=== PATIENT | female | born 1990 | race Caucasian/White ===

== ENCOUNTER 2019-08-22 19:40 | Observation (INO) | payer OTHER, SELFPAY ==
--- NOTE | 2019-08-22 19:38 | PC.NURSE ---
OB contacted with patient information, okay to bring it.
--- NOTE | 2019-08-22 19:40 | PC.NURSE ---
Patient taken to OB via wheelchair
[2019-08-22 20:00] VITALS: BMI 44.6
[2019-08-22 20:10] VITALS: BP 138/64; PULSE 102; TEMP 37.4
[2019-08-22 20:41] LABS: Add Urine Microscopic? YES; Appearance Urine Clear (Clear); Bacteria Urine 1+ /hpf; Bilirubin Urine Negative (Negative); Blood Urine Negative (Negative); Color Urine Yellow (Yellow); Glucose Urine UA Negative (Negative); Ketones Urine 1+ mg/dL (Negative); Leukocyte Esterase Ur Negative LEU/UL (Negative); Mucus Urine Rare /lpf; Nitrate Urine Negative (Negative); Protein Urine Negative (Negative); RBC Urine 0-2 /hpf (0-2); Specific Grav Ur 1.012 (1.001-1.035); Squamous Epithelial Cell Urine Few /hpf (Few); Urobilinogen Urine Negative mg/dL (<2.0); WBC Urine 0-3 /hpf
[2019-08-22 21:01] VITALS: BP 128/66; PULSE 97
--- NOTE | 2019-09-26 05:04 | P.PNOB_ITS ---
OB - Triage/Final Diagnosis Visit Information Reason for evaluation: threatened labor Evaluation Laboratory results: Laboratory Tests 08/22/19 20:29 Urine Color Yellow Urine Appearance Clear Urine pH 6.0 Ur Specific [place] 1.012 Urine Protein Negative Urine Glucose (UA) Negative Urine Ketones 1+ H Ur Blood (Man) Negative Urine Nitrate Negative Urine Bilirubin Negative Urine Urobilinogen Negative Leukocyte Esterase Rfl Negative Urine RBC 0-2 Urine WBC 0-3 Ur Squamous Epith Cells Few Urine Bacteria 1+ H Urine Mucus Rare
== END 2019-08-22 21:20 | disposition home or self-care (01) ==
PROVIDERS: Admitting Provider Obstetrics & Gynecology; Visit Provider Obstetrics & Gynecology
DX: O47.9 False labor, unspecified (principal); Z3A.00 Weeks of gestation of pregnancy not specified
CPT/HCPCS: 81001; G0378; G0379

== ENCOUNTER 2019-09-25 21:40 | Observation (INO) | payer OTHER, SELFPAY ==
[2019-09-25] VITALS (9 sets, daily range): BP systolic 124–158; BP diastolic 67–97; PULSE 92–107; BMI 43.2
--- NOTE | 2019-09-29 17:12 | PM.OBTRLD ---
OB - Triage/Final Diagnosis Visit Information Reason for evaluation: threatened labor
== END 2019-09-26 00:22 | disposition home or self-care (01) ==
PROVIDERS: Admitting Provider Obstetrics & Gynecology; Visit Provider Obstetrics & Gynecology
DX: O47.03 False labor before 37 completed weeks of gestation, third trimester (principal); Z3A.36 36 weeks gestation of pregnancy
CPT/HCPCS: G0378; G0379

== ENCOUNTER 2019-09-29 20:10 | Observation (INO) | payer OTHER, SELFPAY ==
--- NOTE | 2019-09-29 20:10 | OBADM ---
This patient, Laquita Howe, admitted to the OB room Labor/Delivery/Recovery 103 for observation. Patient/family oriented to hospital policies and general routines including ID bracelet, bed and alarms, visiting hours, pain management, procedures, bathroom and other care routines, personal items, smoking policy, room service/diet, and visiting hours. Patient/Family are encouraged to report perceived risks to care and to ask questions if they do not understand what they are told or what they should do.
[2019-09-29 20:16] VITALS: BMI 44.1
[2019-09-29 20:24] VITALS: TEMP 36.9
--- NOTE | 2019-10-14 11:40 | PM.OBTRLD ---
OB - Triage/Final Diagnosis Visit Information Date of evaluation: 10/10/19 Reason for evaluation: threatened labor Evaluation Baseline heart rate: 140 Variability: Moderate (11-25) monitor accelerations: Present monitor decelerations: None Cervical dilation (cm): 2 Cervical effacement (%): 50 station: -2 Final Diagnosis (1) False labor: Code(s): O47.9 - False labor, unspecified Status: Acute
== END 2019-09-29 21:51 | disposition home or self-care (01) ==
PROVIDERS: Admitting Provider Obstetrics & Gynecology; Visit Provider Obstetrics & Gynecology
DX: O47.1 False labor at or after 37 completed weeks of gestation (principal); Z3A.37 37 weeks gestation of pregnancy
CPT/HCPCS: G0378; G0379

== ENCOUNTER 2019-10-05 18:28 | Observation (INO) | payer OTHER, SELFPAY ==
--- NOTE | 2019-10-05 18:28 | OBADM ---
This patient, Laquita Howe, admitted to the OB room Labor/Delivery/Recovery 108 for observation. Patient/family oriented to hospital policies and general routines including ID bracelet, bed and alarms, visiting hours, pain management, procedures, bathroom and other care routines, personal items, smoking policy, room service/diet, and visiting hours. Patient/Family are encouraged to report perceived risks to care and to ask questions if they do not understand what they are told or what they should do.
[2019-10-05 18:51] VITALS: TEMP 36.5
[2019-10-05 20:16] VITALS: BMI 44.2
--- NOTE | 2019-10-07 12:13 | PM.OBTRLD ---
OB - Triage/Final Diagnosis Visit Information Date of evaluation: 09/29/19 Reason for evaluation: threatened labor Evaluation Baseline heart rate: 135 Variability: Moderate (11-25) monitor accelerations: Present monitor decelerations: None Cervical dilation (cm): 0 Cervical effacement (%): 50 station: -3 Final Diagnosis (1) False labor: Code(s): O47.9 - False labor, unspecified Status: Acute Plan: home routine labor precautions
--- NOTE | 2019-10-07 14:17 | PM.OBTRLD ---
OB - Triage/Final Diagnosis Visit Information Date of evaluation: 10/05/19 Reason for evaluation: threatened labor Evaluation Baseline heart rate: 144 Variability: Moderate (11-25) monitor accelerations: Present monitor decelerations: None Cervical dilation (cm): 0 Cervical effacement (%): 50 station: -4 Final Diagnosis (1) False labor: Code(s): O47.9 - False labor, unspecified Status: Acute Plan: home
== END 2019-10-05 20:15 | disposition home or self-care (01) ==
PROVIDERS: Admitting Provider Obstetrics & Gynecology; Visit Provider Obstetrics & Gynecology
DX: O47.1 False labor at or after 37 completed weeks of gestation (principal); Z3A.37 37 weeks gestation of pregnancy
CPT/HCPCS: G0378; G0379

== ENCOUNTER 2019-10-12 15:45 | Inpatient (IN) | payer OTHER, SELFPAY ==
[2019-10-12] VITALS (114 sets, daily range): BP systolic 93–148; BP diastolic 49–97; PULSE 55–113; TEMP 36.6–36.9; O2SAT 95–100; BMI 44.6
--- NOTE | 2019-10-12 16:45 | WPDANESEPPF ---
Anes - Initial Pre Proc Eval Procedure: labor epidural Date/Time: 10/12/19 16:45 Surgeon: Bobby Bowen MD Pre Op Diagnosis: labor pain Pre Op Diagnosis: contractions Patient Data Age: 29 Gender: F Height: Weight: Last Vital Signs Pulse 98 10/12/19 16:30 BP 134/77 10/12/19 16:30 Allergies Allergy/AdvReac Type Severity Reaction Status Date / Time cocoa butter Allergy Mild Hives Verified 09/26/19 00:11 Home Medications Medication Instructions Recorded Confirmed Type PNV cmb#95-ferrous fumarate-FA 1 tablet PO DAILY 09/26/19 10/05/19 History [] aspirin 81 mg PO DAILY 09/26/19 10/05/19 History folic acid 4 mg PO DAILY 09/26/19 10/05/19 History progesterone micronized 200 mg PO BID 09/26/19 10/05/19 History riboflavin (vitamin B2) [Vitamin 400 mg PO DAILY 09/26/19 10/05/19 History B-2] cyanocobalamin (vitamin B-12) See Rx Instructions .ROUTE .COMPLEX 09/28/19 10/05/19 History Patient hx anesthesia problems: none Family hx anesthesia problems: none PMFSH Past Medical History Medical History (Updated 10/12/19 @ 16:45 by Jemal Felipe DO) Morbid obesity Pre-eclampsia TIA (transient ischemic attack) 21 years old Family History Family History (Updated 09/28/19 @ 14:42 by Elaina Mendoza RN) Father Kidney failure Arthritis Thyroid cancer Mother Tachycardia Thyroid cancer Social History Social History Substance use: never Gender identity (if verbalized by the patient): Female Spiritual care concerns: No Anes - Eval Final PreProcedure Day of Procedure 10/12/19 16:45 Patient weight: morbidly obese ASA classification: III Anesthesia type and monitoring: regional epidural Informed Consent: The patient's anesthetic plan and its attendant risks and benefits were discussed with the patient/family/POA. Questions were solicited and answers provided to the satisfaction of the patient/family/POA.
[2019-10-12] MEDS: LACTATED RINGERS 1,000 ML 125 ML IV CONT ×2 (16:58→17:41)
[2019-10-12 17:02] LABS: Basophils Percent Auto 0.3 % (0.2-1.2); Eosinophils Absolute Auto 0.2 K/mm3 (0-0.3); Eosinophils Percent Auto 1.7 % (0-4.4); Hematocrit 36.3 % (37.0-47.0); Hemoglobin 11.9 g/dL (12.0-15.0); Immature Granulocyte Absolute 0.05 K/mm3 (0.00-0.031); Immature Granulocyte Percent A 0.5 % (0-0.5); Lymphocytes Absolute Auto 1.84 K/mm3 (0.9-3.2); Lymphocytes Percent Auto 18.5 % (18.3-44.2); Mean Corpuscular HGB Conc 32.8 g/dl (32-36); Mean Corpuscular Hemoglobin 25.7 pg (26-34); Mean Corpuscular Volume 78.4 fl (80-100); Mean Platelet Volume 11.1 fl (7.4-10.4); Monocytes Absolute Auto 0.8 K/mm3 (0.1-0.6); Monocytes Percent Auto 7.6 % (2.6-8.5); Neutrophils Absolute Auto 7.1 K/mm3 (1.3-6.7); Neutrophils Percent Auto 71.4 % (45.5-73.1); Platelet Count Result 254 k/mm3 (150-375); Red Blood Count 4.63 M/mm3 (4.2-5.4); Red Cell Distribution Width 15.9 % (11.5-14.5)
--- NOTE | 2019-10-12 17:07 | LDADM ---
This patient, Laquita Howe, was admitted to Labor/Delivery/Recovery 107 on 10/12/19 at 15:45. Plans for labor, pain management and were discussed with patient. Patient/family oriented to hospital policies and general routines including ID bracelet, bed and alarms, visiting hours, pain management, procedures, bathroom and other care routines, personal items, smoking policy, room service/diet and guest tray routines, infant security routines, and visiting hours. Patient/Family are encouraged to report perceived risks to care and to ask questions if they do not understand what they are told or what they should do. See OBIX for further documentation.
[2019-10-12 17:24] LABS: Alanine Aminotransferase 19 U/L (4-35); Albumin Level 3.2 g/dL (3.5-5.1); Alkaline Phosphatase 134 U/L (38-126); Anion Gap 8 mmol/L (8-16); Aspartate Amino Transferase 18 U/L (14-36); Bilirubin,Total 0.1 mg/dL (0.2-1.3); Blood Urea Nitrogen 8 mg/dL (7-17); Carbon Dioxide 19 mmol/L (22-30); Chloride 104 mmol/L (98-107); Estimated Glomerular Filt Rate > 60; Glucose 187 mg/dL (65-105); Potassium 3.9 mmol/L (3.4-5.0); Sodium 131 mmol/L (137-145)
[2019-10-12 17:24] LABS: Uric Acid 4.6 mg/dL (2.5-7.5)
[2019-10-12 18:33] LABS: HIV 1/2 Ab P24 Ag Result Negative (Negative)
[2019-10-12] MEDS: OXYTOCIN 30 UNITS/NS 500 ML 30 UNITS/500 ML BAG IV CONT (18:42)
--- NOTE | 2019-10-12 19:42 | PM.IMHP ---
H&P: HPI History of Present Illness Date/Time: 10/12/19 19:42 Chief complaint: contractions Narrative: Laquita Howe is a 29 year old female at 38.2 JD 10/24/19 here with spontaneous onset of labor now active phase with BBOW Review of Systems Review of Systems: All systems reviewed & are unremarkable except as noted in HPI and below Constitutional: Constitutional: Reports no additional constitutional complaints Eyes: Eyes: Reports no additional eye complaints ENT: Reports system reviewed and no additional complaints, except as documented Cardiovascular: Cardiovascular: Reports no additional cardiovascular complaints Respiratory: Respiratory: Reports no additional respiratory complaints Gastrointestinal: Gastrointestinal: Reports no additional gastrointestinal complaints Genitourinary: Genitourinary: Reports no additional female genitourinary complaints Musculoskeletal: Musculoskeletal: Reports no additional musculoskeletal complaints Integumentary/Breasts: Skin/Breast: Reports system reviewed and no additional complaints, except as docu Neurologic: Reports system reviewed and no additional complaints, except as documented Psychiatric: Psychiatric: Reports no additional psychiatric complaints Endocrine: Endocrine: Reports no additional endocrine complaints Hematologic/Lymphatic: Hematologic/Lymphatic: Reports no additional hematologic/lymphatic complaints Allergic/Immunologic: Allergic/Immunologic: Reports no additional allergic/immunologic complaints [facility] Past Medical History Medical History (Updated 10/12/19 @ 20:04 by Bobby Bowen MD) Chronic hypertension AV (generalized anxiety disorder) GERD (gastroesophageal reflux disease) History of pre-eclampsia HPV (human papilloma virus) infection MDD (major depressive disorder) Morbid obesity Nephrolithiasis TIA (transient ischemic attack) 21 years old Vaginal delivery 11/23/2009 8-11 male Vaginal delivery 12/06/2017 7-3 male Surgical History Surgical History History of cholecystectomy History of removal of calculus of renal pelvis through percutaneous nephrostomy History of tonsillectomy Family History Family History Father Kidney failure Arthritis Thyroid cancer Mother Tachycardia Thyroid cancer Grandparent Cerebrovascular accident Hypertension Kidney failure Thyroid cancer Heart disease Depression Son Asthma ADD (attention deficit disorder) Depression Social History Social History Smoking packs per day: 3 Smoking cigarettes per day: 60.0 Years smoked: 10 Smoking pack-years: 30.00 Smoking status: Former smoker Tobacco type: cigarettes Second hand tobacco smoke exposure: Yes Alcohol intake: former Substance use: never Substance use type: does not use Living arrangements: with family 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 Gender identity (if verbalized by the patient): Female Sexual Orientation (if Verbalized by the Patient): Straight or Heterosexual Spiritual care concerns: No Agree to blood products: Yes Meds Home Medications and Allergies Home Medications Medication Instructions Recorded Confirmed Type PNV cmb#95-ferrous fumarate-FA 1 tablet PO DAILY 09/26/19 10/05/19 History [] aspirin 81 mg PO DAILY 09/26/19 10/05/19 History folic acid 4 mg PO DAILY 09/26/19 10/05/19 History progesterone micronized 200 mg PO BID 09/26/19 10/05/19 History riboflavin (vitamin B2) [Vitamin 400 mg PO DAILY 09/26/19 10/05/19 History B-2] cyanocobalamin (vitamin B-12) See Rx Instructions .ROUTE .COMPLEX 09/28/19 10/12/19 History Allergies Allergy/AdvReac Type Severity Reaction Status Date / Time cocoa butter Allergy Mild Hives Verified 09/26/19 00:1
--- NOTE | 2019-10-12 20:05 | WPDHPUPDATE1 ---
History and Physical Update Update Date/Time: 10/12/19 20:05 History and Physical has been reviewed, including an updated exam of the patient. There are NO changes in the patient's condition. Risks, benefits, and alternatives have been discussed and questions answered. Patient agrees to proceed with procedure.
--- NOTE | 2019-10-12 20:05 | WPDOBADMIT ---
Obstetrics - Admit Note Admission Note: record reviewed. No pertinent additions to the history and/or any subsequent changes in the physical findings that are not consistent with the expected course of the were found. Additions to the history and/or subsequent changes in the physical findings follow. None. SOOL 4cm fht stable on admit
--- NOTE | 2019-10-12 20:06 | PM.OBPNLAB ---
Pain Control Date/time seen: 10/12/191922 Pain control: tolerating well and epidural Pelvic Exam Dilation (cm): 7 Effacement (%): 90 station: -2 Amniotic membrane status: Bulging Comments: arom performed with fse tube 2500-3000cc clear af removed fse and iupc placed without difficulty fht stable Contractions Monitor mode: External Contraction frequency: 5 Contraction duration: 45 Contraction pattern: Regular Contraction intensity: Moderate Status status: Category l Assessment and Plan Assessment: active labor Plan: continuous present management and begin patient augmentation Comments: anticipate vag delivery
--- NOTE | 2019-10-12 23:22 | PM.OBPNLAB ---
Pain Control Date/time seen: 10/12/19 21:22 Pain control: tolerating well and epidural Pelvic Exam Dilation (cm): 8 Effacement (%): 100 station: 0 Amniotic membrane status: Ruptured Contractions Monitor mode: Internal Contraction frequency: 5 Contraction pattern: Regular Contraction intensity: Moderate Status status: Category l Assessment and Plan Pitocin rate (mU/min): 10 Assessment: active labor Plan: continuous present management
--- NOTE | 2019-10-12 23:23 | PM.OBPRVD ---
OB - Delivery Note Procedure Delivery date: 10/12/19 Procedure: nsvvd events: Polyhydramnios Intrapartal events: Hydramnios Delivery augmentation: rupture of membranes Delivery monitor: internal FHT and internal uterine Route of delivery: Episiotomy description: None Laceration description: None Specimen: Yes Estimated blood loss (mL): 54 Anesthesia type: Epidural Disposition: floor Narrative: patient had a normal spontaneous vertex vaginal delivery over intact perineum of a viable female infant spontaneous respirations and cry follow-up suction normal transition placenta spontaneous intact three-vessel cord no episiotomy no lacerations cervix rectal check no sponges left in the vagina and no fistula sphincter is intact mom and baby in delivery room in stable condition count correct complications none Baby Date of : 10/12/19 Time of : 23:10 Weeks of gestation at delivery: 38 Infant gender: Female Weight (pounds): 8 Weight (ounces): 13 presentation: vertex position: Right Occiput Anterior Placenta delivery description: Spontaneous cord vessel description: 3 Vessels score one minute: 8 score five minutes: 9
[2019-10-12] MEDS: OXYTOCIN 30 UNITS/NS 500 ML 30 UNITS/500 ML BAG 125 UNITS IV CONT (23:45)
[2019-10-13] VITALS (7 sets, daily range): BP systolic 120–144; BP diastolic 60–82; PULSE 87–103; RESP 12–18; TEMP 36.5–37.1; O2SAT 98–100
[2019-10-13] MEDS: BENZOCAINE 20% AER SPR (*SP) 56 GM CAN 1 SPRAY TOPICAL (00:15)
[2019-10-13] MEDS: IBUPROFEN 600 MG TABLET PO ×5 (00:15→23:32)
[2019-10-13] MEDS: WITCH HAZEL 40 PADS 1 PAD TOPICAL (00:15)
--- NOTE | 2019-10-13 01:44 | PC.NURSE ---
0141 Pt to floor per wheelchair accompanied by baby in crib and staff. Plan of care and floor routines explained to patient and she voices understanding. Mom encouraged to make needs and concerns known to staff.
[2019-10-13 05:51] LABS: Hematocrit 31.7 % (37.0-47.0); Hemoglobin 10.4 g/dL (12.0-15.0)
[2019-10-13 07:29] LABS: Rapid Plasma Reagin Non-Reactive (NonReactive)
--- NOTE | 2019-10-13 07:43 | WPDANLDPN2 ---
Anes-Prog Note L&D Date/Time: 10/13/19 07:43 Comfortable throughout: labor Neuraxial method: epidural Epidural/Spinal procedure site: clean & non-tender Neuro status: Neuro function grossly intact. Cardiovascular status: normal Respiratory status: normal Airway patency: baseline Mental status: baseline Post-Op hydration status: normal Vital Signs: Last Vital Signs Temp 36.9 C 10/13/19 03:01 Pulse 87 10/13/19 03:01 Resp 12 10/13/19 03:01 BP 120/68 10/13/19 03:01 Pulse Ox 98 10/12/19 23:19 I/O: Intake & Output 10/12/19 10/12/19 10/13/19 15:59 23:59 07:59 Intake Total 1500 Output Total 117 Balance 1500 -117 Post-procedural complaints: none Patient feedback: Patient satisfied with anesthetic care.
[2019-10-13] MEDS: MULTIVIT/MIN/PREN/FOL AC/IRON TABLET 1 TAB PO (08:55)
--- NOTE | 2019-10-13 10:30 | PC.NURSE ---
Consulted with patient, upon entering mother has infant to breast. Mother reports last child for 11 months with no issues. Mother has infant latched in cross cradle, is eagerly nursing. Reviewed infant feeding cues, frequencies, duration of feedings, feeding elimination flow sheet, and signs of adequate intake. Reviewed positioning/alignment, holding breast in U hold and guided asymmetrical latch on. Infant nursed eagerly, with steady draws and frequent swallowing noted. Reviewed signs of a correct latch, effective nursing and suck swallow ratio. Infant was able to maintain latch without discomfort to mother. Nipple care reviewed. Instructed mother to call out for RN assistance if she is unable to latch for feeding or she has discomfort with nursing. Instructed feeding should be initiated three hours from start of last feeding or if feeding cues are noted before. Mother voiced understanding of information shared.
[2019-10-14] MEDS: BENZOCAINE 20% AER SPR (*SP) 56 GM CAN 1 SPRAY TOPICAL (06:45)
[2019-10-14] MEDS: WITCH HAZEL 40 PADS 1 PAD TOPICAL (06:45)
[2019-10-14] MEDS: IBUPROFEN 600 MG TABLET PO ×3 (06:46→17:56)
[2019-10-14] MEDS: DOCUSATE SODIUM 100 MG CAPSULE PO ×2 (06:46→16:46)
[2019-10-14] MEDS: MULTIVIT/MIN/PREN/FOL AC/IRON TABLET 1 TAB PO (06:46)
[2019-10-14 07:45] VITALS: BP 152/84; PULSE 94; RESP 18; TEMP 36.6; O2SAT 99
--- NOTE | 2019-10-14 11:10 | PC.NURSE ---
consult with pt. mother states she began supplementing last evening, was fussy after feedings. Mother was concerned was sleepy at times and was not getting enough. is under bili lights since last night. Mother is pumping after all breastfeedings and will offer expressed milk as part of supplement along with some formula. Infant will eagerly latch without difficulties or discomfort, she is on and off during feedings. Mother states today is on and off during feedings and spitting up freq. Discussed spitting up is common for the first few days and to report to RN if more than small amounts. Requested mother call out for observation of infant feeding for concerns with her on and off while feeding.
--- NOTE | 2019-10-14 15:08 | P.PNOB_ITS ---
OB - PN: Subj Subjective Date/time seen: 10/13/19 18:08 Patient comments: no complaints, pain well controlled, tolerating diet and flatus present [place] baby status: doing well [place] feeding status: exclusively breast feeding OB - PN: Obj Data Labs CBC & Chem 7: 10/13/19 05:18 10/12/19 16:48 OB - PN A/P Assessment and Plan (1) Term delivered: Code(s): O80 - Encounter for full-term uncomplicated delivery Status: Acute (2) Polyhydramnios: Code(s): O40.9XX0 - Polyhydramnios, unspecified trimester, not applicable or unspecified Status: Acute (3) Chronic hypertension: Code(s): I10 - Essential (primary) hypertension Status: Acute (4) AV (generalized anxiety disorder): Code(s): F41.1 - Generalized anxiety disorder Status: Acute (5) Compound heterozygous MTHFR mutation [id number]: Code(s): E72.12 - Methylenetetrahydrofolate reductase deficiency Status: Acute (6) Morbid obesity: Code(s): E66.01 - Morbid (severe) obesity due to excess calories Status: Acute Time Spent With Patient Time: Total time spent is greater than 50% in coordination of care (as documented) at patient's floor/unit and/or counseling patient: Review of Systems Review of Systems: All systems reviewed & are unremarkable except as noted in HPI and below Exam Const: General: comfortable and no acute distress Orientation/consciousness: patient oriented x3 Chest: Breast/axilla inspection: normal inspection of the breasts Breast/axilla palpation: normal palpation of the breasts Resp: Effort & Inspection: normal respiratory effort Auscultation: clear to auscultation bilaterally Cardio: Rate: regular rate GI: Auscultation: normal bowel sounds : General: Yes bladder normal to inspection and Yes no CVA tenderness Manual OB Exam: Deferred manual OB exam Psych: Appearance: grossly normal Mental Status: mental status grossly normal Affect: normal affect Attitude: cooperative Judgement: Good judgement present (Psych)
--- NOTE | 2019-10-14 15:11 | PM.OBDSVD ---
DS: Admitting Diagnosis Admitting Diagnosis Admitting Diagnosis: contractions term spontaneous onset of labor polyhydramnios obesity MTHFR DS: Discharge Diagnosis Discharge Diagnosis (1) Term delivered: Code(s): O80 - Encounter for full-term uncomplicated delivery Status: Acute (2) Spontaneous onset of labor: Status: Acute (3) GERD (gastroesophageal reflux disease): Code(s): K21.9 - Gastro-esophageal reflux disease without esophagitis Status: Acute (4) MDD (major depressive disorder): Code(s): F32.9 - Major depressive disorder, single episode, unspecified Status: Acute (5) HPV (human papilloma virus) infection: Code(s): B97.7 - Papillomavirus as the cause of diseases classified elsewhere Status: Acute (6) AV (generalized anxiety disorder): Code(s): F41.1 - Generalized anxiety disorder Status: Acute (7) Chronic hypertension: Code(s): I10 - Essential (primary) hypertension Status: Acute (8) Polyhydramnios: Code(s): O40.9XX0 - Polyhydramnios, unspecified trimester, not applicable or unspecified Status: Acute (9) Pre-eclampsia: Code(s): O14.90 - Unspecified pre-eclampsia, unspecified trimester Status: Acute (10) Morbid obesity: Code(s): E66.01 - Morbid (severe) obesity due to excess calories Status: Acute (11) Compound heterozygous MTHFR mutation [id number]: Code(s): E72.12 - Methylenetetrahydrofolate reductase deficiency Status: Acute OB - DS: Summary Hospital Course Time spent discussing smoking cessation with patient: 3 to 10 minutes OB Procedures : NST and Ultrasound OB Procedures Intrapartum: Spontaneous Vag Delivery OB Procedures: : None Peripartum Data Infant Delivery Method: Natural Vaginal Laceration description: None complications: none [place] 1: Gender: Female Disposition of : home Status at Discharge Functional status at discharge: independent ambulation Overall status at discharge: patient is back to baseline Time Spent with Patient Time attestation: Total time spent providing and/or coordinating discharge services: Time spent: Less than 30 minutes Exam Const: General: comfortable, no acute distress, alert and awake Orientation/consciousness: patient oriented x3 Limitations: no limitations Chest: Breast/axilla inspection: normal inspection of the breasts Breast/axilla palpation: normal palpation of the breasts Resp: Effort & Inspection: normal respiratory effort Auscultation: clear to auscultation bilaterally Cardio: Rate: regular rate GI: GI Palp: Yes Soft to palpation Percussion: Yes normal to percussion : General: Yes bladder normal to inspection and Yes no CVA tenderness Manual OB Exam: Deferred manual OB exam Psych: Appearance: grossly normal Affect: normal affect Attitude: cooperative Thought content: Yes Normal thought content present Judgement: Good judgement present (Psych) DS: Data Data Completed and Pending Pending studies at discharge: Pending at discharge 10/12/19 23:10 Surgical [PTH] Routine Discharge Plan Discharge Attending physician on discharge: Bobby Bowen Discharging Clinician: Bobby Bowen Anticipated Discharge Date/Time: 10/14/19 15:14 Patient Disposition: Home, Self-Care Activity: may shower, unlimited and may drive after 2 weeks Diet: as tolerated and regular Wound Care Instructions: follow printed instructions Discharge Instructions: routine Patient Instructions: Antibiotic Form Stand Alone Forms: General Discharge Information Follow-up/Referrals: Bobby Bowen MD [Physician] - Discharge Medications: New ibuprofen 600 mg Tablet 600 mg PO Q6H Qty: 90 RF: 2 Continued PNV cmb#95-ferrous fumarate-FA [] 28 mg iron- 800 mcg tablet 1 tablet PO DAILY Qty: 100 RF: 3 D
[2019-10-17 10:14] VITALS: BP 154/88; PULSE 83; RESP 20; TEMP 37; O2SAT 99
== END 2019-10-14 18:15 | disposition home or self-care (01) | DRG 560 ==
LOC: ANHLDR 16:20 → ANHOB2 10-13 01:57
PROVIDERS: Admitting Provider Obstetrics & Gynecology; Visit Provider Obstetrics & Gynecology
DX: O40.3XX0 Polyhydramnios, third trimester, not applicable or unspecified (principal); Z37.0 Single live birth; Z3A.38 38 weeks gestation of pregnancy; O10.92 Unspecified pre-existing hypertension complicating childbirth; O99.214 Obesity complicating childbirth; E66.01 Morbid (severe) obesity due to excess calories; O99.344 Other mental disorders complicating childbirth; F41.1 Generalized anxiety disorder; F32.9 Major depressive disorder, single episode, unspecified; O99.62 Diseases of the digestive system complicating childbirth; K21.9 Gastro-esophageal reflux disease without esophagitis; O99.284 Endocrine, nutritional and metabolic diseases complicating childbirth; E72.12 Methylenetetrahydrofolate reductase deficiency
CPT/HCPCS: 36415; 80053; 84550; 85014; 85018; 85025; 86592; 86703; 86850; 86900; 86901; 88307; A9270; G0432; J2590; J2795; J7120

== ENCOUNTER 2020-05-01 10:54 | Observation (INO) | payer OTHER, SELFPAY ==
[2020-05-01] VITALS (18 sets, daily range): BP systolic 97–138; BP diastolic 48–88; PULSE 74–115; RESP 13–22; TEMP 36.4–38.1; O2SAT 96–100
--- NOTE | ~2020-05-01 | CT_ITS ---
EXAMINATION: CT chest abdomen pelvis w con DATE: 05/01/2020 12:28 INDICATION: Syncope. Right upper quadrant abdominal pain. Nausea and vomiting. Hypotension. TECHNIQUE: Computed tomography (CT) of the chest, abdomen, and pelvis was performed with 100 cc Omnip aque 350 intravenous contrast. Automated exposure control and iterative reconstruction technique were employed. Exam dose: 2021.62 mGy-cm total exam DLP. COMPARISON: 05/01/2020 portable AP chest is not available on PACS at this time FINDINGS: CHEST CT: There is an approximately 9 mm posterior basilar left lower lobe pulmonary nodule. Differential diagn osis includes pulmonary granuloma, hamartoma, less likely pulmonary malignancy. No pulmonary infiltrate or consolidation. No hilar or mediastinal mass lesion or lymphadenopathy. Normal heart size. No thoracic aortic aneurys m or dissection is evident. ABDOMEN/PELVIS CT: The gallbladder is present. No bile duct or pancreatic duct dilatation. Diffuse hepatic steatosis. No hepatic, splenic, pancreatic, and adrenal or renal space-occupying mass lesion is evident. Normal ca liber of the abdominal aorta. No intraperitoneal or retroperitoneal or pelvic mass lesion or adenopat hy or ascites. Retroflexed uterus. The urinary bladder and adnexal areas are unremarkable. No bowel obstruction, bowel wall thickening, pneumatosis or intraperitoneal free air. Small fat-containing umbilical hernia. Included skeletal structures are unremarkable. IMPRESSION: 9 mm nonspecific left lower lobe pulmonary nodule; diffusion diagnosis includes pulmonar y granuloma, hamartoma, less likely pulmonary malignancy Diffuse hepatic steatosis Retroflexed uterus Reviewed, dictated and finalized at [facility]. Reviewed, dictated and finalized at location B. IMPRESSION: 9 mm nonspecific left lower lobe pulmonary nodule; diffusion diagn osis includes pulmonary granuloma, hamartoma, less likely pulmonary malignancy Diffuse hepatic steatosis Retroflexed uterus
--- NOTE | ~2020-05-01 | US_ITS ---
EXAMINATION: US carotid duplex BI DATE: 05/02/2020 09:54 INDICATION: Syncope TECHNIQUE: Grayscale, color Doppler, and pulsed Doppler images of the cervical carotid arteries were obtained. The degree of vessel stenosis is placed in one of the following categories: normal, <50%, 5 0-69%, >=70% but less than near-occlusion, near-occlusion, or total occlusion. Note that percent sten osis relative to normal distal artery lumen diameter is indirectly measured from velocity measurement s as described by Regulo, et al. Radiology 2003; 229:340-346. COMPARISON: None. FINDINGS: RIGHT: The right common carotid artery (CCA) peak systolic velocity (PSV) is 111 cm/s. The right internal ca rotid artery (ICA) PSV is 118 cm/s. The right ICA end-diastolic velocity (EDV) is 45 cm/s. The right ICA/CCA PSV ratio is 1.1. Grayscale and color Doppler images of the stress no evident stenosis or gregory que in the ICA. The external carotid artery (ECA) PSV is 100 cm/s. There is antegrade flow in the rig ht vertebral artery. LEFT: The left CCA PSV is 135 cm/s. The left ICA PSV is 117 cm/s. The left ICA EDV is 44 cm/s. The left ICA /CCA PSV ratio is 0.9. Grayscale and color Doppler images and straight no evident stenosis or plaque in the ICA. The ECA PSV is 113 cm/s. There is antegrade flow in the left vertebral artery. IMPRESSION: 1. Normal study. No evident plaque or stenosis in the either the left or right internal carotid arter ies. Reviewed, dictated and finalized at location A. IMPRESSION: 1. Normal study. No evident plaque or stenosis in the either the left or right internal carotid arteries.
--- NOTE | ~2020-05-01 | US_ITS ---
US abdomen complete EXAMINATION: US Abdomen Complete INDICATION: Generalized abdominal pain PROCEDURE: Realtime High Resolution abdomen ultrasound. COMPARISON: No prior studies for comparison FINDINGS: Gallbladder is surgically absent. Common bile duct measures 6 mm. Liver echotexture is increased, consistent with fatty infiltration. Liver is enlarged measuring 19.8 cm.. Pancreas within normal limits. Pancreatic tail is obscured by bowel gas. Spleen is enlarged m easuring 15.5 cm. Renal echotexture is within normal limits bilaterally without hydronephrosis, conto ur deforming mass or renal stone. Right kidney measures 12.2 cm. Left kidney measures 14 cm. Visualized aspects of the aorta and IVC are within normal limits. Portal vein is patent. IMPRESSION: 1: Hepatosplenomegaly. 2: Status post cholecystectomy. Reviewed, dictated and finalized at location A.
--- NOTE | ~2020-05-01 | XR_ITS ---
EXAMINATION: XR chest 1V portable 05/01/2020 12:39 INDICATION: Abdomen pain. Syncope. PROCEDURE: AP portable chest COMPARISON: No prior studies for comparison. FINDINGS: The lungs are clear. The cardiomediastinal silhouette is within normal limits. There are no pleural effusions. There is no pneumothorax suspected. IMPRESSION: 1: NO ACUTE CARDIOPULMONARY DISEASE. Reviewed, dictated and finalized at location A.
[2020-05-01 11:38] LABS: Basophils Percent Auto 0.4 % (0.2-1.2); Eosinophils Absolute Auto 0.1 K/mm3 (0-0.3); Eosinophils Percent Auto 1.1 % (0-4.4); Hematocrit 41.6 % (37.0-47.0); Hemoglobin 13.4 g/dL (12.0-15.0); Immature Granulocyte Absolute 0.03 K/mm3 (0.00-0.031); Immature Granulocyte Percent A 0.3 % (0-0.5); Lymphocytes Absolute Auto 0.67 K/mm3 (0.9-3.2); Lymphocytes Percent Auto 7.3 % (18.3-44.2); Mean Corpuscular HGB Conc 32.2 g/dl (32-36); Mean Corpuscular Hemoglobin 26.3 pg (26-34); Mean Corpuscular Volume 81.6 fl (80-100); Mean Platelet Volume 9.3 fl (7.4-10.4); Monocytes Absolute Auto 0.8 K/mm3 (0.1-0.6); Monocytes Percent Auto 8.4 % (2.6-8.5); Neutrophils Absolute Auto 7.6 K/mm3 (1.3-6.7); Neutrophils Percent Auto 82.5 % (45.5-73.1); Platelet Count Result 242 k/mm3 (150-375); Red Cell Distribution Width 14.3 % (11.5-14.5); White Blood Count 9.2 K/mm3 (4.5-10.0)
--- NOTE | 2020-05-01 11:41 | PC.NURSE ---
Provider at bedside.
[2020-05-01] MEDS: ONDANSETRON INJ 4 MG/2 ML VIAL IV PUSH ×3 (11:42→18:17)
[2020-05-01] MEDS: SODIUM CHLORIDE 0.9% IV 1,000 ML 999 ML IV CONT ×2 (11:42→12:00)
--- NOTE | 2020-05-01 11:43 | ECG_ITS ---
Measurements Intervals [place] Rate: 85 P: 41 MD: 171 QRS: 39 QRSD: 84 T: 18 QT: 370 QTc: 440 Interpretive Statements SINUS RHYTHM BORDERLINE T WAVE ABNORMALITY- INFERIOR LEADS BASELINE ARTIFACT- V1 BORDERLINE ECG Electronically Signed On 05-01-2020 12:07:38 CDT by Jayden Handley D.O.
--- NOTE | 2020-05-01 11:44 | ED.ABDPAIN ---
HPI - Abdominal Pain General Chief Complaint: Abdominal Pain Stated Complaint: abd pain, vomiting Time Seen by Provider: 05/01/20 11:43 Source: patient Mode of arrival: wheelchair Limitations: no limitations History of Present Illness HPI narrative: Patient is a 30-year-old female who presents for evaluation of abdominal pain, nausea and vomiting. Patient states she experienced right upper quadrant abdominal pain last evening, as well as numerous episodes of emesis. Emesis is nonbloody, nonbilious. No fever, she has experienced chills. She denies any chest pain or shortness of breath. Patient states she has felt generally weak, denying any numbness. She has passed out several times at home per patient. Patient denies any dark or tarry stools. No recent infections or illnesses. No recent sick contacts. She denies history of heart attack. She states she does have a history of TIA. She is not on any anticoagulation. Related Data Allergies Allergy/AdvReac Type Severity Reaction Status Date / Time cocoa butter Allergy Mild Hives Verified 09/26/19 00:11 Review of Systems Review of Systems: Narrative: CONSTITUTIONAL: Denies fever, reports chills and diaphoresis EYES: Denies visual changes, redness, or discharge. ENT: Denies rhinorrhea, congestion, sore throat, or otalgia. CARDIOVASCULAR: Denies chest pain, palpitations, or edema. RESPIRATORY: Denies cough or dyspnea. GASTROINTESTINAL: Reports abdominal pain, nausea and vomiting GENITOURINARY: Denies dysuria or hematuria. SKIN: Denies rash or itching. MUSCULOSKELETAL: Denies back pain, joint pain, or myalgia. NEUROLOGIC: Denies headache, numbness, reports feeling generally weak PMFSH Past Medical History Medical History Chronic hypertension AV (generalized anxiety disorder) GERD (gastroesophageal reflux disease) History of pre-eclampsia HPV (human papilloma virus) infection MDD (major depressive disorder) Morbid obesity Nephrolithiasis TIA (transient ischemic attack) 21 years old Vaginal delivery 11/23/2009 8-11 male Vaginal delivery 12/06/2017 7-3 male Surgical History Surgical History History of cholecystectomy History of removal of calculus of renal pelvis through percutaneous nephrostomy History of tonsillectomy Family History Family History Father Kidney failure Arthritis Thyroid cancer Mother Tachycardia Thyroid cancer Grandparent Cerebrovascular accident Hypertension Kidney failure Thyroid cancer Heart disease Depression Son Asthma ADD (attention deficit disorder) Depression Social History Social History Smoking packs per day: 3 Smoking cigarettes per day: 60.0 Years smoked: 10 Smoking pack-years: 30.00 Smoking status: Former smoker Tobacco type: cigarettes Second hand tobacco smoke exposure: Yes Alcohol intake: former Substance use: never Substance use type: does not use 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 EYES: 2+ PERRLA and EOMI. ENT: Nares clear, no rhinorrhea or epistaxis. Mucous membranes dry. NECK: Supple. CHEST: No respiratory distress, breathing even and non labored HEART: Regular rate, sinus rhythm ABDOMEN:Non distended, tender to palpation, RUQ, epigastric and umbilical area, + guarding, non rigid,no rebound EXTREMITIES: Normal range of motion. No edema. SKIN: Pale, warm, dry, no rash. NEURO:No focal deficits. Alert and oriented x3 Course Vital Signs Vital signs: Vital Sig
[2020-05-01 11:50] LABS: Alanine Aminotransferase 46 U/L (4-35); Albumin Level 4.6 g/dL (3.5-5.1); Alkaline Phosphatase 68 U/L (38-126); Anion Gap 7 mmol/L (8-16); Aspartate Amino Transferase 39 U/L (14-36); Bilirubin,Total 0.3 mg/dL (0.2-1.3); Blood Urea Nitrogen 15 mg/dL (7-17); Calcium 9.6 mg/dL (8.4-10.2); Carbon Dioxide 28 mmol/L (22-30); Chloride 104 mmol/L (98-107); Estimated CRCL calculation 148 ml/min; Estimated Glomerular Filt Rate > 60; Glucose 126 mg/dL (65-105); Lipase 65 U/L (23-300); Potassium 4.9 mmol/L (3.4-5.0); Sodium 139 mmol/L (137-145)
[2020-05-01] MEDS: MORPHINE SULFATE (*CRX) 4 MG/ML INJ IV PUSH ×4 (12:00→21:57)
[2020-05-01 12:02] LABS: Alveolar/Arterial O2 Gradient 26.6 mmHg; Carboxyhemoglobin 0.4 % THb (0-2.0); Device ROOM AIR; Fractional Inspired Oxygen 21 %; HCO3 ABG 22.8 mEq/l (22.0-26.0); Methemoglobin ABG 0.3 %THb (0-1.5); Modified Allen's Test Pass; Oxygen Content ABG 16.7 %vol (16.0-22.0); Oxygen Saturation ABG 93.1 % (95.0-100.0); Oxyhemoglobin 92.4 % THb (90.0-100.0); PCO2 ABG 43.9 mmHg (35.0-45.0); PO2 ABG 70.6 mmHg (80.0-100.0); PO2 FiO2 Ratio Arterial Blood 3.36 %; Reduced Hemoglobin 6.9 %THb (0-5.0); Site Drawn RIGHT RADIAL; Total Hemoglobin 12.8 g/dL (12.0-18.0); pH ABG 7.334 (7.350-7.450)
[2020-05-01 12:21] LABS: Add Urine Microscopic? YES; Appearance Urine Clear (Clear); Bilirubin Urine 1+ (Negative); Blood Urine Trace-Intact (Negative); Color Urine Yellow (Yellow); Glucose Urine UA Negative (Negative); Ketones Urine 1+ mg/dL (Negative); Leukocyte Esterase Ur Negative LEU/UL (Negative); Nitrate Urine Negative (Negative); Protein Urine 3+ mg/dL (Negative); Specific Grav Ur >= 1.030 (1.001-1.035); Urobilinogen Urine 0.2 mg/dL (<2.0); pH Urine 6.5 (5.0-9.0)
[2020-05-01 12:24] LABS: Squamous Epithelial Cell Urine Many /hpf (Few)
[2020-05-01 12:25] LABS: Bacteria Urine 2+ /hpf
--- NOTE | 2020-05-01 12:32 | PC.NURSE ---
Pt back from CT at this time, xray at bedside.
[2020-05-01 12:58] LABS: INR 1.1; Lactic Acid Reflex 1.4 mmol/L (0.7-2.1); Partial Thromboplastin Time 29.4 SECONDS (22.3-36.8); Prothrombin Time 14.7 Seconds (11.1-14.7)
[2020-05-01 13:14] LABS: NT Pro B Type Natriuretic Pept 33 PG/ML (5-100); Troponin I < 0.012 ng/mL (0.000-0.034)
[2020-05-01 13:33] LABS: Thyroid Stimulating Hormone 0.938 uIU/mL (0.465-4.680)
--- NOTE | 2020-05-01 15:05 | ADMGEN ---
This patient, Laquita Howe, was admitted to [facility] Surg Room 310-01. Patient/family oriented to hospital policies and general routines including ID bracelet, bed and alarms, visiting hours, pain management, procedures, bathroom and other care routines, personal items, smoking policy, room service/diet, and visiting hours. Information on how to activate the Rapid Response Team has been discussed. Patient/Family are encouraged to report perceived risks to care and to ask questions if they do not understand what they are told or what they should do.
[2020-05-01] MEDS: SODIUM CHLORIDE 0.9% IV 1,000 ML 125 ML IV CONT ×2 (15:14→23:09)
[2020-05-01] MEDS: FAMOTIDINE 20 MG/2 ML VIAL IV PUSH ×2 (15:38→20:19)
[2020-05-01 17:10] LABS: Troponin I < 0.012 ng/mL (0.000-0.034)
--- NOTE | 2020-05-01 18:00 | PM.IMHP ---
H&P: HPI History of Present Illness Date/Time: 05/01/20 18:00 Chief Complaint: Abdominal pain, nausea, and vomiting. Narrative: This is a 30-year-old female with hypertension who presented to the emergency department earlier today from home for evaluation of abdominal pain, nausea, and vomiting. She developed sharp and shooting periumbilical abdominal pain last night but seemed to be self-limiting and she was able to sleep overnight. This morning the pain returned and has been severe, associated with nausea and innumerable bouts of nonbloody, nonbilious emesis. Since that time she has felt quite weak and she reports having passed out several times in the car on the way to the hospital. On arrival to the emergency department she had a near syncopal episode in which she became pale, weak, and nearly unresponsive. Her blood pressure 97/64 but that has improved with IV fluid rehydration. She had a small but otherwise unremarkable bowel movement this morning. She used to suffer from GERD years ago but has not had troubles with that for a long time and denies that this is similar. She does take ibuprofen but certainly not on a daily basis. She consumes perhaps 2 cups of coffee a day. No sick contacts. She denies chest pain shortness of breath. No hematemesis, melena, or hematochezia. Review of Systems Review of Systems: Narrative: Twelve systems were reviewed with pertinent positives and negatives as per HPI. No sinus congestion, rhinorrhea, otalgia, or odynophagia. No exposure to those positive for COVID-19. She denies cough. No dysuria or hematuria. No history of pancreatitis or peptic ulcers. Except as documented, all other systems were reviewed and are negative. [facility] Past Medical History Medical History (Updated 05/01/20 @ 15:16 by Kristin Kapadia PA-C) Anxiety Chronic hypertension Compound heterozygous MTHFR mutation [id number] Depression Gastroesophageal reflux disease Hepatic steatosis History of pre-eclampsia Human papilloma virus infection Morbid obesity Nephrolithiasis Surgical History Surgical History (Updated 05/01/20 @ 22:21 by Kristin Kapadia PA-C) History of cholecystectomy History of lithotripsy History of tonsillectomy Family History Family History Father Kidney failure Arthritis Thyroid cancer Mother Tachycardia Thyroid cancer Grandparent Cerebrovascular accident Hypertension Kidney failure Thyroid cancer Heart disease Depression Son Asthma ADD (attention deficit disorder) Depression Social History Social History (Updated 05/01/20 @ 22:21 by Kristin Kapadia PA-C) Social History: Surrogate decision maker: Chris Matias, . Code status: Full code. Smoking status: Never smoker Alcohol intake: never Substance use: current Substance use type: marijuana Additional living arrangements comments: Lives in [place] with her and 3 children. 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 Gender identity (if verbalized by the patient): Female Sexual Orientation (if Verbalized by the Patient): Straight or Heterosexual Spiritual care concerns: No Agree to blood products: Yes Meds Home Medications and Allergies Home Medications Medication Instructions Recorded Confirmed Type PNV cmb#95-ferrous fumarate-FA 1 tablet PO DAILY #100 tablet 10/14/19 05/01/20 Rx [] ibuprofen 600 mg PO Q6H #90 tablet 10/14/19 05/01/20 Rx labetalol 200 mg PO BID 05/01/20 05/01/20 History Allergies Allergy/AdvReac Type Severity Reaction Status Date / Time cocoa butter Allergy Mild Hives Verified 09/26/19 00:11 Vital Signs Vital Signs - 24 hr 05/01/20 10:59 05/01/20 11:39 05/01/20 11:45 Temperature 98.2 F Pulse Rate 97 74 77 Respiratory Rate 18 22 H 19 Blood Pressure 138/88 97/64 L 137/83 Pulse O
[2020-05-01 18:02] LABS: Hepatitis B Surface Antigen Negative (Negative)
[2020-05-01 18:08] LABS: HAV RESULT Negative (Negative); Hepatitis B Core IgM Result Negative (Negative)
[2020-05-01 18:20] LABS: Hepatitis C Virus Antibody Reactive (Negative)
[2020-05-01] MEDS: PANTOPRAZOLE SODIUM IV 40 MG VIAL IV PUSH (20:19)
[2020-05-02] VITALS (18 sets, daily range): BP systolic 101–159; BP diastolic 58–91; PULSE 81–106; RESP 18–22; TEMP 36.3–37.2; O2SAT 97–100
--- NOTE | 2020-05-02 | ECHO_ITS ---
Patient Info Name: Laquita Howe Age: 30 years : 1990 Gender: Female Ht: 69 in Wt: 289 lbs BSA: 2.59 m2 HR: 84 bpm BP: 101 / 58 mmHg Heart Rhythm: Sinus Rhythm Technical Quality: Good Exam Date: 05/02/2020 1:25 PM Exam Location: [facility] Pulmonary Patient Status: Outpatient Admit Date: 05/01/2020 Staff Ordering Physician: Jaz Mckeon PA-C Panel Edge Painter: Chris Lang, JAVED, RT Attending Provider: Jaz Mckeon PA-C Referring Physician: Linda CR; Exam Type: CA echo doppler color flow Study Info Indications R55 - Syncope and collapse Strain analysis performed. Complete two-dimensional, color flow and Doppler transthoracic echocardiogram is performed. Summary 1. Complete two-dimensional, color flow and Doppler transthoracic echocardiogram is performed. 2. Normal left ventricular size with borderline concentric hypertrophy. There is good systolic function of all segments with a calculated ejection fraction 52%. Visually the ejection fraction appears to be 55-60%. Global longitudinal strain was mildly reduced at -15% suggesting early systolic dysfunction. No focal wall motion abnormalities. Normal diastolic function. 3. Borderline right ventricular enlargement with normal function. 4. Borderline left atrial enlargement. 5. Dilated inferior vena cava. 6. No significant valve disease. 7. Normal sinus rhythm. Left Ventricle Left ventricular chamber dimension is normal. Left ventricular systolic function is normal, estimated at 55-60%. There is no increased left ventricular wall thickness. Left ventricular septal wall motion is normal. The left ventricular diastolic function is normal. Global longitudinal strain is abnormal at 15 %. Right Ventricle Right ventricular chamber dimension is mildly enlarged. Right ventricular systolic function is normal. Left Atria Left atrial chamber dimension is normal. Right Atria Right atrial chamber dimension is normal. Aortic Valve The aortic valve is trileaflet. There is no aortic valve sclerosis. There is no aortic valve stenosis. There is no aortic valve regurgitation. Pulmonic Valve The pulmonic valve is normal. There is no pulmonic valve stenosis. There is no pulmonic regurgitation. Mitral Valve The mitral valve has normal leaflets. There is no mitral valve stenosis. There is trace mitral valve regurgitation. Tricuspid Valve The tricuspid valve leaflets are normal. There is no significant tricuspid valve stenosis. There is trace tricuspid valve regurgitation. No pulmonary hypertension, estimated pulmonary arterial systolic pressure is Empty. Pericardium/Pleural The pericardium appears normal. There is no pericardial effusion. Inferior Vena Cava Dilated inferior vena cava with >50% collapse upon inspiration consistent with Empty right atrial pressure, Empty. Aorta The aortic root size at the sinus of Valsalva is normal. The prox ascending aorta size is normal. Left Ventricular Outflow Tract Name Value Normal LVOT 2D LVOT Diameter 2.0 cm LVOT Doppler LVOT Peak Gradient
[2020-05-02] MEDS: MORPHINE SULFATE (*CRX) 4 MG/ML INJ IV PUSH ×5 (03:38→21:59)
[2020-05-02 06:35] LABS: Magnesium 1.3 mg/dL (1.6-2.3)
[2020-05-02 06:41] LABS: Basophils Percent Auto 0.4 % (0.2-1.2); Eosinophils Absolute Auto 0.1 K/mm3 (0-0.3); Eosinophils Percent Auto 1.2 % (0-4.4); Hematocrit 34.8 % (37.0-47.0); Hemoglobin 11.2 g/dL (12.0-15.0); Immature Granulocyte Absolute 0.02 K/mm3 (0.00-0.031); Immature Granulocyte Percent A 0.4 % (0-0.5); Lymphocytes Absolute Auto 0.82 K/mm3 (0.9-3.2); Lymphocytes Percent Auto 16.9 % (18.3-44.2); Mean Corpuscular HGB Conc 32.2 g/dl (32-36); Mean Corpuscular Hemoglobin 26.2 pg (26-34); Mean Corpuscular Volume 81.3 fl (80-100); Mean Platelet Volume 9.6 fl (7.4-10.4); Monocytes Absolute Auto 0.5 K/mm3 (0.1-0.6); Monocytes Percent Auto 10.1 % (2.6-8.5); Neutrophils Absolute Auto 3.5 K/mm3 (1.3-6.7); Platelet Count Result 196 k/mm3 (150-375); Red Blood Count 4.28 M/mm3 (4.2-5.4); Red Cell Distribution Width 14.6 % (11.5-14.5); White Blood Count 4.9 K/mm3 (4.5-10.0)
[2020-05-02 07:25] LABS: Thyroid Stimulating Hormone Reflex 0.464 uIU/mL (0.465-4.68)
[2020-05-02 07:49] LABS: Free T4 Free Thyroxine Reflex 0.78 ng/dL (0.78-2.19)
[2020-05-02 07:52] LABS: Alanine Aminotransferase 32 U/L (4-35); Albumin Level 3.6 g/dL (3.5-5.1); Alkaline Phosphatase 58 U/L (38-126); Anion Gap 6 mmol/L (8-16); Aspartate Amino Transferase 25 U/L (14-36); Bilirubin,Total 0.5 mg/dL (0.2-1.3); Blood Urea Nitrogen 13 mg/dL (7-17); Carbon Dioxide 27 mmol/L (22-30); Chloride 105 mmol/L (98-107); Estimated CRCL calculation 170 ml/min; Estimated Glomerular Filt Rate > 60; Glucose 107 mg/dL (65-105); Sodium 138 mmol/L (137-145)
[2020-05-02] MEDS: MAGNESIUM SULF 2 GM/WATER 50ML 2 GM/50 ML BAG IVPB (08:28)
[2020-05-02] MEDS: MULTIVIT/MIN/PREN/FOL AC/IRON TABLET 1 TAB PO (08:29)
[2020-05-02] MEDS: PANTOPRAZOLE SODIUM IV 40 MG VIAL IV PUSH (08:29)
[2020-05-02] MEDS: FAMOTIDINE 20 MG/2 ML VIAL IV PUSH (08:29)
[2020-05-02 09:09] LABS: Beta HCG Quantitative < 2.39 mIU/ML
[2020-05-02 09:10] LABS: Total Triiodothyronine (T3) 0.91 NG/ML (0.97-1.69)
[2020-05-02] MEDS: LACTATED RINGERS 1,000 ML 150 ML IV CONT (09:56)
--- NOTE | 2020-05-02 10:15 | WPDANESEPPF ---
Anes - Initial Pre Proc Eval Procedure: Operation Date: 05/02/20 13:30 Proposed Procedures p Esophagogastroduodenoscopy/Stent Removal - Kenneth Graves MD Date/Time: 05/02/20 10:15 Surgeon: Jaz Mckeon PA-C Pre Op Diagnosis: Syncope, abdominal pain Patient Data Age: 30 Gender: F Height: 5 ft 9 in Weight: 131.5 kg Last Vital Signs Temp 97.8 F 05/02/20 09:58 Pulse 82 05/02/20 09:58 Resp 22 H 05/02/20 09:58 BP 136/69 05/02/20 09:58 Pulse Ox 99 05/02/20 09:58 Allergies Allergy/AdvReac Type Severity Reaction Status Date / Time cocoa butter Allergy Mild Hives Verified 09/26/19 00:11 Home Medications Medication Instructions Recorded Confirmed Type PNV cmb#95-ferrous fumarate-FA 1 tablet PO DAILY #100 tablet 10/14/19 05/01/20 Rx [] ibuprofen 600 mg PO Q6H #90 tablet 10/14/19 05/01/20 Rx labetalol 200 mg PO BID 05/01/20 05/01/20 History Laboratory Tests 05/01/20 05/01/20 05/01/20 11:32 11:32 11:54 WBC 9.2 K/mm3 K/mm3 (4.5-10.0) RBC 5.10 M/mm3 M/mm3 (4.2-5.4) Hgb 13.4 g/dL D g/dL (12.0-15.0) Hct 41.6 % % (37.0-47.0) MCV 81.6 fl fl (80-100) MCH 26.3 pg pg (26-34) MCHC 32.2 g/dl g/dl (32-36) RDW 14.3 % % (11.5-14.5) Plt Count 242 k/mm3 k/mm3 (150-375) MPV 9.3 fl fl (7.4-10.4) Immature Gran % (Auto) 0.3 % % (0-0.5) Neut % (Auto) 82.5 % H % (45.5-73.1) Lymph % (Auto) 7.3 % L % (18.3-44.2) [place] % (Auto) 8.4 % % (2.6-8.5) Eos % (Auto) 1.1 % % (0-4.4) Baso % (Auto) 0.4 % % (0.2-1.2) Lymph # (Auto) 0.67 K/mm3 L K/mm3 (0.9-3.2) [place] # (Auto) 0.8 K/mm3 H K/mm3 (0.1-0.6) Eos # (Auto) 0.1 K/mm3 K/mm3 (0-0.3) Baso # (Auto) 0.0 K/mm3 K/mm3 (0.0-0.1) Abs Immat Gran (auto) 0.03 K/mm3 K/mm3 (0.00-0.031) Absolute Neuts (auto) 7.6 K/mm3 H K/mm3 (1.3-6.7) Absolute Nucleated RBC 0.0 K/mm3 K/mm3 (0.0-0.012) Nucleated RBC % 0.0 % % (0.0-0.2) PT INR APTT Puncture Site Right radial ABG pH 7.334 L (7.350-7.450) ABG pCO2 43.9 mmHg mmHg (35.0-45.0) ABG pO2 70.6 mmHg L mmHg (80.0-100.0) ABG PO2/FiO2 Ratio 3.36 % % ABG HCO3 22.8 mEq/l mEq/l (22.0-26.0) ABG O2 Saturation 93.1 % L % (95.0-100.0) ABG O2 Content 16.7 %vol %vol (16.0-22.0) ABG Base Excess -3.0 mEq/l mEq/l (+/-2.0) A-a Gradient 26.6 mmHg mmHg Oxyhemoglobin 92.4 % THb % THb (90.0-100.0) Carboxyhemoglobin 0.4 % THb % THb (0-2.0) Methemoglobin 0.3 %THb %THb (0-1.5) Reduced Hemoglobin 6.9 %THb H %THb (0-5.0) Total Hemoglobin 12.8 g/dL g/dL (12.0-18.0) O2 Delivery Device Room air O2 Liters/Min Not Reportable FiO2 21 % % Sodium 139 mmol/L mmol/L (137-145) Potassium 4.9 mmol/L mmol/L (3.4-5.0) Chloride 104 mmol/L mmol/L (98-107) Carbon Dioxide 28 mmol/L mmol/L (22-30) Anion Gap 7 mmol/L L mmol/L (8-16) BUN 15 mg/dL D mg/dL (7-17) Creatinine 0.70 mg/dL mg/dL (0.7-1.0) Estim Creat Clear Calc 148 ml/min ml/min Estimated GFR > 60 (59 - ) Glucose 126 mg/dL H mg/dL (65-105) Lactic Acid Calcium 9.6 mg/dL mg/dL (8.4-10.2) Magnesium Total Bilirubin 0.3 mg/dL mg/dL (0.2-1.3) AST 39 U/L H U/L (14-36) ALT 46 U/L H U/L (4-35) Alkaline Phosphatase 68 U/L U/L (38-126) Troponin I NT-Pro-B Natriuret Pep Total Protein 8.0 g/dL g/dL (6.3-8.2) Albumin 4.6 g/dL g/dL (3.5-5.1)
--- NOTE | 2020-05-02 10:22 | WPDGICN ---
Assessment and Plan Assessment and plan (1) Nausea & vomiting: Qualifiers: Vomiting Intractability: non-intractable Vomiting type: unspecified Qualified Code(s): R11.2 - Nausea with vomiting, unspecified Code(s): R11.2 - Nausea with vomiting, unspecified Status: Acute Assessment and Plan: CT scan unremarkable, no signs of gib will proceed with EGD and biopsies, assess if esophagitis, ulcers, celiac disease, etc also noted that she uses marijuana and wonder if affecting her symptoms (2) Near syncope: Code(s): R55 - Syncope and collapse Status: Acute Assessment and Plan: ? vasovagal carotid doppler normal per primary team (3) Upper abdominal pain: Code(s): R10.10 - Upper abdominal pain, unspecified Status: Acute Assessment and Plan: assess with egd supportive care more recommendations after egd (4) Morbid obesity: Code(s): E66.01 - Morbid (severe) obesity due to excess calories Status: Acute Assessment and Plan: diet (5) Nodule of lower lobe of left lung: Code(s): R91.1 - Solitary pulmonary nodule Status: Acute Assessment and Plan: CXR was normal GI Consult Note Consult date/time: 05/02/20 10:22 Reason for consult: epigastric pain, nausea and vomiting HPI: Laquita Howe is a 30 year old female with history of hypertension on labetalol, cholecystectomy. She is here with new onset of upper abdominal pain, nausea, and vomiting, pain describes as sharp and shooting periumbilical abdominal pain started night before admission improved after going to sleep but more severe during the morning of admission with intractable nausea and vomiting, she was lightheaded and feeling like passing out several times. She was slightly hypotensive in the ER but improved after IV fluid. She does take ibuprofen but only as needed, also smokes marijuana only if she has migraines. CT scan a/p reviewed, 9 mm nonspecific left lower lobe pulmonary nodule, diffuse hepatic steatosis, retroflexed uterus. Never had EGD. She is also taking vitamins (she is ) Review of Systems Constitutional: Constitutional: Denies headache(s) and Denies weakness Eyes: Eyes: Denies blurry vision ENT: Reports Normal hearing present, Denies headache(s) and Denies neck pain Cardiovascular: Cardiovascular: Denies chest pain and Denies dyspnea Respiratory: Respiratory: Denies dyspnea Gastrointestinal: Gastrointestinal: Reports no additional gastrointestinal complaints Genitourinary: Genitourinary: Denies dysuria Musculoskeletal: Musculoskeletal: Denies neck pain Integumentary/Breasts: Skin/Breast: Denies dry skin Neurologic: Reports Normal hearing present, Denies headache(s) and Denies weakness Psychiatric: Psychiatric: Denies anxiety Endocrine: Endocrine: Denies change in body appearance Hematologic/Lymphatic: Hematologic/Lymphatic: Denies easy bleeding Allergic/Immunologic: Allergic/Immunologic: Denies urticaria PMFSH Past Medical History Medical History (Updated 05/02/20 @ 10:49 by Kenneth Graves MD) Anxiety Chronic hypertension Compound heterozygous MTHFR mutation [id number] Depression Gastroesophageal reflux disease Hepatic steatosis History of pre-eclampsia Human papilloma virus infection Morbid obesity Nephrolithiasis Upper abdominal pain Surgical History Surgical History (Updated 05/01/20 @ 22:21 by Kristin Kapadia PA-C) History of cholecystectomy History of lithotripsy History of tonsillectomy Family History Family History Father Kidney failure Arthritis Thyroid cancer Mother Tachycardia Thyroid cancer Grandparent Cerebrovascular accident Hypertension Kidney failure Thyroid cancer Heart disease Depression Son Asthma ADD (attention deficit disorder) Depression Social History Social History (
[2020-05-02] MEDS: SODIUM CHLORIDE 0.9% IV 1,000 ML 125 ML IV CONT ×2 (12:26→20:30)
[2020-05-02] MEDS: ONDANSETRON INJ 4 MG/2 ML VIAL IV PUSH (13:43)
--- NOTE | 2020-05-02 14:22 | PM.IMPN ---
Progress Note: A&P Assessment and Plan (1) Abdominal pain: Qualifiers: Abdominal location: generalized Qualified Code(s): R10.84 - Generalized abdominal pain Code(s): R10.9 - Unspecified abdominal pain Status: Acute Assessment and Plan: Patient reports upper abdominal pain in a band-like fashion across the upper abdomen which is burning, aching and pulling . The pain is improving. She is status post cholecystectomy many years ago. No acute findings on imaging. EGD was unremarkable and biopsies were obtained to r/o celiac sprue. She does feel that pain is improving. Continue pepcid BID Serial abdominal exams. GI consulted with input appreciated. Continue supportive care with analgesics as needed and monitor (2) Near syncope: Code(s): R55 - Syncope and collapse Status: Acute Assessment and Plan: Possible vasovagal response. Reportedly she had several syncopal episodes in route to the emergency department. Telemetry reviewed from 05/02/20 demonstrates sinus rhythm. She is not orthostatic. Carotid doppler US demonstrated no carotid stenosis bilaterally. Continue fall precautions (seems she had a vagal response to the ED with a decrease in blood pressure). Continue telemetry monitoring Continue IV fluids Echocardiogram performed with results pending (3) Nausea & vomiting: Qualifiers: Vomiting Intractability: non-intractable Vomiting type: unspecified Qualified Code(s): R11.2 - Nausea with vomiting, unspecified Code(s): R11.2 - Nausea with vomiting, unspecified Status: Acute Assessment and Plan: Supportive care to include antiemetics and IV fluid rehydration as needed. (4) Hepatic steatosis: Code(s): K76.0 - Fatty (change of) liver, not elsewhere classified Status: Inactive Assessment and Plan: Diffuse hepatic steatosis noted on CT today. Likely the etiology of mildly elevated LFTs. Hepatitis panel demonstrates reactive Hepatitis C Ab screen with HCV RNA pending. She has been told she had positive Hepatitis C Ab screen in the past but PCR was negative. She did see GI regarding this in the past. Await repeat labs. Will order abdominal US (5) Nodule of lower lobe of left lung: Code(s): R91.1 - Solitary pulmonary nodule Status: Acute Assessment and Plan: Nonspecific 9 mm left lower lobe nodule noted incidentally on CT today. Differential diagnosis includes pulmonary granuloma, hamartoma, and less likely pulmonary malignancy. Follow-up with PCP outpatient Subjective Date/time seen: 05/02/20 14:22 Ms. Howe is a 30 y.o. female with PMH significant for hypertension who is seen in follow-up for abdominal pain, nausea, vomiting, and near syncope. She is doing okay today and feeling a bit better. She was able her lunch and has not had any vomiting. She still has some upper abdominal pain, band-like across the upper abdomen with aching/pulling quality, burning, but this is better today. She is not having any vaginal discharge or vaginal bleeding. She has no pelvic pain or lower abdominal pain. She still has nausea but zofran is helping. She is not having any diarrhea or constipation and bowels are regular. She has no chest pain or pressure. She has no shortness of breath. She notes she still has some lightheadedness with standing. Review of Systems Review of Systems: All systems reviewed & are unremarkable except as noted in HPI and below Exam Narrative: Exam Narrative: General: Very pleasant, well-developed, and morbidly obese 30 y.o. female lying supine in bed in no acute distress. HEENMT: Normocephalic and atraumatic. Sclerae anicteric. EOMI. Oral mucosa moist. Neck: Supple. Cardiac: Regular rate and rhythm. S1 and S2 normal. Telemetry reviewed from 05/02 with sinus rhythm. Lungs: Lungs are clear to auscultation bilaterally. Abdomen: Positive bowel sounds throughout. Abd
[2020-05-02] MEDS: ENOXAPARIN 40 MG/0.4 ML SYRINGE SUB-Q (20:29)
[2020-05-02] MEDS: FAMOTIDINE 20 MG TABLET PO (20:30)
[2020-05-03] VITALS (7 sets, daily range): BP systolic 134–151; BP diastolic 80–88; PULSE 86–97; RESP 18–20; TEMP 36.1–36.2; O2SAT 94–98
[2020-05-03] MEDS: MORPHINE SULFATE (*CRX) 4 MG/ML INJ IV PUSH ×2 (03:13→08:59)
--- NOTE | 2020-05-03 03:18 | PC.NURSE ---
Rosario RN giving morphine 4mg IVP. Morphine bottle put in sharps prior to scanning medication. Medication barcode was not scanned, had to put in manually. This RN witnessed.
[2020-05-03] MEDS: SODIUM CHLORIDE 0.9% IV 1,000 ML 125 ML IV CONT (05:39)
[2020-05-03 06:23] LABS: Basophils Percent Auto 0.5 % (0.2-1.2); Eosinophils Absolute Auto 0.1 K/mm3 (0-0.3); Eosinophils Percent Auto 2.2 % (0-4.4); Hematocrit 33.2 % (37.0-47.0); Hemoglobin 10.6 g/dL (12.0-15.0); Immature Granulocyte Absolute 0.02 K/mm3 (0.00-0.031); Immature Granulocyte Percent A 0.3 % (0-0.5); Lymphocytes Absolute Auto 1.65 K/mm3 (0.9-3.2); Lymphocytes Percent Auto 27.9 % (18.3-44.2); Mean Corpuscular HGB Conc 31.9 g/dl (32-36); Mean Corpuscular Hemoglobin 26.4 pg (26-34); Mean Corpuscular Volume 82.8 fl (80-100); Mean Platelet Volume 9.4 fl (7.4-10.4); Monocytes Absolute Auto 0.7 K/mm3 (0.1-0.6); Monocytes Percent Auto 11.8 % (2.6-8.5); Neutrophils Absolute Auto 3.4 K/mm3 (1.3-6.7); Neutrophils Percent Auto 57.3 % (45.5-73.1); Platelet Count Result 187 k/mm3 (150-375); Red Blood Count 4.01 M/mm3 (4.2-5.4); Red Cell Distribution Width 14.5 % (11.5-14.5); White Blood Count 5.9 K/mm3 (4.5-10.0)
[2020-05-03 06:36] LABS: Alanine Aminotransferase 47 U/L (4-35); Albumin Level 3.7 g/dL (3.5-5.1); Alkaline Phosphatase 66 U/L (38-126); Anion Gap 5 mmol/L (8-16); Aspartate Amino Transferase 41 U/L (14-36); Bilirubin,Total 0.3 mg/dL (0.2-1.3); Blood Urea Nitrogen 10 mg/dL (7-17); Calcium 8.2 mg/dL (8.4-10.2); Carbon Dioxide 29 mmol/L (22-30); Chloride 106 mmol/L (98-107); Estimated CRCL calculation 170 ml/min; Estimated Glomerular Filt Rate > 60; Glucose 107 mg/dL (65-105); Lipase 62 U/L (23-300); Magnesium 1.7 mg/dL (1.6-2.3); Sodium 140 mmol/L (137-145)
--- NOTE | 2020-05-03 08:05 | PC.NURSE ---
patient to ultrasound per w/c
[2020-05-03] MEDS: FAMOTIDINE 20 MG TABLET PO (09:03)
[2020-05-03] MEDS: MULTIVIT/MIN/PREN/FOL AC/IRON TABLET 1 TAB PO (09:03)
--- NOTE | 2020-05-03 09:15 | WPDANESPN ---
Anes - Prog Note Post-Op Date/Time: 05/03/20 09:15 Cardiovascular status: normal Respiratory status: normal Airway patency: baseline Mental status: baseline Post-Op hydration status: normal Vital Signs: Last Vital Signs Temp 96.9 F L 05/03/20 08:00 Pulse 97 05/03/20 08:13 Resp 20 05/03/20 08:13 BP 143/88 H 05/03/20 08:13 Pulse Ox 98 05/03/20 08:13 Pain Score (VAS): 02/18 I/O: Intake & Output 05/02/20 05/03/20 05/03/20 23:59 07:59 15:59 Intake Total 1730 1450 Output Total 800 Balance 1730 650 Laboratory Tests 05/03/20 05:49 05/03/20 05:49 05/03/20 05/03/20 05:49 05:49 WBC 5.9 RBC 4.01 L Hgb 10.6 L Hct 33.2 L MCV 82.8 MCH 26.4 MCHC 31.9 L RDW 14.5 Plt Count 187 MPV 9.4 Immature Gran % (Auto) 0.3 Neut % (Auto) 57.3 Lymph % (Auto) 27.9 Labette % (Auto) 11.8 H Eos % (Auto) 2.2 Baso % (Auto) 0.5 Lymph # (Auto) 1.65 Labette # (Auto) 0.7 H Eos # (Auto) 0.1 Baso # (Auto) 0.0 Abs Immat Gran (auto) 0.02 Absolute Neuts (auto) 3.4 Absolute Nucleated RBC 0.0 Nucleated RBC % 0.0 Sodium 140 Potassium 4.0 Chloride 106 Carbon Dioxide 29 Anion Gap 5 L BUN 10 Creatinine 0.60 L Estim Creat Clear Calc 170 Estimated GFR > 60 Glucose 107 H Calcium 8.2 L Magnesium 1.7 Total Bilirubin 0.3 AST 41 H ALT 47 H Alkaline Phosphatase 66 Total Protein 7.0 Albumin 3.7 Lipase 62 Patient Feedback: Patient satisfied with anesthetic care.
--- NOTE | 2020-05-03 10:17 | WPDGIPROGNO ---
Progress Note: A&P Assessment and Plan (1) Upper abdominal pain: Code(s): R10.10 - Upper abdominal pain, unspecified Status: Acute Assessment and Plan: improved, ultrasound reviewed and showed fatty liver she can go home by GI standpoint (2) Nausea & vomiting: Qualifiers: Vomiting Intractability: non-intractable Vomiting type: unspecified Qualified Code(s): R11.2 - Nausea with vomiting, unspecified Code(s): R11.2 - Nausea with vomiting, unspecified Status: Acute Assessment and Plan: better, EGD was unremarkable (pending biopsies) I wonder if could be also due to marijuana use- quit if possible (3) Near syncope: Code(s): R55 - Syncope and collapse Status: Acute Assessment and Plan: work up by primary ? vasovagal (4) Morbid obesity: Code(s): E66.01 - Morbid (severe) obesity due to excess calories Status: Acute Assessment and Plan: diet (5) Hepatic steatosis: Code(s): K76.0 - Fatty (change of) liver, not elsewhere classified Status: Acute Assessment and Plan: with mild elevated liver enzymes, main risk factor is obesity I can see her in office with repeat labs (6) Marijuana use: Code(s): F12.90 - Cannabis use, unspecified, uncomplicated Status: Acute Subjective Date/time seen: 05/03/20 10:17 Interval history: no more nausea, still some upper abdominal discomfort. Review of Systems Review of Systems: All systems reviewed & are unremarkable except as noted in HPI and below Exam Const: General: comfortable and no acute distress Nutritional Appearance: obese HENMT: General nose exam: Normal nares present Eyes: General: appearance normal, both eyes and all related structures Neck: Neck: no JVD Resp: Auscultation: clear to auscultation bilaterally Cardio: Rate: regular rate Rhythm: regular rhythm GI: Inspection: non-distended GI Palp: Yes Soft to palpation Skin: General skin exam: normal color Neuro: General: gait normal Speech: normal speech Extrem: General: normal to inspection Psych: Mental Status: mental status grossly normal Objective Data Vital Signs Vital Signs: Vital Signs - 24 hr 05/02/20 11:06 05/02/20 11:16 05/02/20 11:26 Temperature Pulse Rate 92 81 81 Respiratory Rate 19 18 20 Blood Pressure 151/88 H 142/86 H 132/67 Pulse Oximetry 99 99 97 05/02/20 12:00 05/02/20 14:00 05/02/20 14:05 Temperature 98.9 F Pulse Rate 89 86 90 Respiratory Rate 18 Blood Pressure 137/78 151/86 H Pulse Oximetry 98 100 05/02/20 14:10 05/02/20 16:00 05/02/20 16:26 Temperature Pulse Rate 100 88 Respiratory Rate Blood Pressure 157/91 H Pulse Oximetry 100 97 05/02/20 20:00 05/02/20 20:05 05/02/20 20:10 Temperature Pulse Rate 87 89 102 H Respiratory Rate Blood Pressure 141/91 H 154/88 H 159/90 H Pulse Oximetry 05/02/20 21:34 05/03/20 04:00 05/03/20 05:53 Temperature 97.3 F L 97.2 F L Pulse Rate 93 90 91 Respiratory Rate 18 18 Blood Pressure 141/91 H 151/80 H Pulse Oximetry 98 94 05/03/20 08:00 05/03/20 08:12 05/03/20 08:13 Temperature 96.9 F L Pulse Rate 90 88 97 Respiratory Rate 18 18 20 Blood Pressure 134/82 139/81 143/88 H Pulse Oximetry 95 96 98 Intake/Output Intake/Output: Intake & Output 04/30/20 05/01/20 05/02/20 05/03/20 23:59 23:59 23:59 23:59 Intake Total 3100 3870 1450 Output Total 500 800 Balance 3100 3370 650 Meds/Results Medications: Active Medications Generic Name Dose Route Start Last Admin Trade Name Juancarlos PRN Reason Stop Dose Admin Acetaminophen 650 mg 05/03/20 09:11 Acetaminophen 325 Mg Tablet PO Q4H PRN Mild Pain (1-3) or Fever Dicyclomine HCl 20 mg 05/03/20 13:00 Dicyclomine Hcl 10 Mg Capsule PO QID SAROJ Enoxaparin Sodium 40 mg 05/02/20 21:00 05/02/20 20:29 Enoxaparin 40 Mg/0.4 Ml Syringe SUB-Q 40 mg HS SAROJ Administration
[2020-05-03] MEDS: LABETALOL HCL 100 MG TABLET 200 MG PO (10:22)
--- NOTE | 2020-05-03 10:43 | PM.CNCAR ---
Assessment and Plan Assessment and plan (1) Near syncope: Code(s): R55 - Syncope and collapse Status: Acute Assessment and Plan: 30-year-old woman with history of TIA (at age 20, when under intense stress), hypertension, morbid obesity, hepatic steatosis, GERD, depression, anxiety, who is seen in cardiac consultation for a chief complaint of syncope. - her syncope is likely vasovagal in the setting of her presenting abdominal pain, nausea, and recurrent vomiting. - She was not orthostatic on presentation. - Telemetry demonstrates normal sinus rhythm. - magnesium was initially low at 1.3 then improved to 1.7, in the setting of her nausea and vomiting. - ECHO demonstrated normal left ventricular systolic function. - Carotid ultrasound with no significant disease. - troponin I was negative for injury. - she needs repeat TSH with reflex free T4 in 1 month given low normal free T4 and abnormal TSH this admission. - recommend outpatient stress echo testing pending resolution of her presenting abdominal complaints. (2) Abdominal pain: Qualifiers: Abdominal location: generalized Qualified Code(s): R10.84 - Generalized abdominal pain Code(s): R10.9 - Unspecified abdominal pain Status: Acute Assessment and Plan: - improving. - Management as per GI and primary services. (3) Morbid obesity: Code(s): E66.01 - Morbid (severe) obesity due to excess calories Status: Acute Assessment and Plan: - 20 lb weight loss needed in the coming months. (4) Right ventricular enlargement: Code(s): I51.7 - Cardiomegaly Status: Acute Assessment and Plan: - She had borderline enlargement of the right ventricle on echo this admission and has morbid obesity. - she reports fatigue and occasional morning headaches and a sense of poor sleep, although she denies daytime somnolence or snoring. - Recommend outpatient sleep study to evaluate for possible obstructive sleep apnea. - This admission, she had echocardiogram 05/02/2020: Normal left ventricular size with borderline concentric left ventricular hypertrophy, good systolic function in all segments with left ventricular ejection fraction calculated at 52%, borderline right ventricular enlargement with normal right ventricular systolic function, borderline left atrial enlargement, dilated inferior vena cava, no significant valvular disease, normal sinus rhythm. (5) Chronic hypertension: Code(s): I10 - Essential (primary) hypertension Status: Acute Assessment and Plan: - blood pressure mildly elevated this admission when off her outpatient labetalol. - Resumed labetalol. History of Present Illness History of Present Illness Consult date/time: 05/03/20 10:43 30-year-old woman with history of TIA (at age 20, when under intense stress), hypertension, morbid obesity, hepatic steatosis, GERD, depression, anxiety, who is seen in cardiac consultation for a chief complaint of syncope. Patient presented to the emergency department for evaluation of abdominal pain, nausea, and vomiting. She reported sharp periumbilical abdominal pain on the prior night which recurred in the morning of the day of presentation with associated nausea and numerous episodes of nonbloody emesis. She reported feeling weak and passed out several times in the car on the way to the hospital in the setting recurrent vomiting. In the emergency department, she had a near syncopal episode in which she became pale, weak, and nearly unresponsive. She was not orthostatic on presentation. Her blood pressure was 97/64 but improved with intravenous hydration. She denied chest pain or dyspnea. Patient reported upper abdominal pain in a bandlike fashion across after abdomen which was a burning, aching, and pulling period her pain has subsequently improved. She reports seeing a pearl hand approximately 10 years ago and reports that a stress test approximately 10 year
--- NOTE | 2020-05-03 13:18 | PM.DS ---
DS: Admitting Diagnosis Admitting Diagnosis Admitting Diagnosis: Abdominal pain, nausea, vomiting, near-syncope DS: Discharge Diagnosis Discharge Diagnosis (1) Abdominal pain: Qualifiers: Abdominal location: generalized Qualified Code(s): R10.84 - Generalized abdominal pain Code(s): R10.9 - Unspecified abdominal pain Status: Acute Assessment and Plan: Discharge Summary (Date of service 05/03/20): Ms. Howe is a 30 y.o. female with PMH significant for TIA while under remarkable stress, GERD, hypertension, anxiety, heterozygous MTFR mutation, depression, marijuana use, morbid obesity who presented to the emergency department on 05/01/20 for the evaluation of abdominal pain, nausea, and vomiting. She reported that she developed some sharp, shooting, aching pains in a band-like fashion across the upper abdomen which was self limiting the night prior. The following morning, she developed severe pain with nausea and emesis. She reported feeling weak after vomiting with near syncope in the car on the way to the hospital. Vitals were notable for low blood pressure of 97/64 in the ER which improved with fluids. Vitals were otherwise stable. Labs were notable for very mild transaminitis with AST 39 and ALT 46. Lipase 65 and troponin <0.012. Urinalysis appeared contaminated with many squamous cells. Lactic acid 1.4. TSH 0.983. Bedside UCG negative. CT chest/abdomen/pelvis demonstrated retroflexed uterus, 9mm left lower lobe nodule and diffuse hepatic steatosis. CXR was unremarkable. She was treated with IV analgesics, IV antiemetics, and IV fluids and admitted to the hospitalist service with GI consult. She underwent EGD which was unremarkable with biopsies obtained to r/o celiac sprue which are pending. Her pain improved significantly and she was tolerating a regular diet. Abdominal US was notable for hepatosplenomegaly, possibly secondary to CAPPS, and she needs to loose weight. She will also continue follow-up with GI with any further workup outpatient as indicated from a GI standpoint. She felt much better and requested discharge as she was no longer having any nausea, vomiting, and abdominal pain significantly improved. She was advised to pump and dump for 24 hours after receiving morphine and anesthesia and verbalized understanding. Worrisome signs and symptoms which would warrant return to the ED were discussed. She was discharged in hemodynamically stable condition on the afternoon on 05/03/20. Please see additional diagnoses for further information. (2) Near syncope: Code(s): R55 - Syncope and collapse Status: Acute Assessment and Plan: Likely secondary to vasovagal response. She was treated with IV fluids. Orthostatic blood pressure was negative for orthostatic hypotension. She was monitored on telemetry which demonstrated sinus rhythm. Carotid doppler US demonstrated no carotid stenosis bilaterally. Echocardiogram was performed and demonstrated calculated EF if 52% and visually estimated EF 55-60% with possible early systolic dysfunction with normal diastolic function, borderline RV enlargement with normal function, borderline left atrial enlargement, dilated IVC, and no significant valve disease. Cardiology was consulted given borderline/early LV systolic dysfunction and recommended outpatient cardiology follow-up in 1 week and outpatient stress echo testing. (3) Nausea & vomiting: Qualifiers: Vomiting Intractability: non-intractable Vomiting type: unspecified Qualified Code(s): R11.2 - Nausea with vomiting, unspecified Code(s): R11.2 - Nausea with vomiting, unspecified Status: Resolved Assessment and Plan: Resolved. She was treated with supportive care. (4) Hepatic steatosis: Code(s): K76.0 - Fatty (change of) liver, not elsewhere classified Status: Acute Assessment and Plan: Diffuse hepatic steatosis noted on CT and is likely the etiology of mil
[2020-05-03 15:49] LABS: Hepatitis C RNA, Quant PCR <15 IU/mL
== END 2020-05-03 14:16 | disposition home or self-care (01) ==
LOC: ANHED 13:32 → ANH3MEDSUR 14:11
PROVIDERS: Emergency Medicine; Internal Medicine Gastroenterology; Physician Assistant; Admitting Provider Family Medicine; Emergency Provider Emergency Medicine; Visit Provider Family Medicine
PROC: 0DP08DZ Removal of Intraluminal Device from Upper Intestinal Tract, Via Natural or Artificial Opening Endoscopic (ICD-10-PCS; CPT 43247; principal; 2020-05-02 13:30)
DX: K29.80 Duodenitis without bleeding (principal); R10.11 Right upper quadrant pain; R55 Syncope and collapse; K76.0 Fatty (change of) liver, not elsewhere classified; K21.9 Gastro-esophageal reflux disease without esophagitis; E66.01 Morbid (severe) obesity due to excess calories; I10 Essential (primary) hypertension; R16.2 Hepatomegaly with splenomegaly, not elsewhere classified; R91.1 Solitary pulmonary nodule; Z86.73 Personal history of transient ischemic attack (TIA), and cerebral infarction without residual deficits; Z68.41 Body mass index [BMI] 40.0-44.9, adult
CPT/HCPCS: 43239; 36415; 36600; 71045; 71260; 74177; 76700; 80053; 80074; 81001; 81025; 82375; 82805; 83050; 83605; 83690; 83735; 83880; 84439; 84443; 84480; 84484; 84702; 85025; 85610; 85730; 87522; 88305; 93005; 93306; 93880; 96361; 96374; 96375; 96376; 99285; A9270; C9113; G0378; G0379; J1650; J2001; J2270; J2405; J2704; J3475; J7030; J7120; Q9967

== ENCOUNTER 2020-09-10 19:21 | Emergency (ER) | payer OTHER, SELFPAY ==
[2020-09-10] VITALS (11 sets, daily range): BP systolic 134–163; BP diastolic 72–99; PULSE 81–94; RESP 18–20; TEMP 37; O2SAT 97–100
--- NOTE | ~2020-09-10 | CT_ITS ---
EXAMINATION: CT abdomen pelvis w con DATE: 09/10/2020 23:59 INDICATION: Left lower quadrant abdominal pain. TECHNIQUE: Computed tomography (CT) of the abdomen and pelvis was performed with 100 mL Omnipaque 350 intravenous contrast. Automated exposure control and iterative reconstruction technique were employe d. The dose-length product was 605.33 mGy-cm. COMPARISON: CT abdomen and pelvis 05/01/2020 FINDINGS: The visualized portions of the lung bases demonstrate minimal atelectasis on the right. The re is a stable 6 mm nodule in left lower lobe, likely benign. No pleural effusion. The heart size is normal. No pericardial effusion. The liver and spleen are normal. There are changes of cholecystectom y. The pancreas, adrenal glands, and kidneys are normal. There are no dilated loops of bowel. The feliberto endix is normal. There are no pathologically enlarged lymph nodes. There is no free intraperitoneal f luid. There is mild thoracolumbar spondylosis. IMPRESSION: 1. No etiology for the patient's symptoms. Reviewed, dictated and finalized at location A.
[2020-09-10 19:49] LABS: Basophils Absolute Auto 0.1 K/mm3 (0.0-0.1); Basophils Percent Auto 0.7 % (0.2-1.2); Eosinophils Absolute Auto 0.1 K/mm3 (0-0.3); Eosinophils Percent Auto 1.9 % (0-4.4); Hematocrit 37.8 % (37.0-47.0); Hemoglobin 11.9 g/dL (12.0-15.0); Immature Granulocyte Absolute 0.01 K/mm3 (0.00-0.031); Immature Granulocyte Percent A 0.1 % (0-0.5); Lymphocytes Absolute Auto 2.01 K/mm3 (0.9-3.2); Lymphocytes Percent Auto 29.3 % (18.3-44.2); Mean Corpuscular HGB Conc 31.5 g/dl (32-36); Mean Corpuscular Hemoglobin 25.4 pg (26-34); Mean Corpuscular Volume 80.6 fl (80-100); Mean Platelet Volume 9.1 fl (7.4-10.4); Monocytes Absolute Auto 0.5 K/mm3 (0.1-0.6); Monocytes Percent Auto 7.6 % (2.6-8.5); Neutrophils Absolute Auto 4.1 K/mm3 (1.3-6.7); Neutrophils Percent Auto 60.4 % (45.5-73.1); Platelet Count Result 255 k/mm3 (150-375); Red Blood Count 4.69 M/mm3 (4.2-5.4); Red Cell Distribution Width 14.6 % (11.5-14.5); White Blood Count 6.9 K/mm3 (4.5-10.0)
[2020-09-10 19:59] LABS: Prothrombin Time 13.4 Seconds (11.1-14.7)
[2020-09-10 20:00] LABS: Partial Thromboplastin Time 32.8 SECONDS (22.3-36.8)
[2020-09-10 20:03] LABS: Alanine Aminotransferase 24 U/L (4-35); Albumin Level 4.4 g/dL (3.5-5.1); Alkaline Phosphatase 75 U/L (38-126); Anion Gap 9 mmol/L (8-16); Aspartate Amino Transferase 25 U/L (14-36); Bilirubin,Total < 0.1 mg/dL (0.2-1.3); Blood Urea Nitrogen 15 mg/dL (7-17); Calcium 9.5 mg/dL (8.4-10.2); Carbon Dioxide 26 mmol/L (22-30); Chloride 105 mmol/L (98-107); Estimated CRCL calculation 161 ml/min; Estimated Glomerular Filt Rate > 60; Glucose 113 mg/dL (65-110); Potassium 4.1 mmol/L (3.4-5.0); Sodium 140 mmol/L (137-145)
--- NOTE | 2020-09-10 23:18 | PC.NURSE ---
pt reports she thought she started her period but had onset of bright red blood from rectum today. also c/o llq pain. appears anxious.
[2020-09-10] MEDS: SODIUM CHLORIDE 0.9% IV 1,000 ML 999 ML IV CONT (23:27)
[2020-09-10] MEDS: ONDANSETRON INJ 4 MG/2 ML VIAL IV PUSH (23:28)
[2020-09-10] MEDS: MORPHINE SULFATE (*CRX) 4 MG/ML INJ IV PUSH (23:29)
[2020-09-11 00:18] VITALS: BP 147/89; PULSE 88; RESP 18; O2SAT 99
--- NOTE | 2020-09-11 00:25 | ED.GENADULT ---
HPI - General Adult General Chief complaint: GI Bleed Stated complaint: HEMATURIA/ BLOOD IN STOOL Time Seen by Provider: 09/10/20 22:39 History of Present Illness HPI narrative: Patient 30-year-old female presents the emergency department with chief complaint of rectal bleeding. Patient reports that this evening she had little bit of loose stool and cramping in her abdomen and then noticed that she had blood filled the toilet. Patient states that she had some blood-streaked stool with this as well in the stool was soft but slightly for. Patient denies diarrhea reports that she has had some nausea with it but no vomiting patient reports that she has had problems with hemorrhoids before in the past. Related Data Home Medications Medication Instructions Recorded Confirmed labetalol 200 mg PO BID 05/01/20 05/01/20 Allergies Allergy/AdvReac Type Severity Reaction Status Date / Time cocoa butter Allergy Mild Hives Verified 09/26/19 00:11 Review of Systems Review of Systems: A 10 system review of systems was completed on the patient and is negative except for what is stated in the HPI. Nursing and ancillary documentation was reviewed. [facility] Past Medical History Medical History Anxiety Chronic hypertension Compound heterozygous MTHFR mutation [id number] Depression Gastroesophageal reflux disease Hepatic steatosis History of pre-eclampsia Human papilloma virus infection Marijuana use Morbid obesity Nephrolithiasis Upper abdominal pain Surgical History Surgical History History of cholecystectomy History of lithotripsy History of tonsillectomy Family History Family History Father Kidney failure Arthritis Thyroid cancer Heart disease Father had a hole in his heart. Mother Tachycardia Thyroid cancer Grandparent Cerebrovascular accident Hypertension Kidney failure Thyroid cancer Heart disease Depression Son Asthma ADD (attention deficit disorder) Depression Social History Social History Social History: Surrogate decision maker: Chris Matias, . Code status: Full code. Smoking status: Never smoker Alcohol intake: never Substance use: current Substance use type: marijuana Additional living arrangements comments: Lives in [place] with her and 3 children. 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 Gender identity (if verbalized by the patient): Female Spiritual care concerns: No Agree to blood products: Yes Exam Narrative: GENERAL: Well-appearing, well-nourished, and in no acute distress. HEAD: Normocephalic, atraumatic. EYES: PERRLA and EOMI. ENT: Nares clear, no rhinorrhea or epistaxis. Mucous membranes moist. NECK: Supple. CHEST: Clear to auscultation. No respiratory distress. HEART: Regular rate and rhythm. No murmur heard. Normal peripheral pulses. ABDOMEN: Soft, mild tenderness to palpation in the left lower quadrant, nondistended, normal active bowel sounds. : Rectal exam is guaiac negative EXTREMITIES: Normal range of motion. No edema. SKIN: Warm, dry, no rash. NEURO: No focal deficits. Alert and oriented x3. PSYCH: Normal mood and affect. Course Course Emergency Course: CT scan of the abdomen pelvis showed no evidence of acute abnormality Vital Signs Vital signs: Vital Signs Temperature 37.0 C 09/10/20 19:28 Pulse Rate 94 09/10/20 19:28 Respiratory Rate 20 09/10/20 19:28 Blood Pressure 147/91 H 09/10/20 19:28 Pulse Oximetry 100 09/10/20 19:28 Temperature 37.0 C 09/10/20 19:28 Pulse Rate 81 09/10/20 23:17 Respiratory Rate 18 09/10/20 23:17 Blood Pressure 134/72
[2020-09-11 00:48] VITALS: TEMP 36.6
== END 2020-09-11 00:49 | disposition home or self-care (01) ==
PROVIDERS: Emergency Medicine; Emergency Provider Emergency Medicine
DX: K62.5 Hemorrhage of anus and rectum (principal); R10.84 Generalized abdominal pain; I10 Essential (primary) hypertension; E72.12 Methylenetetrahydrofolate reductase deficiency; K21.9 Gastro-esophageal reflux disease without esophagitis; E66.01 Morbid (severe) obesity due to excess calories; Z68.41 Body mass index [BMI] 40.0-44.9, adult; Z87.442 Personal history of urinary calculi
CPT/HCPCS: 36415; 74177; 80053; 81025; 85025; 85610; 85730; 86850; 86900; 86901; 96361; 96374; 96375; 99284; J2270; J2405; J7030; Q9967

== ENCOUNTER 2021-07-28 19:13 | Emergency (ER) | payer OTHER, SELFPAY ==
[2021-07-28 19:15] VITALS: BP 169/91; PULSE 85; RESP 16; TEMP 36.4; O2SAT 100
--- NOTE | 2021-07-28 19:32 | ED.ABDPAIN ---
HPI - Abdominal Pain General Chief Complaint: Abdominal Pain Stated Complaint: HTN, abd pain, chest tightness, + home preg test Time Seen by Provider: 07/28/21 19:23 History of Present Illness HPI narrative: 31-year-old female presents emergency room secondary to right upper quadrant abdominal pain. She had some intermittent pain like this over the last couple weeks but it seemed to come and go. Seems to be worse over the last 4 hours. Described as a very sharp pain localized in 1 little area. Has a little discomfort into her back. She is already had her gallbladder taken out in the past. She is currently and is a 4 para 3. She is very early as last menstrual period was noted to be July 05. She is scheduled this coming Thursday to get ultrasound done. She has some mild nausea but no vomiting. She states she does have a history of some reflux and, watches what she is associate any spicy greasy type foods that does aggravate her stomach. Related Data Home Medications Medication Instructions Recorded Confirmed labetalol 200 mg tablet 200 mg PO BID 05/01/20 05/01/20 Allergies Allergy/AdvReac Type Severity Reaction Status Date / Time cocoa butter Allergy Mild Hives Verified 07/28/21 19:21 Review of Systems Review of Systems: CONSTITUTIONAL: Denies fever, chills, or sweats. EYES: Denies visual changes, redness, or discharge. ENT: Denies rhinorrhea, congestion, sore throat, or otalgia. CARDIOVASCULAR: Denies chest pain, palpitations, or edema. RESPIRATORY: Denies cough or dyspnea. GASTROINTESTINAL: Right upper quadrant abdominal pain as noted some intermittent nausea. No vomiting or diarrhea. GENITOURINARY: Denies dysuria or hematuria. SKIN: Denies rash or itching. MUSCULOSKELETAL: Denies back pain, joint pain, or myalgia. NEUROLOGIC: Denies headache, numbness, or weakness. PSYCHIATRIC: Denies anxiety or depression. [facility] Past Medical History Medical History Anxiety Chronic hypertension Compound heterozygous MTHFR mutation [id number] Depression Gastroesophageal reflux disease Hepatic steatosis History of pre-eclampsia Human papilloma virus infection Marijuana use Morbid obesity Nephrolithiasis Upper abdominal pain Surgical History Surgical History History of cholecystectomy History of lithotripsy History of tonsillectomy Family History Family History Father Kidney failure Arthritis Thyroid cancer Heart disease Father had a hole in his heart. Mother Tachycardia Thyroid cancer Grandparent Cerebrovascular accident Hypertension Kidney failure Thyroid cancer Heart disease Depression Son Asthma ADD (attention deficit disorder) Depression Social History Social History Social History: Surrogate decision maker: Chris Matias, . Code status: Full code. Smoking status: Never smoker Alcohol intake: never Substance use: current Substance use type: marijuana Additional living arrangements comments: Lives in [place] with her and 3 children. 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 Now a [id number] mom. Gender identity (if verbalized by the patient): Female Sexual Orientation (if Verbalized by the Patient): Straight or Heterosexual Spiritual care concerns: No Agree to blood products: Yes Exam Narrative: APPEARANCE: Well appearing, no pain or distress, well-nourished. Head normocephalic and atraumatic. EYES: PERRLA/EOMI, conjunctivae very clear. NOSE: Normal with no drainage EARS:TMS clear Lorri Mcarthur, with good light reflex. THROAT: Pharynx clear, no exudate. NECK: Supple. No adenopathy, no masses. RESPIRATORY: Airway patent, respirations nonlabored. Clear to auscu
[2021-07-28] MEDS: ACETAMINOPHEN 500 MG TABLET 1000 MG PO (19:38)
[2021-07-28] MEDS: FAMOTIDINE 20 MG/2 ML VIAL IV PUSH (19:39)
[2021-07-28] MEDS: BELLADONNA ALK/PHENOB ELIX 10 ML, MAG HYDROX/ALUMINUM HYD/SIMETH 30 ML, LIDOCAINE HCL 2... PO (19:39)
[2021-07-28 19:49] LABS: Basophils Absolute Auto 0.1 K/mm3 (0.0-0.1); Basophils Percent Auto 0.5 % (0.2-1.2); Eosinophils Absolute Auto 0.2 K/mm3 (0-0.3); Hematocrit 36.1 % (37.0-47.0); Hemoglobin 11.8 g/dL (12.0-15.0); Immature Granulocyte Absolute 0.03 K/mm3 (0.00-0.031); Immature Granulocyte Percent A 0.3 % (0-0.5); Lymphocytes Absolute Auto 2.72 K/mm3 (0.9-3.2); Lymphocytes Percent Auto 28.5 % (18.3-44.2); Mean Corpuscular HGB Conc 32.7 g/dl (32-36); Mean Corpuscular Hemoglobin 26.3 pg (26-34); Mean Corpuscular Volume 80.4 fl (80-100); Mean Platelet Volume 9.4 fl (7.4-10.4); Monocytes Absolute Auto 0.9 K/mm3 (0.1-0.6); Monocytes Percent Auto 8.9 % (2.6-8.5); Neutrophils Absolute Auto 5.7 K/mm3 (1.3-6.7); Neutrophils Percent Auto 59.8 % (45.5-73.1); Platelet Count Result 282 k/mm3 (150-375); Red Blood Count 4.49 M/mm3 (4.2-5.4); Red Cell Distribution Width 14.7 % (11.5-14.5); White Blood Count 9.6 K/mm3 (4.5-10.0)
[2021-07-28 19:58] LABS: Appearance Urine Slightly Cloudy (Clear); Bilirubin Urine Negative (Negative); Color Urine Yellow (Yellow); Glucose Urine UA Negative (Negative); Ketones Urine Trace mg/dL (Negative); Leukocyte Esterase Ur Negative LEU/UL (Negative); Nitrate Urine Negative (Negative); Protein Urine 1+ mg/dL (Negative); Specific Grav Ur >= 1.030 (1.001-1.035); Urobilinogen Urine 0.2 mg/dL (<2.0)
[2021-07-28 19:58] LABS: Alanine Aminotransferase 18 U/L (6-35); Albumin Level 4.2 g/dL (3.5-5.1); Alkaline Phosphatase 60 U/L (38-126); Anion Gap 7 mmol/L (8-16); Aspartate Amino Transferase 19 U/L (14-36); Bilirubin,Total 0.2 mg/dL (0.2-1.3); Blood Urea Nitrogen 8 mg/dL (7-17); Carbon Dioxide 22 mmol/L (22-30); Chloride 106 mmol/L (98-107); Estimated CRCL calculation 195 ml/min; Estimated Glomerular Filt Rate > 60; Glucose 108 mg/dL (65-110); Lipase 36 U/L (23-300); Potassium 3.5 mmol/L (3.4-5.0); Sodium 135 mmol/L (137-145)
[2021-07-28 20:02] LABS: Bacteria Urine Trace /hpf; Mucus Urine Moderate /lpf; Squamous Epithelial Cell Urine Moderate /hpf (Few); WBC Urine 0-3 /hpf
[2021-07-28 20:05] LABS: Add Urine Microscopic? YES; Blood Urine Trace (Negative)
[2021-07-28 21:11] VITALS: BP 139/67; PULSE 89; RESP 18; O2SAT 99
== END 2021-07-28 20:54 | disposition home or self-care (01) ==
PROVIDERS: Emergency Provider Emergency Medicine
DX: O99.611 Diseases of the digestive system complicating pregnancy, first trimester (principal); K26.9 Duodenal ulcer, unspecified as acute or chronic, without hemorrhage or perforation; O10.911 Unspecified pre-existing hypertension complicating pregnancy, first trimester; K21.9 Gastro-esophageal reflux disease without esophagitis; O99.211 Obesity complicating pregnancy, first trimester; E66.01 Morbid (severe) obesity due to excess calories; Z3A.00 Weeks of gestation of pregnancy not specified; Z87.442 Personal history of urinary calculi
CPT/HCPCS: 36415; 80053; 81001; 81025; 83690; 85025; 96374; 99284; A9270

== ENCOUNTER 2021-07-29 07:46 | Outpatient (CLI) | payer OTHER, SELFPAY ==
--- NOTE | ~2021-07-29 | US_ITS ---
EXAMINATION: US abdomen limited DATE: 07/29/2021 08:18 INDICATION: Right upper quadrant abdominal pain. TECHNIQUE: Multiple grayscale and Doppler ultrasound images of the abdomen were obtained. COMPARISON: None FINDINGS: Visualized portion of the pancreatic body is normal in appearance. The head and tail are obscured. Li rossy has normal contour, with a smooth surface. There is increased parenchymal echogenicity and coarse jesse echotexture consistent with diffuse hepatic steatosis. No liver lesion identified. No intrahepat ic biliary duct dilation suspected. Portal venous flow was seen in the hepatopetal, normal direction and has normal Doppler waveform. Gallbladder is not visualized and reportedly surgically absent. The common bile duct measures 5 mm diameter which is normal. The visualized proximal inferior vena cava i s normal.. IMPRESSION: 1. Diffuse hepatic steatosis. Reviewed, dictated and finalized at location B.
== END 2021-07-29 07:47 | disposition home or self-care (01) ==
LOC: ANHIMG 07:48
PROVIDERS: Visit Provider Emergency Medicine
DX: R52 Pain, unspecified (principal); K76.0 Fatty (change of) liver, not elsewhere classified
CPT/HCPCS: 76705

== ENCOUNTER 2022-03-02 00:01 | Inpatient (IN) | payer OTHER, SELFPAY ==
[2022-03-02] VITALS (185 sets, daily range): BP systolic 89–170; BP diastolic 42–100; PULSE 58–108; RESP 16–20; TEMP 36.7–37; O2SAT 80–100; BMI 43.5
--- OUTSIDE RECORDS SUMMARY | 2022-03-02 00:07 | XMS_ITS | Continuity of Care Document ---
Author Name Unknown Organization [facility] Address [address] [place] [id number] Encounter [facility] [address] Financial Number [id number] Date(s): 11/14/20 - 11/14/[address] [id number] Encounter Diagnosis Syncope(Discharge Diagnosis) - 11/14/20 Vomiting(Discharge Diagnosis) - 11/14/20 Chest pain(Discharge Diagnosis) - 11/14/20 GERD without esophagitis(Discharge Diagnosis) - 11/14/20 Discharge Disposition: Home w/Physician Follow-up Attending Physician: Tom Melo M.D. Allergies, Adverse Reactions, Alerts No Known Allergies Medications labetalol 0 Start Date: 11/14/20 Status: Ordered omeprazole 20 mg oral delayed release capsule 20 mg, 1 capsule(s), Oral, daily before breakfast, 30 capsule(s), Capsule(s), 0, 0, Route to Pharmacy Electronically, [facility]/pharmacy #[id number], NCPDP_[id number], 173, cm, 11/14/2020 1150, Height, 125, kg, 11/14/2020 1150, Weight Start Date: 11/14/20 Status: Ordered Zofran ODT 4 mg oral tablet, disintegrating 4 mg, 1 tablet(s), Oral, [id number], PRN, 10 tablet(s), Tablet DIS, 0, 0, nausea, 12/04/2020 1555, Route to Pharmacy Electronically, [facility]/pharmacy #[id number], NCPDP_[id number], 173, cm, 11/14/2020 1150, Height, 125, kg, 11/14/2020 1150, Weight Start Date: 11/14/20 Stop Date: 12/04/20 Status: Ordered Procedures Procedure Date Related Diagnosis Body Site Status Cholecystectomy Completed Tonsillectomy Completed Results Laboratory List Name Date POC Troponin-I (i-STAT) 11/14/20 POC Urine 11/14/20 TSH with Reflex 11/14/20 CBC with Differential 11/14/20 Comprehensive Metabolic Profile 11/14/20 Differential, Automated 11/14/20 POC Troponin-I (i-STAT) 11/14/20 Most recent to oldest [Reference Range]: 1 2 Albumin [3.5-5.0 g/dL] 4.6 g/dL (11/14/20 12:26 PM) Alk Phos [38-126 U/L] 76 U/L (11/14/20 12:26 PM
[2022-03-02 00:44] LABS: Basophils Absolute Auto 0.1 K/mm3 (0.0-0.1); Basophils Percent Auto 0.5 % (0.2-1.2); Eosinophils Absolute Auto 0.3 K/mm3 (0-0.3); Eosinophils Percent Auto 2.5 % (0-4.4); Hemoglobin 11.2 g/dL (12.0-15.0); Immature Granulocyte Absolute 0.07 K/mm3 (0.00-0.031); Immature Granulocyte Percent A 0.7 % (0-0.5); Lymphocytes Absolute Auto 2.21 K/mm3 (0.9-3.2); Lymphocytes Percent Auto 20.8 % (18.3-44.2); Mean Corpuscular HGB Conc 32.9 g/dl (32-36); Mean Corpuscular Hemoglobin 26.6 pg (26-34); Mean Corpuscular Volume 80.8 fl (80-100); Monocytes Absolute Auto 0.9 K/mm3 (0.1-0.6); Monocytes Percent Auto 8.5 % (2.6-8.5); Neutrophils Absolute Auto 7.1 K/mm3 (1.3-6.7); Platelet Count Result 247 k/mm3 (150-375); Red Blood Count 4.21 M/mm3 (4.2-5.4); Red Cell Distribution Width 16.1 % (11.5-14.5); White Blood Count 10.6 K/mm3 (4.5-10.0)
[2022-03-02 01:04] LABS: Alanine Aminotransferase 18 U/L (6-35); Albumin Level 3.4 g/dL (3.5-5.1); Alkaline Phosphatase 98 U/L (38-126); Anion Gap 5 mmol/L (8-16); Aspartate Amino Transferase 18 U/L (14-36); Bilirubin,Total 0.3 mg/dL (0.2-1.3); Blood Urea Nitrogen 8 mg/dL (7-17); Calcium 8.8 mg/dL (8.4-10.2); Carbon Dioxide 22 mmol/L (22-30); Chloride 105 mmol/L (98-107); Estimated Glomerular Filt Rate > 60; Glucose 120 mg/dL (65-110); Potassium 3.8 mmol/L (3.4-5.0); Sodium 132 mmol/L (137-145)
--- NOTE | 2022-03-02 01:09 | LDADM ---
This patient, Laquita Howe, was admitted to Labor/Delivery/Recovery 104 on 03/02/22 at 00:01. Plans for labor, pain management and were discussed with patient. Patient/family oriented to hospital policies and general routines including ID bracelet, bed and alarms, visiting hours, pain management, procedures, bathroom and other care routines, personal items, smoking policy, room service/diet and guest tray routines, infant security routines, and visiting hours. Patient/Family are encouraged to report perceived risks to care and to ask questions if they do not understand what they are told or what they should do. See OBIX for further documentation.
[2022-03-02] MEDS: LACTATED RINGERS 1,000 ML 125 ML IV CONT ×3 (01:10→14:42)
[2022-03-02] MEDS: OXYTOCIN 30 UNITS/NS 500 ML 30 UNITS/500 ML BAG IV CONT (01:10)
--- NOTE | 2022-03-02 06:10 | WPDANESEPP ---
Anes - Eval Pre Procedure Procedure: labor epidural Date/Time: 03/02/22 06:10 Surgeon: ziggy Preop Diagnosis: pain during labor Pre Op Diagnosis: IOL Patient Data Age: 32 Gender: F Height: 1.73 m Weight: 130 kg Last Vital Signs Pulse 92 03/02/22 06:01 BP 141/78 H 03/02/22 06:01 Allergies Allergy/AdvReac Type Severity Reaction Status Date / Time diphtheria,pertussis Allergy Severe Seizure Verified 03/02/22 01:19 (acellular),te [From Adacel(Tdap Adolesn/Adult)(PF)] cocoa butter Allergy Mild Hives Verified 03/02/22 01:19 Home Medications Medication Instructions Recorded Confirmed Type vit no.95-ferrous 1 tablet PO DAILY #100 tabs 10/14/19 05/01/20 Rx fumarate 28 mg-folic acid 800 mcg tablet () labetalol 200 mg tablet 200 mg PO BID 05/01/20 05/01/20 History aspirin 81 mg tablet 81 mg PO DAILY 02/22/22 02/22/22 History Laboratory Tests 03/02/22 03/02/22 03/02/22 00:37 00:37 00:37 WBC 10.6 K/mm3 H K/mm3 (4.5-10.0) RBC 4.21 M/mm3 M/mm3 (4.2-5.4) Hgb 11.2 g/dL L g/dL (12.0-15.0) Hct 34.0 % L % (37.0-47.0) MCV 80.8 fl fl (80-100) MCH 26.6 pg pg (26-34) MCHC 32.9 g/dl g/dl (32-36) RDW 16.1 % H % (11.5-14.5) Plt Count 247 k/mm3 k/mm3 (150-375) MPV 10.0 fl fl (7.4-10.4) Immature Gran % (Auto) 0.7 % H % (0-0.5) Neut % (Auto) 67.0 % % (45.5-73.1) Lymph % (Auto) 20.8 % % (18.3-44.2) [place] % (Auto) 8.5 % % (2.6-8.5) Eos % (Auto) 2.5 % % (0-4.4) Baso % (Auto) 0.5 % % (0.2-1.2) Lymph # (Auto) 2.21 K/mm3 K/mm3 (0.9-3.2) [place] # (Auto) 0.9 K/mm3 H K/mm3 (0.1-0.6) Eos # (Auto) 0.3 K/mm3 K/mm3 (0-0.3) Baso # (Auto) 0.1 K/mm3 K/mm3 (0.0-0.1) Abs Immat Gran (auto) 0.07 K/mm3 H K/mm3 (0.00-0.031) Absolute Neuts (auto) 7.1 K/mm3 H K/mm3 (1.3-6.7) Absolute Nucleated RBC 0.0 K/mm3 K/mm3 (0.0-0.012) Nucleated RBC % 0.0 % % (0.0-0.2) Sodium Potassium Chloride Carbon Dioxide Anion Gap BUN Creatinine Estim Creat Clear Calc Estimated GFR Glucose Calcium Total Bilirubin AST ALT Alkaline Phosphatase Total Protein Albumin RPR Pending Blood Type O Positive Antibody Screen Negative 03/02/22 00:37 WBC RBC Hgb Hct MCV MCH MCHC RDW Plt Count MPV Immature Gran % (Auto) Neut % (Auto) Lymph % (Auto) [place] % (Auto) Eos % (Auto) Baso % (Auto) Lymph # (Auto) [place] # (Auto) Eos # (Auto) Baso # (Auto) Abs Immat Gran (auto) Absolute Neuts (auto) Absolute Nucleated RBC Nucleated RBC % Sodium 132 mmol/L L mmol/L (137-145) Potassium 3.8 mmol/L mmol/L (3.4-5.0) Chloride 105 mmol/L mmol/L (98-107) Carbon Dioxide 22 mmol/L mmol/L (22-30) Anion Gap 5 mmol/L L mmol/L (8-16) BUN 8 mg/dL mg/dL (7-17) Creatinine 0.40 mg/dL L mg/dL (0.7-1.0) Estim Creat Clear Calc Not Reportable Estimated GFR > 60 (59 - ) Glucose 120 mg/dL H mg/dL (65-110) Calcium 8.8 mg/dL mg/dL (8.4-10.2) Total Bilirubin 0.3 mg/dL mg/dL (0.2-1.3) AST 18 U/L U/L (14-36) ALT 18 U/L U/L (6-35) Alkaline Phosphatase 98 U/L U/L (38-126) Total Protein 7.0 g/dL g/dL (6.3-8.2) Albumin 3.4 g/dL L g/dL (3.5-5.1) RPR Blood Type Antibody Screen Patient hx anesthesia problems: none Family hx anesthesia problems: none Results Review: All pre-op
[2022-03-02] MEDS: LABETALOL HCL 100 MG TABLET 200 MG PO (06:49)
--- NOTE | 2022-03-02 10:01 | P.PNAN_ITS ---
Anes - Eval Final PreProcedure Day of Procedure 03/02/22 10:01 Patient weight: morbidly obese Neurological: alert and oriented ASA classification: III Emergent: no Anesthetic plan: proceed Anesthesia type and monitoring: regional epidural and standard monitoring Results Review: All pre-operative results and documents have been reviewed as part of the pre- operative evaluation. Informed Consent: The patient's anesthetic plan and its attendant risks and benefits were discussed with the patient/family/POA. Questions were solicited and answers provided to the satisfaction of the patient/family/POA.
--- NOTE | 2022-03-02 10:21 | WPDOBADMIT ---
Obstetrics - Admit Note Admission Note: record reviewed. No pertinent additions to the history and/or any subsequent changes in the physical findings that are not consistent with the expected course of the were found. IOL, CHTN, anticipate vaginal delivery Additions to the history and/or subsequent changes in the physical findings follow. None.
--- NOTE | 2022-03-02 10:55 | PM.OBPNLAB ---
Pain Control Date/time seen: 03/02/22 10:55 SVE /-2, AROM large amount of clear odorless fluid, anticipate vaginal delivery
--- NOTE | 2022-03-02 17:26 | PM.OBPRVD ---
OB - Delivery Note Procedure Delivery date: 03/02/22 Procedure: Events: Chronic Hypertension Induction method: AROM and Per Pitocin Protocol Delivery monitor: External FHT and Internal Uterine Route of delivery: Laceration Description: None Specimen: Yes Quantitative Blood Loss (ml): 76 Anesthesia type: Epidural Disposition: Floor Narrative: mom and baby stable and doing skin to skin Baby Date of : 03/02/22 Time of : 17:14 Weeks of gestation at delivery: 38 gender: Male Weight (pounds): 8 Weight (ounces): 5 presentation: vertex position: Right Occiput Anterior Placenta delivery description: Spontaneous Cord Vessel Description: 3 Vessels, Clamped/Cut and Delayed Cord Clamping score one minute: 8 score five minutes: 9
[2022-03-02] MEDS: OXYTOCIN 30 UNITS/NS 500 ML 30 UNITS/500 ML BAG 125 UNITS IV CONT (17:45)
[2022-03-02] MEDS: WITCH HAZEL 40 PADS 1 PAD TOPICAL (19:26)
[2022-03-02] MEDS: LANOLIN (LANSINOH) 7.5 GM CREAM 1 APPLIC TOPICAL (19:26)
[2022-03-02] MEDS: BENZOCAINE 20% AER SPR (*SP) 56 GM CAN 1 SPRAY TOPICAL (19:26)
[2022-03-02] MEDS: IBUPROFEN 600 MG TABLET PO (19:27)
--- NOTE | 2022-03-02 20:28 | PC.NURSE ---
Patient transferred to post room #280 per wheelchair from labor and delivery. Oriented to unit, room, information board, rooming in, admission packet and security measures. Patient verbalizes understanding.
[2022-03-03] VITALS (7 sets, daily range): BP systolic 130–147; BP diastolic 62–89; PULSE 83–102; RESP 16–18; TEMP 36.4–37.3; O2SAT 99–100
[2022-03-03] MEDS: IBUPROFEN 600 MG TABLET PO ×3 (04:51→19:01)
[2022-03-03 05:04] LABS: Hematocrit 32.8 % (37.0-47.0); Hemoglobin 10.8 g/dL (12.0-15.0)
--- NOTE | 2022-03-03 07:56 | PM.OBPNVD ---
OB - PN: Subj Subjective Date/time seen: 03/03/22 07:56 Patient comments: no complaints baby status: doing well OB - PN: Obj Data Labs 03/03/22 04:54 03/02/22 00:37 Labs: Laboratory Results - last 24 hr 03/03/22 04:54 Hgb 10.8 L Hct 32.8 L OB - PN A/P Plan day: 1 Plan: routine care Time Spent With Patient Time: Total time spent is greater than 50% in coordination of care (as documented) at patient's floor/unit and/or counseling patient: Time with patient: less than 15 minutes Review of Systems Review of Systems: All systems reviewed & are unremarkable except as noted in HPI and below Exam Narrative: Fundus firm and vaginal flow controlled. No lower ext redness, warmth, or edema. Negative homans. Const: General: comfortable Chest: Breast/axilla inspection: normal inspection of the breasts Resp: Effort & Inspection: normal respiratory effort Cardio: Rate: regular rate GI: GI Palp: Yes Soft to palpation Psych: Appearance: grossly normal Affect: normal affect Attitude: cooperative Thought content: Yes Normal thought content present Judgement: Good judgement present (Psych)
[2022-03-03] MEDS: LABETALOL HCL 100 MG TABLET 200 MG PO ×2 (08:53→19:01)
[2022-03-03] MEDS: MULTIVIT/MIN/PREN/FOL AC/IRON TABLET 1 TAB PO (08:54)
--- NOTE | 2022-03-03 10:00 | WPDANLDPN2 ---
Anes-Prog Note L&D Date/Time: 03/03/22 10:00 Comfortable throughout: labor and delivery Neuraxial method: epidural Epidural/Spinal procedure site: clean & non-tender Neuro status: Neuro function grossly intact. Cardiovascular status: normal Respiratory status: normal Airway patency: baseline Mental status: baseline Post-Op hydration status: normal Vital Signs: Last Vital Signs Temp 37.1 C 03/03/22 07:35 Pulse 84 03/03/22 08:53 Resp 16 03/03/22 07:35 BP 140/75 03/03/22 07:35 Pulse Ox 100 03/03/22 07:35 O2 Del Method Room Air 03/03/22 08:00 Pain score (VAS): 02/18 I/O: Intake & Output 03/02/22 03/03/22 03/03/22 23:59 07:59 15:59 Intake Total 500 Output Total 1150 Balance -1150 500 Post-procedural complaints: none Patient feedback: Patient satisfied with anesthetic care.
[2022-03-03 10:51] LABS: Rapid Plasma Reagin Non-Reactive (NonReactive)
--- NOTE | 2022-03-03 15:01 | PC.NURSE ---
[id number] Mother led the conversation with her experience and plan to feed her infant so far and her ability to independently latch infant optimally without discomfort, continue with pumping, then supplementing to feed . Reminded parents to use good handwashing technique to prevent infection. Mother is feeding appropriately for growth of infant and understands stimulating to eat if needed. Infant has had appropriate feedings in the last 24 hours meets the outcomes for weight, output and jaundice at this time. Mother states she is confident to continue her feeding plan for her infant at home, when to call for assistance and denies any additional assistance or education at this time. Reinforced understanding of milk production, transition of milk, signs of adequate intake, transition of stool, prevention/relief of engorgement, responsive watching for feeding cues, the different methods of stimulating infant to breastfeed 2-3 hours after the start of the last feeding, community resources, medication information reviewed per [facility] and when to call a provider using the resource of the mom and baby guide/[facility] website. Mother voiced understanding of the education shared.
[2022-03-04] MEDS: IBUPROFEN 600 MG TABLET PO ×2 (01:07→07:58)
--- NOTE | 2022-03-04 05:43 | PC.NURSE ---
Patient instructed on viewing the discharge video Mother & Baby Care, The First Two Weeks . Patient was given the opportunity and encouraged to ask questions. Patient verbalized understanding of information shared and has been given the mother/baby guide for home reference.
[2022-03-04] MEDS: MULTIVIT/MIN/PREN/FOL AC/IRON TABLET 1 TAB PO (07:59)
[2022-03-04 08:00] VITALS: BP 135/88; PULSE 88; RESP 18; TEMP 36.9; O2SAT 100
[2022-03-04] MEDS: LABETALOL HCL 100 MG TABLET 200 MG PO (08:00)
--- NOTE | 2022-03-04 08:18 | PM.OBPNVD ---
OB - PN: Subj Subjective Date/time seen: 03/04/22 08:18 Patient comments: no complaints baby status: doing well OB - PN: Obj Data Labs 03/03/22 04:54 03/02/22 00:37 Labs: Laboratory Results - last 24 hr 03/02/22 00:37 RPR Non-reactive OB - PN A/P Plan day: 2 Plan: routine care and discharge home (F/U in 1 week for bp check) Time Spent With Patient Time: Total time spent is greater than 50% in coordination of care (as documented) at patient's floor/unit and/or counseling patient: Time with patient: less than 15 minutes Review of Systems Review of Systems: All systems reviewed & are unremarkable except as noted in HPI and below Exam Narrative: Fundus firm and vaginal flow controlled. No lower ext redness, warmth, or edema. Negative homans. Denies h/a, v/d or e/p. Reflexes normal. Const: General: comfortable Chest: Breast/axilla inspection: normal inspection of the breasts Resp: Effort & Inspection: normal respiratory effort Cardio: Rate: regular rate GI: GI Palp: Yes Soft to palpation Psych: Appearance: grossly normal Affect: normal affect Attitude: cooperative Thought content: Yes Normal thought content present Judgement: Good judgement present (Psych)
--- NOTE | 2022-03-04 10:02 | PC.NURSE ---
[id number] Mother led the conversation with her experience and plan to feed her so far and her ability to independently latch optimally without discomfort, pumping as she chooses and supplement to feed . Reminded mother to use good handwashing technique to prevent infection. Mother is feeding appropriately for growth of infant and understands stimulating to eat if needed. Infant has had appropriate feedings in the last 24 hours meets the outcomes for weight, output and jaundice at this time. Mother states she is confident to continue feed her infant at home, when to call for assistance and denies any additional assistance or education at this time. Reinforced understanding of milk production, transition of milk, signs of adequate intake, transition of stool, prevention/relief of engorgement, responsive watching for feeding cues, the different methods of stimulating to breastfeed 2-3 hours after the start of the last feeding, community resources, medication information reviewed per [facility] and when to call a provider using the resource of the mom and baby guide/[facility] website. Mother voiced understanding of the education shared. Reported to the primary RN.
--- NOTE | 2022-03-04 19:04 | PC.NURSE ---
1300 Patient viewed the discharge video Mother & Baby Care, The First Two Weeks . Patient was given the opportunity and encouraged to ask questions. Patient verbalized understanding of information shared and has been given the mother/baby guide for home reference.
[2022-03-05 15:09] VITALS: BP 145/71; PULSE 84; RESP 20; TEMP 37.1; O2SAT 99
--- NOTE | 2022-03-17 08:06 | PM.OBDSVD ---
DS: Admitting Diagnosis Discharge Date 03/04/22 Admitting Diagnosis Induction of labor OB - DS: Summary OB Procedures : None OB Procedures Intrapartum: Spontaneous Vag Delivery OB Procedures: : None Time Spent with Patient Time attestation: Total time spent providing and/or coordinating discharge services: DS: Data Data Completed and Pending Completed studies during hospitalization: Pending at discharge 03/02/22 17:20 Surgical [PTH] Routine Discharge Plan Discharge Attending physician on discharge: Jaz Clark Consulting providers: Jaz Clark Discharging Clinician: Marylou Du Patient Disposition: Home, Self-Care Activity: pelvic rest Diet: as tolerated Discharge Instructions: Education: Mom and Baby Guide Given to: Mother Follow-Up: Call your delivering provider's office for an appointment to be seen in: 6 Weeks Mom and baby should come to the [facility] for the follow-up appointment. Appointment Date/Time: Saturday, March 05, 2022 at 2:30 pm What to expect at your follow-up visit: Physical Assessment Call [phone] if you are unable to keep your appointment time. BREAST CARE: * Wear a snug supportive bra. * For engorgement discomfort: Breast Feeding: * Apply warm moist washcloths * Express milk as needed to relieve engorgement * Wear loose clothing * For sore nipples: * Identify correct latch-on * Apply warm moist washcloths before and after nursing * Air dry nipples after nursing * May apply Lansinoh cream to nipples PERINEAL CARE: * Until bleeding stops, use your gary bottle after urinating * Change your pad frequently throughout the day * You may take sitz baths several times a day (fill your bathtub with warm water and soak for 20 minutes.) Do NOT bathe in the water * No tub baths until seen by your physician - You may shower ACTIVITY: * Rest as much as possible. * Do not exercise or lift anything heavier than your baby (such as laundry or other children.) * Avoid stairs or driving as much as possible. * Do not put anything into the vagina. No douching, tampons, or sexual activity until seen by physician. NOTIFY PHYSICIAN IF YOU HAVE ANY QUESTIONS OR IF ANY OF THE FOLLOWING SYMPTOMS OCCUR: * If your episiotomy or incision becomes red, swollen, or more painful than what you have experienced in the hospital. * If your vaginal bleeding becomes foul smelling. * If your vaginal bleeding becomes more heavy than a period or if your bleeding changes from pink to bright red. However, you may pass an occasional walnut-sized clot once or twice for the first week . * If you experience a sharp, shooting pain in you calves. * If you discover a hard, reddened area on your breast or if you experience flu-like symptoms. DIET: * Eat regular, well-balanced meals. * Drink plenty of fluids daily. If , drink to thirst. Follow-up/Referrals: Jaz Clark CNM [Certified Nurse Exhibits Curator] - Discharge Medications: Continued PNV cmb#95-ferrous fumarate-FA [] 28 mg iron- 800 mcg tablet 1 tablet PO DAILY Qty: 100 3RF labetalol 200 mg tablet 200 mg PO BID aspirin 81 mg Tablet 81 mg PO DAILY Date of admission: 03/02/22 00:01 Primary Care Provider: PHYSICIAN,INSTALLATIONS INSPECTOR Admitting Provider: Omar Simpson Attending physician on admission: Marylou Du Condition: Stable
--- NOTE | 2022-03-30 08:50 | PM.OBDSVD ---
DS: Admitting Diagnosis Discharge Date 03/04/22 Admitting Diagnosis Labor DS: Discharge Diagnosis Discharge Diagnosis (1) Vaginal delivery: Code(s): O80 - Encounter for full-term uncomplicated delivery Status: Acute OB - DS: Summary OB Procedures : None OB Procedures Intrapartum: Spontaneous Vag Delivery OB Procedures: : None Time Spent with Patient Time attestation: Total time spent providing and/or coordinating discharge services: DS: Data Data Completed and Pending Completed studies during hospitalization: Pending at discharge 03/02/22 17:20 Surgical [PTH] Routine Discharge Plan Discharge Attending physician on discharge: Jaz Clark Consulting providers: Jaz Clark Discharging Clinician: Marylou Du Patient Disposition: Home, Self-Care Activity: pelvic rest Diet: as tolerated Discharge Instructions: Education: Mom and Baby Guide Given to: Mother Follow-Up: Call your delivering provider's office for an appointment to be seen in: 6 Weeks Mom and baby should come to the [facility] for the follow-up appointment. Appointment Date/Time: Thursday, March 05, 2022 at 2:30 pm What to expect at your follow-up visit: Physical Assessment Call [phone] if you are unable to keep your appointment time. BREAST CARE: * Wear a snug supportive bra. * For engorgement discomfort: Breast Feeding: * Apply warm moist washcloths * Express milk as needed to relieve engorgement * Wear loose clothing * For sore nipples: * Identify correct latch-on * Apply warm moist washcloths before and after nursing * Air dry nipples after nursing * May apply Lansinoh cream to nipples PERINEAL CARE: * Until bleeding stops, use your gary bottle after urinating * Change your pad frequently throughout the day * You may take sitz baths several times a day (fill your bathtub with warm water and soak for 20 minutes.) Do NOT bathe in the water * No tub baths until seen by your physician - You may shower ACTIVITY: * Rest as much as possible. * Do not exercise or lift anything heavier than your baby (such as laundry or other children.) * Avoid stairs or driving as much as possible. * Do not put anything into the vagina. No douching, tampons, or sexual activity until seen by physician. NOTIFY PHYSICIAN IF YOU HAVE ANY QUESTIONS OR IF ANY OF THE FOLLOWING SYMPTOMS OCCUR: * If your episiotomy or incision becomes red, swollen, or more painful than what you have experienced in the hospital. * If your vaginal bleeding becomes foul smelling. * If your vaginal bleeding becomes more heavy than a period or if your bleeding changes from pink to bright red. However, you may pass an occasional walnut-sized clot once or twice for the first week . * If you experience a sharp, shooting pain in you calves. * If you discover a hard, reddened area on your breast or if you experience flu-like symptoms. DIET: * Eat regular, well-balanced meals. * Drink plenty of fluids daily. If , drink to thirst. Follow-up/Referrals: Jaz Clark CNM [Certified Nurse [employer]] - Discharge Medications: Continued PNV cmb#95-ferrous fumarate-FA [] 28 mg iron- 800 mcg tablet 1 tablet PO DAILY Qty: 100 3RF labetalol 200 mg tablet 200 mg PO BID aspirin 81 mg Tablet 81 mg PO DAILY Date of admission: 03/02/22 00:01 Primary Care Provider: PHYSICIAN,TRIPE SCRAPER Admitting Provider: Omar Simpson Attending physician on admission: Marylou Du Condition: Stable
== END 2022-03-04 14:30 | disposition home or self-care (01) | DRG 560 ==
LOC: ANHLDR 00:10 → ANHOB2 03-04 08:18 → ANHLDR 03-05 10:36 → ANHOB2 03-05 10:36
PROVIDERS: Advanced Practice Midwife; Admitting Provider Obstetrics & Gynecology; Visit Provider Advanced Practice Midwife
DX: O10.92 Unspecified pre-existing hypertension complicating childbirth (principal); Z37.0 Single live birth; Z3A.38 38 weeks gestation of pregnancy
CPT/HCPCS: 36415; 80053; 85014; 85018; 85025; 86592; 86850; 86900; 86901; 88307; A9270; J2590; J2795; J7120

== ENCOUNTER 2023-11-11 17:34 | Emergency (ER) | payer SELFPAY ==
--- NOTE | ~2023-11-11 | CT_ITS ---
EXAMINATION: CT facial bones w con DATE: 11/11/2023 19:24 INDICATION: Left facial pain and swelling. TECHNIQUE: Computed tomography (CT) of the facial bones and maxillofacial region was performed with 7 5 mL Omnipaque 350 intravenous contrast. 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 The dose-length product was 285.32 mGy-cm. COMPARISON: None. FINDINGS: There is leftward deviation of the nasal septum. There is mild mucosal thickening in the pa ranasal sinuses. There are carious lesions of many teeth. There are periapical lucencies at several o f the teeth. At tooth 19, there is a carious lesion with periapical lucencies and breech of the bucca l cortex of the alveolar process. There is an 8 x 4 mm subperiosteal abscess. There is soft tissue sw elling of left face. IMPRESSION: 1. Extensive dental disease with subperiosteal abscess at tooth 19. Reviewed, dictated and finalized at location A.
[2023-11-11 17:39] VITALS: BP 173/104; PULSE 108; RESP 15; O2SAT 100
[2023-11-11 17:59] VITALS: TEMP 36.8
--- NOTE | 2023-11-11 17:59 | ED.DENTAL ---
HPI - Dental/Oral General Chief complaint: Dental/Oral <CODY Santamaria Last Filed: 11/16/23 18:16> Stated complaint: facial swelling <CODY Santamaria Last Filed: 11/16/23 18:16> Time Seen by Provider: 11/11/23 17:59 <CODY Santamaria Last Filed: 11/16/23 18:16> Focused HPI: This is a 33 year old female that presents to the ER for left sided facial swelling ongoing since yesterday. Reports she has taken two doses of Augmentin. Has continued to have worsening swelling. Reports poor dentition. Denies fevers, or drainage. GENERAL: Well-appearing, well-nourished, and in no acute distress. HEAD: Normocephalic. Notable left sided facial swelling below the mandible CHEST: Clear to auscultation. ?No respiratory distress. HEART: Regular rate and rhythm.? NEURO: ?Alert and oriented x3. Patient screened in triage and initial orders placed.? ?Additional care and disposition to be based upon?diagnostic testing and treatment. <CODY Santamaria Last Filed: 11/16/23 18:16> History of Present Illness HPI Narrative: 33-year-old female with history of hypertension presents to the emergency department for left-sided facial swelling for 1 day. Patient states she went to urgent care this morning and was prescribed Augmentin. She took 2 doses today and states the swelling has since doubled in size which prompted her to come to the ED today. She states it is difficult to open her mouth. Denies difficulty swallowing or breathing, fever, vomiting. She notes that she has poor dentition. She admits to taking Augmentin within the past month for prior dental infection as well. Denies history of MRSA. <CODY Goel Last Filed: 11/11/23 21:10> Related Data Home medications: Home Medications Medication Instructions Recorded Confirmed labetalol 200 mg tablet 200 mg PO BID 05/01/20 05/01/20 aspirin 81 mg tablet 81 mg PO DAILY 02/22/22 02/22/22 <CODY Santamaria Last Filed: 11/16/23 18:16> Allergies/adverse reactions: Allergies Allergy/AdvReac Type Severity Reaction Status Date / Time diphtheria,pertussis Allergy Severe Seizure Verified 11/11/23 17:41 (acellular),te [From Adacel(Tdap Adolesn/Adult)(PF)] cocoa butter Allergy Mild Hives Verified 11/11/23 17:41 <Rebeca Norman PA-C - Last Filed: 11/16/23 18:16> Review of Systems Review of Systems: All systems reviewed & are unremarkable except as noted in HPI and below <Nilda Burnham PA-C - Last Filed: 11/11/23 21:10> [facility] Past Medical History Medical History: Medical History Anxiety Chronic hypertension Compound heterozygous MTHFR mutation [id number] Depression Gastroesophageal reflux disease Hepatic steatosis History of pre-eclampsia Human papilloma virus infection Marijuana use Morbid obesity Nephrolithiasis Upper abdominal pain <Rebeca Norman PA-C - Last Filed: 11/16/23 18:16> Surgical History Surgical History: Surgical History History of cholecystectomy History of lithotripsy History of tonsillectomy <Rebeca Norman PA-C - Last Filed: 11/16/23 18:16> Family History Family History: Family History Father Kidney failure Arthritis Thyroid cancer Heart disease Father had a hole in his heart. Mother Tachycardia Thyroid cancer Grandparent Cerebrovascular accident Hypertension Kidney failure Thyroid cancer Heart disease Depression Son Asthma ADD (attention deficit disorder) Depression <Rebeca Norman PA-C - Last Filed: 11/16/23 18:16> Social History Social History: Social History Social History: Surrogate decision maker: Chris Matias, . Code status: Full code. Smoking stat
[2023-11-11 18:47] LABS: Basophils Absolute Auto 0.1 K/mm3 (0.0-0.1); Basophils Percent Auto 0.5 % (0.2-1.2); Eosinophils Absolute Auto 0.1 K/mm3 (0-0.3); Eosinophils Percent Auto 1.1 % (0-4.4); Hematocrit 41.6 % (37.0-47.0); Immature Granulocyte Absolute 0.02 K/mm3 (0.00-0.031); Immature Granulocyte Percent A 0.2 % (0-0.5); Lymphocytes Absolute Auto 1.61 K/mm3 (0.9-3.2); Lymphocytes Percent Auto 16.1 % (18.3-44.2); Mean Corpuscular HGB Conc 33.7 g/dl (32-36); Mean Corpuscular Hemoglobin 27.6 pg (26-34); Mean Corpuscular Volume 82.1 fl (80-100); Mean Platelet Volume 9.7 fl (7.4-10.4); Monocytes Absolute Auto 0.9 K/mm3 (0.1-0.6); Monocytes Percent Auto 8.5 % (2.6-8.5); Neutrophils Absolute Auto 7.4 K/mm3 (1.3-6.7); Neutrophils Percent Auto 73.6 % (45.5-73.1); Platelet Count Result 263 k/mm3 (150-375); Red Blood Count 5.07 M/mm3 (4.2-5.4); Red Cell Distribution Width 14.2 % (11.5-14.5)
[2023-11-11 19:08] LABS: Anion Gap 7 mmol/L (4-12); Blood Urea Nitrogen 7 mg/dL (7-17); Calcium 8.8 mg/dL (8.4-10.2); Carbon Dioxide 24 mmol/L (22-30); Chloride 107 mmol/L (98-107); Estimated CRCL calculation 183 ml/min; Estimated Glomerular Filt Rate > 60; Glucose 112 mg/dL (65-110); Potassium 4.2 mmol/L (3.4-5.0); Sodium 138 mmol/L (137-145)
[2023-11-11 19:12] LABS: Erythrocyte Sedimentation Rate 17 mm/hr (0-20)
[2023-11-11] MEDS: SODIUM CHLORIDE 0.9% IV 1,000 ML 999 ML IV CONT (19:27)
[2023-11-11] MEDS: AMPICILLIN SULB 3 GM/NS 100 ML 3 GM/100 ML VIAL IVPB (19:28)
[2023-11-11 19:29] LABS: Lactic Acid Reflex 1.6 mmol/L (0.7-2.0)
[2023-11-11 19:39] LABS: CRP 2.1 mg/dL (<1.0)
[2023-11-11] MEDS: MORPHINE SULFATE (*CRX) 4 MG/ML INJ IV PUSH (19:45)
[2023-11-11 19:57] VITALS: BP 161/98; PULSE 101; RESP 16; O2SAT 98
[2023-11-11] MEDS: VANCOMYCIN 1,250 MG/NS 250 ML 1,250 MG/250 ML BAG 166.67 MG IVPB ×2 (20:11→21:47)
[2023-11-11 20:38] LABS: Lactic Acid Reflex 1.5 mmol/L (0.7-2.0)
[2023-11-11 23:28] VITALS: BP 156/96; PULSE 90; RESP 17; TEMP 36.7; O2SAT 98
== END 2023-11-11 23:29 | disposition home or self-care (01) ==
PROVIDERS: Physician Assistant; Emergency Provider Physician Assistant
DX: K04.7 Periapical abscess without sinus (principal); K02.9 Dental caries, unspecified; I10 Essential (primary) hypertension; E66.01 Morbid (severe) obesity due to excess calories; Z68.41 Body mass index [BMI] 40.0-44.9, adult; K21.9 Gastro-esophageal reflux disease without esophagitis; Z87.442 Personal history of urinary calculi; Z90.49 Acquired absence of other specified parts of digestive tract
CPT/HCPCS: 36415; 41800; 70487; 80048; 83605; 85025; 85652; 86140; 87040; 96365; 96366; 96367; 96375; 99284; J0295; J2270; J3370; J7030; Q9967

== ENCOUNTER 2024-04-26 17:30 | Emergency (ER) | payer SELFPAY ==
--- NOTE | ~2024-04-26 | XR_ITS ---
CHEST RADIOGRAPH, PA AND LATERAL CLINICAL HISTORY: dizziness and lightheadedness . COMPARISON: 05/01/2020 TECHNIQUE: PA and lateral views of the chest. FINDINGS The cardiomediastinal silhouette is unremarkable. The lungs are clear. Visualized osseous structures and soft tissues are unremarkable. IMPRESSION: No focal infiltrate or effusion. Reviewed, dictated and finalized at location A.
--- NOTE | ~2024-04-26 | CT_ITS ---
History: Dizziness, left-sided headache PROCEDURE: CT head without contrast. COMPARISON: None TECHNIQUE: Axial imaging of the head performed from the skull base to the vertex without IV contrast. Sagittal a nd coronal reformations obtained. DLP: 681 mGy-cm FINDINGS: The ventricles are normal in size, shape and position. There is no mass, mass effect or midline shift. There is no abnormal extra-axial fluid collection or intracranial hemorrhage. Visualized paranasal sinuses are clear. The mastoid air cells are well aerated. No acute displaced fractures within the overlying cranium. Impression: No acute intracranial hemorrhage or suspicious mass effect. Reviewed, dictated and finalized at location A. Impression: No acute intracranial hemorrhage or suspicious mass effect.
[2024-04-26 17:37] VITALS: BP 158/106; PULSE 96; RESP 16; TEMP 36.5; O2SAT 100
--- OUTSIDE RECORDS SUMMARY | 2024-04-26 18:10 | XMS_ITS | Data Portability ---
Author Organization [facility] [place] Address [address] [place] [address] [place] [address] Assessment Encounter Date Assessment Date Assessment LastModified by Organization Details LastModified Time 10/24/2022 10/24/2022 Annual gynecological exam performed. Patient will come back in a year unless there are new symptoms. [email or web address] Not available 10/24/2022 14:06:45 Plan of Treatment Reminders Order Date Submit Date Provider Last Modified By Organization Details Last Modified Time Details Appointments None recorded. Lab None recorded. Referral None recorded. Procedures None recorded. Surgeries None recorded. Imaging US, obstetric, biophysical profile 2022 023 [email or web address] [facility], [address], [place], [address], 3 16:22:46 non-stress test 2022 023 [email or web address] [facility], [address], [place], [address], 3 16:22:28 Medication Orders nystatin-tr iamcinolone 100,000 unit/g-0.1 % topical cream 2022 023 [employer] [id number], [address], [place], [place], [id number], 3 09:53:19 Patient TargetsNo targets recorded. Patient InstructionsNo instructions recorded. Reason for Referral None Reported. Results Created Date Observation Date Name Description Value Unit Range Abnormal Flag Note LastModifiedBy Organization Detail LastModifiedTime 02/14/19 23 02/14/2022 CULTU RE: GROUP B STREP SCREE N, REFLE X SUSCE PTIBI LITY result report SEE RESULT S BELOW Test: Cultu re: Group B Strep , Refle x Susce ptibi lity ([facility]/ [facility]/K H/V[facility] ) Speci men Sourc e: Vagin a/Rec kate Speci men Type: Vagin al/Re ctal Speci men Date: 023 5:00 PM Resul t Date: 023 2:46 PM Resul t Statu s: Final resul t Abnor mal: No Resul ting Lab: [facility] [address] [facility] [address] Tel: CULTU RE ----- ----- ----- --- No Group B strep isola jasmyne at 2 days (veronica ctive broth enhan cemen t) Not Available [facility] (Lab) [address] [facility], [place], [address], 02/17/2022 15:48:46 02/08/20 22 02/07/2022 non-s tress test No observ ation [facility]. [facility] [place] [address] [facility] [address], [place], [address], 02/07/2022 12:46:10 02/14/19 23 02/14/2022 non-s tress test No observ ation record ed. [facility] [place] [address], [place], [address], 02/14/2022 15:04:32 02/14/19 23 02/14/2022 US, edgardo tric, bioph ysica l profi le + non-s tress test No observ ation record ed. [email or web address] [place] [address] [address], [place], [address], 02/14/2022 18:26:35 02/14/19 23 02/14/2022 US, obste tric, bioph ysica l profi le + non-s tress test No observ ation record ed. LOIS [address], [place], [address], 03/03/2022 05:27:59 02/21/19 23 02/21/2022 non-s tress test No observ ation record ed. [email or web address] [place] [address], [place], [address], 02/21/2022 14:32:28 02/21/19 23 02/21/2022 US, obste tric, follo w-up No observ ation record ed. [email or web address] [address], [place], [address], 02/24/2022 11:41:10 02/21/19 23 02/21/2022 US, obste tric, follo w-up No observ ation record ed. [email or web address] [place] [address], [place], [address], 02/21/2022 17:24:45 02/21/19 23 02/21/2022 US, obste tric, bioph ysica l profi le + non-s tress test No observ ation record ed. [email or web address] [facility] [address], [place], [address], 02/21/2022 17:24:36 02/28/19 23 02/28/2022 US, obste tric, follo w-up No observ ation record ed. [email or web address] [address], [place], [address], 02/28/2022 15:40:38 02/28/19 23 02/28/2022 non-s tress test No observ ation record ed. [email or web address] [place] [address], [place], [address], 03/01/2022 20:30:52 02/28/19 23 02/28/2022 US, obste tric, bioph ysica l profi le No observ ation record ed. [email or web address] [place] [address], [place], [address], 03/01/2022 21:22:49 Result Notes None recorded. Problems Name Problem SNOMED Code Status Onset Date Resolution Date Notes Provider Name and Address Organization Details Recorded Time Pre-ecla mpsia 920974798 Completed Bryant Simpson MD [address], [place], [address], [facility] 2 18:32:37 Anxiety 89546504 Completed Elias rodriguez, [facility] 3 15:24:45 Past pregnanc y history of pre-ecla mpsia 6441082316 85435 Completed Baby ASA [facility]as [facility], [facility] 3 15:24:45 Exceptio susie large at 35415171 Completed h/o - current LGA 94% Elias To [facility], [facility] 3 15:24:45 Chronic hyperten mauri in obstetri c context 8092950 Completed Labetalo l - antenata l testing Elias To [facility], [facility] 3 15:24:45 Gastroes ophageal reflux disease 008490196 Completed pepcid prn Elias [facility], [facility] 3 15:24:45 Low lying placenta 655113884 Completed resolved Linda Spears MD [address], [place], [address], [facility] 2 09:05:16 Spinal muscular atrophy 0339447 Completed CARRIER - FOB to be tested Elias To [facility] 3 15:24:45 Past pregnanc y history of pre-ecla mpsia 4290442827 54795 Active Baby ASA Elias To [facility], [facility] 3 15:24:45 Anxiety 05928734 Active Elias To [facility] 3 15:24:45 Past pregnanc y history of delivery of macrosom al 9289720261 9102 Completed 2021 Elias To [facility] 3 15:24:45 Hyperten sive disorder 13365380 Active 2022 Zully Santana [facility] 3 09:32:10 Problem Notes None recorded. Procedures Surgical History Date Name Laterality Status Provider Name and Address Organization Details Recorded Time 09/26/19 22 Date of Last Pap Smear [facility] 09/25/2021 19:23:41 02/09/19 14 [facility]ripsy [facility] 09/25/2021 19:32:46 02/09/19 11 cholecystectomy completed Zully [facility] 09/25/2021 19:33:01 02/09/19 11 Tonsillectomy completed [facility] 09/25/2021 19:33:12 Imaging Results Imaging Date Name Status LastModified by Organiz ation Details LastModified Time 02/07/2022 non-stress test [facility] [address], [place], [address], 02/07/2022 12:46:10 02/14/2022 non-stress test completed arash [facility] [address], [place], [address], 02/14/2022 15:04:32 02/14/2022 US, obstetric, biophysical profile + non-stress test completed [facility] [place] [address], [place], [address], 02/14/2022 18:26:35 02/14/2022 US, obstetric, biophysical profile + non-stress test active LOIS [address], [place], [address], 03/03/2022 05:27:59 02/21/2022 non-stress test completed [address], [place], [address], 02/21/2022 14:32:28 02/21/2022 US, obstetric, follow-up completed [email or web address] [address], [place], [address], 02/24/2022 11:41:10 02/21/2022 US, obstetric, follow-up [email or web address] [place] [address] [address], [place], [address], 02/21/2022 17:24:45 02/21/2022 US, obstetric, biophysical profile + non-stress test completed [facility] [place] [address], [place], [address], 02/21/2022 17:24:36 02/28/2022 US, obstetric, follow-up completed [email or web address] [address], [place], [address], 02/28/2022 15:40:38 02/28/2022 non-stress test completed [email or web address], [place], [address], 03/01/2022 20:30:52 02/28/2022 US, obstetric, biophysical profile completed [email or web address] [place] [address], [place], [address], 03/01/2022 21:22:49 Procedure Notes None recorded. Medical Equipment None Reported. Allergies Allergen ID Allergen Name Allergen Category Reaction Reaction Severity Criticality Documentation Date Start Date Code Code System Note Provider Name and Address Organization Details Recorded Time 15285 cocoa extract food,medi cation Not available Not available Not available 09/25/2021 05700 95 RxNorm Zully rodriguez, [facility] 18:18:43 54836 Adacel medicatio n Not available Not available Not available 09/25/2021 66514 8 RxNorm Zully Santana [facility], [facility] 18:18:56 Medications Name Sig Start Date Stop Date Status Note LastModified by Organization Details LastModified Time amoxicillin 500 mg capsule TAKE 1 CAPSULE BY MOUTH TWICE DAILY FOR 10 DAYS 11/20 completed Not Available Not Available Not Available promethazin e-DM 6.25 mg-15 mg/5 mL oral syrup TAKE 5 ML EVERY 4 HOURS BY ORAL ROUTE NEEDED. *[facility] ONLY PAYS FOR #180* 09/25 completed Not Available Not Available Not Available labetalol 200 mg tablet TAKE 1 TABLET BY MOUTH TWICE DAILY active Not Available Not Available No t Available nystatin 100,000 unit/gram topical ointment APPLY TO THE AFFECTED AREA(S) BY TOPICAL ROUTE 2 TIMES PER DAY active Not Available Not Available No t Available fluconazole 150 mg tablet TAKE 1 TABLET BY MOUTH NOW 11/20 completed Not Available Not Available Not Available ondansetron HCl 4 mg tablet 11/20 completed Not Available Not Available Not Available Anucort-HC 25 mg suppository 10/23 completed Not Available Not Available Not Available hydrocodone 10 mg-acetamin ophen 325 mg tablet TAKE 1 TABLET BY MOUTH EVERY 4-6 HOURS NEEDED FOR PAIN 09/25 completed Not Available Not Available Not Available amoxicillin 500 mg tablet TAKE 1 TABLET BY MOUTH FOUR TIMES A DAY UNTIL GONE 09/25 completed Not Available Not Available Not Available amoxicillin 875 mg tablet TAKE 1 TABLET BY MOUTH THREE TIMES DAILY 10/24 completed Not Available Not Available Not Available nifedipine 10 mg capsule 11/20 completed Not Available Not Available Not Available triamcinolo ne acetonide 0.1 % topical ointment APPLY A THIN LAYER TO THE AFFECTED AREA(S) BY TOPICAL ROUTE 2 TIMES PER DAY 10/24 completed Not Available Not Available Not Available nystatin 100,000 unit/gram topical cream APPLY TOPICALLY ON RASH TWICE DAILY FOR THE NEXT 7 DAYS 10/24 completed Not Available Not Available Not Available nystatin-tr iamcinolone 100,000 unit/g-0.1 % topical cream APPLY TOPICALLY TO THE AFFECTED AREA TWICE DAILY IN THE MORNING AND IN THE EVENING active Not Available Not Available No t Available omeprazole 20 mg capsule,del ayed release TAKE 1 CAPSULE BY MOUTH TWICE A DAY BEFORE MEALS 09/25 completed Not Available Not Available Not Available bisacodyl 5 mg tablet,oz yed release 11/20 completed Not Available Not Available Not Available ondansetron 4 mg disintegrat ing tablet DISSOLVE 1 TABLET ON THE TONGUE ONCE EVERY 4 HOURS NEEDED FOR NAUSEA 04/11 completed Not Available Not Available Not Available amoxicillin 875 mg-potassiu m clavulanate 125 mg tablet TAKE 1 TABLET BY MOUTH TWICE DAILY FOR 7 DAYS 09/25 completed Not Available Not Available Not Available ezetimibe 10 mg tablet TAKE 1 TABLET BY MOUTH EVERY MORNING 09/25 completed Not Available Not Available Not Available omega-3 acid ethyl esters 1 gram capsule TAKE 2 CAPSULES BY MOUTH TWICE A DAY AFTER MEALS 10/24 completed Not Available Not Available Not Available Vitamin active Not Available Not Available Not Available Classic 28 mg iron-800 mcg tablet active Not Available Not Available N ot Available Vitals Date Recorded Body height Body mass index (BMI) Body weight Systolic blood pressure Diastolic blood pressure Provider Name and Address Organization Details Last Updated DateTime 02/28/2022 170.18 cm 45.1 kg/m2 479187.6 0256 g 124 mm[Hg] 76 mm[Hg] Kristine Young [facility] 3 14:47:28 Date Recorded Body height Body mass index (BMI) Systolic blood pressure Diastolic blood pressure Provider Name and Address Organization Details Last Updated DateTime 04/11/2022 170.18 cm 43.1 kg/m2 138 mm[Hg] 91 mm[Hg] Zully Santana [facility] 04/11/2022 09:31:04 Date Recorded Body weight Provider Name an d Address Organization Details Last Updated DateTime 04/11/2022 003527.95316 g Elias Palomoizzle [facility] 05/30/2022 15:24:48 Date Recorded Body height Body mass index (BMI) Body weight Systolic blood pressure Diastolic blood pressure Provider Name and Address Organization Details Last Updated DateTime 10/24/2022 170.18 cm 45 kg/m2 958622.4 5 g 137 mm[Hg] 83 mm[Hg] Lore Weinbergshad [facility] 14:09:27 Social History Question Answer Notes LastModified by Organizat ion Details LastModified Time Tobacco Smoking Status Never Smoker [facility] 10/24/2022 14:10:13 Do You Have An Advance Directive? No [email or web address] Information not available 02/07/2022 What Is Your Level Of Alcohol Consumption? None [email or web address] Information not available 09/25/2021 Are You Blind Or Do You Have Difficulty Seeing? No [email or web address] Information not available 09/25/2021 What Is Your Level Of Caffeine Consumption? Occasional Information not available 09/25/2021 In The 14 Days Before Symptom Onset, Have You Had Close Contact With A Laboratory-confir med COVID-19 While That Case Was Ill? No [email or web address] Information not available 09/25/2021 In The 14 Days Before Symptom Onset, Have You Had Close Contact With A Person Who Is Under Investigation For COVID-19 While That Person Was Ill? No [email or web address] Information not available 09/25/2021 Have You Been To An Area Known To Be High Risk For COVID-19? No [email or web address] Information not available 09/25/2021 Are You Deaf Or Do You Have Serious Difficulty Hearing? No [email or web address] Information not available 09/25/2021 What Type Of Diet Are You Following? REGULAR [email or web address] Information not available 09/25/2021 What Is The Highest Grade Or Level Of School You Have Completed Or The Highest Degree You Have Received? 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 No Information not available 10/23/2021 Do You Use Protection During Sex? No Information not available 10/23/2021 Do You Use Your Seat Belt Or Car Seat Routinely? Yes [email or web address] Information not available 09/25/2021 Do You Have Smoke And Carbon Monoxide Detectors In Your Home? Yes [email or web address] Information not available 09/25/2021 How Much Tobacco Do You Smoke? No [email or web address] Information not available 02/07/2022 Do You Feel Stressed (tense, Restless, Nervous, Or Anxious, Or Unable To Sleep At Night)? [id number] [email or web address] Information not available 09/25/2021 Do You Use Any Illicit Or Recreational Drugs? No Information not available 10/23/2021 Do You Use Sunscreen Routinely? Yes [email or web address] Information not available 09/25/2021 Has Tobacco Cessation Counseling Been Provided? No Information not available 10/24/2022 Have You Used IV Drugs? No [email or web address] Information not available 09/25/2021 Do You Or Have You Ever Used Any Other Forms Of Tobacco Or Nicotine? No Information not available 10/24/2022 Sex: Unknown Functional Status Question Answer Note LastModified by Organizat ion Details LastModified Time Do you have difficulty walking or climbing stairs? No Information not available 10/24/2022 Are you able to walk? YESWOREST [email or web address] Information not available 09/25/2021 Are you able to care for yourself? Yes Information not available 10/24/2022 Do you have difficulty dressing or bathing? No Information not available 10/24/2022 What is your exercise level? Occasional [email or web address] Information not available 09/25/2021 Mental Status None recorded. Family History Relationship Description Onset Age of this Age Resolved Age Notes LastModified by Organization Details LastModified Time Paternal Grandmother Diabetes mellitus [email or web address] Not available 02/21 15:06:48 Paternal Grandmother Depressive disorder [email or web address] Not available 02/21 15:06:48 Mother Hypercholest erolemia [email or web address] Not available 02/21 15:06:48 Mother Hypertensive disorder [email or web address] Not available 02/21 15:06:48 Mother Female infertility [email or web address] Not available 04/2022 09:22:09 Mother Uterine prolapse [email or web address] Not available 2022 09:22:09 Mother Finding of palpation of heart [email or web address] Not available 2022 09:22:09 Mother Depressive disorder [email or web address] Not available 02/21 15:06:48 Mother Anxiety disorder Not available 02/21 15:06:48 Mother Disorder of thyroid gland [email or web address] Not available 02/21 15:06:48 Father Anxiety disorder [email or web address] Not available 02/21 15:06:48 Father Depressive disorder [email or web address] Not available 02/21 15:06:48 Father Kidney disease [email or web address] Not available 02/21 15:06:48 Father Disorder of thyroid gland Not available 02/21 15:06:48 Father Hypercholest erolemia [email or web address] Not available 02/21 15:06:48 Father Heart disease [email or web address] Not available 02/21 15:06:48 Father Hypertensive disorder [email or web address] Not available 02/21 15:06:48 Paternal Grandfather Heart disease [email or web address] Not available 02/21 15:06:48 Medical History Condition Response Allergies (Food, seasonal, environmental ) Y Other Y Breast Cancer N Drug/Latex Allergies/Reactions Y Blood Transfusion N Lung Disease N Dermatologic Disorders N Defects or Inherited Disease N Breast Problem N Gestational Diabetes N Hematologic disorders N Anesthesia Complications N History of STI Y Deep Vein Thrombosis N Polycystic ovary syndrome N Anxiety Disorder Y Autoimmune disease N Arthritis N Polyps N Infertility N History of abnormal pap Y Acid Reflux (GERD) Y Cancer N Varicosities N Stroke N Neurologic/Epilepsy Y Endometriosis N High Cholesterol Y Fibromyalgia N Headaches Y Kidney Disease N Heart Problems N Kidney or Bladder Problems Y Thyroid Problems N GI Problems N Eating Disorder N Anemia N Art (IVF or FET) N Psychiatric Illness Y Ovarian Cancer N Diabetes N Pulmonary (TB, Asthma) N Hepatitis/Liver Disease N No Past Medical History N Eczema N Urinary Tract Infection N Abuse/Domestic Violence N Asthma N Trauma/Violence N Depression/ depression Y Heart Disease N Pre-Eclampsia Y Hypertension Y Osteoporosis N Thrombophilias N Gynecological History Statement/Question Response Abnormal Pap Y Date of Last Mammogram Date of LMP 06/06/2021 On BCP's at Conception? N N Was last menstrual period normal Y STIs/STDs Y HPV Vaccine Y Duration of Flow (days) 7 Current Control Method None Age at First Child 19 Sexually Active? Y Date of DEXA bone scan Age of first menstrual cycle 10 Date of Last Pap Smear 09/25/2021 Sexual Problems? N LMP Approximate N Obstetrics History GPAL:G 4 P 3 1 0 4 Type Value Full Term 3 Premature 1 Living 4 Total 4 Past Encounters Encounter ID Performer Location Encounter Start Date Encounter Closed Date Diagnosis/Indication Diagnosis SNOMED-CT Code Diagnosis ICD10 Code Diagnosis Note [id number] Laura Wetzel [place] [address],[facility] [place] [address] 09/25/2021 16:46:18 09/25/2021 17:30:10 screening 928302187 Z36.87 O09.32 Z3A.15 [id number] [facility] [address] [address] 09/25/2021 16:50:01 09/26/2021 11:58:29 test positive 561956352 Z32.01 Gynecologi c examination 48895970 Z01.419 Chronic hy pertension complicating AND/OR reason for care during 50575148 O16.9 continue nifedepine and labetalol, bring in rx so we can get doses, start asa, hx preeclamps ia x3 [id number] Marina Iglesias [facility] [address] [address] 10/23/2021 16:14:04 10/23/2021 18:18:45 screening 362041867 Z36.3 [id number] Bryant Simpson MD [place] [address] [address] 10/23/2021 16:15:12 10/24/2021 14:43:46 Routine care 512121452 Z34.82 [id number] [facility] [address],[place] [address] 11/20/2021 16:51:29 11/20/2021 17:56:11 screening 440399395 Z36.2 [id number] Jaz Clark [facility] [address],[place] [address] 11/20/2021 16:51:54 11/20/2021 17:55:56 Routine care 343341965 Z34.92 [id number] [facility] [address],[place] [address] 12/16/2021 16:44:32 12/16/2021 17:39:30 screening 950872783 Z36.2 [id number] Linda Spears MD [facility] [address],[place] [address] 12/16/2021 16:44:48 12/17/2021 16:09:56 Routine care 357919814 Z34.82 Chronic hy pertension in obstetric context 9869843 O16.9 [id number] Linda Spears MD [facility] [address] [address] 01/17/2022 09:39:33 01/24/2022 14:28:00 Routine care 924985308 Z34.82 Past pregn gala history of delivery of macrosomal 1755549788 9102 Z87.59 [id number] MD Yusef Pimentel [address],[place] [address] 01/24/2022 11:09:08 01/27/2022 16:23:50 Chronic hypertension in obstetric context 8192509 O16.9 Past pregn gala history of delivery of macrosomal infant 3662617108 9102 Z87.59 Past pregn gala history of pre-eclampsia 8623257945 62135 Z87.59 [id number] Marina Iglesias [facility] [address] [address] 01/24/2022 11:10:38 01/24/2022 13:05:26 Chronic hypertension complicating AND/OR reason for care during 99516383 O16.9 O36.60X0 Z3A.32 [id number] Jaz Clark [facility] [address],[place] [address] 02/07/2022 11:16:05 02/07/2022 13:07:15 Routine care 888807550 Z34.92 [id number] [facility] [address],[place] [address] 02/07/2022 12:10:36 02/07/2022 12:57:12 Chronic hypertension complicating AND/OR reason for care during 05453672 O16.9 [id number] Bryant Simpson MD [facility] [address],[place] [address] 02/14/2022 14:25:19 02/14/2022 15:18:23 Chronic hypertension complicating AND/OR reason for care during 22287805 O16.9 [id number] Marina Iglesias [facility] [address],[place] [address] 02/14/2022 14:26:35 02/14/2022 16:39:02 Chronic hypertension complicating AND/OR reason for care during 95947779 O16.9 Z3A.35 [id number] [facility] [address] [place] [address] 02/14/2022 14:33:05 02/14/2022 16:02:26 Routine care 293351590 Z34.92 [id number] [facility] [address] [place] [address] 02/21/2022 13:41:22 02/21/2022 14:32:00 Chronic hypertension complicating AND/OR reason for care during 05037516 O16.9 Z3A.35 [id number] [facility] [address],[place] [address] 02/21/2022 14:30:27 02/21/2022 15:57:01 Routine care 662857909 Z34.92 [id number] Marina Iglesias [facility] [address],[place] [address] 02/21/2022 14:34:34 02/24/2022 14:27:45 Chronic hypertension complicating AND/OR reason for care during 58649253 O16.9 Z87.59 Z3A.36 [id number] [facility] [address],[place] [address] 02/28/2022 13:45:08 02/28/2022 16:22:27 Chronic hypertension complicating AND/OR reason for care during 12405533 O16.9 Z87.59 Z3A.36 [id number] [facility] [address],[place] [address] 02/28/2022 13:45:31 02/28/2022 16:22:46 Chronic hypertension complicating AND/OR reason for care during 35408069 O16.9 Z87.59 Z3A.36 [id number] [facility] [address] [address] 02/28/2022 13:45:48 02/28/2022 15:10:54 Routine care 824964330 Z34.92 [id number] [facility] [address],[place] [address] 04/04/2022 14:10:37 04/07/2022 12:39:08 [id number] Zully Santana [facility] [address],[place] [address] 04/11/2022 09:22:04 04/11/2022 11:18:35 care [id number] Z39.2 doing well f/u wwe 6 months Yeast detected [id number] R89.5 [id number] OLIVER GIMENEZ MD [facility] [address],[place] [address] 10/24/2022 13:56:34 10/24/2022 14:43:03 Gynecologic examination [id number] Z11.51 Z11.3 Well woman care- Cervical cancer screening: Pap smear not indicated (next 09/2026)- Breast cancer screening: mammogram not indicated- Colon cancer screening: not indicated- HPV immunizati on: received- STD testing: declined- hereditary cancer screening: does not qualify for testing Health Concerns Section Related Observation LastModified by Organization Detai ls LastModified Time None Recorded Concern Status LastModified by Organization Details LastModified Time None Recorded Advance Directives Directive N: Payers Encounter Date Sequence Insurance Name Policy Number Policy Medrano Covered Member ID Medrano Member ID Guarantor Name 02/28/2022 1 FORMERLY [facility] (MEDICAID HMO) [id number] Laquitaher Howe [id number] [facility] 02/28/2022 1 [employer] [facility] [facility] [place] [id number] Laquita Howe [id number] [facility] 04/04/2022 1 [employer] [facility] [place] [id number] 0003 Laquita Howe [id number] Laquita Howe 04/11/2022 1 [employer] [facility] [facility] [place] [id number] 0003 Laquita Howe [id number] Laquita Shyam 10/24/2022 1 [employer] [facility] [facility] [place] [id number] 0003 [facility] [id number] Laquita Shyam Notes Date Note Type Note Provider Name and Address Organization Details Recorded Time 04/11/2022 text/html VisitReported bypatient.Quality:N Context:complicatio ns of : none; complications of labor: none; complications: none; good support from partner/family; resumed menstrual bleeding no Associated Symptoms:no abnormal bleeding; no vaginal discharge; no pelvic pain; no constipation; no fecal incontinence; no dysuria; no urinary incontinence; no feverNotes: planning vasectomy Zully Santana null, [facility] 04/14/2022 17:43:07 10/24/2022 text/html Presents today f or her annual well-woman exam. She denies concerns today. Denies abnormal vaginal discharge. She is sexually active and denies dyspareunia. She is using cycle tracking for contraception, and she states that she is satisfied with this method. is scheduling a vasectomy. She has not noticed any changes or masses in her breasts. , amenorrheic since delivery. OLIVER GIMENEZ MD [address], [place], [address], [facility] 10/24/2022 14:37:22 OBGyn Episode Ob Episode Information Episode Created Date Number of Fetuses Patient Bloodtype Patient rh Status Prepregnancy Weight lbs Domestic Partner Domestic Partner Phone Father Name Stone Polisher Status 10/24/19 22 1 O Positive CLOSED Fetus Data First Name Last Name Admitted to NICU Weight (g) Sex Living Outcome Pediatric Complications Fetus ID Race Codes Race Delivery Type 3770.48 35 M true Full Term LGA [address]08 Vaginal Delivery Problems Problem Notes COVID x2 prior to pregnancy pre-registration appt Problem Name Start Date End Date Resolution Snomed Code Not e Anxiety [id number] Past history of pre-eclampsia [id number] Baby ASA Exceptionally large at 41015569 h/o - current LGA 94% Chronic hypertension in obstetric context 8153551 Labetalol - testing Gastroesophageal reflux disease [id number] pepcid prn Spinal muscular atrophy 866995 7 CARRIER - FOB to be tested Past history of delivery of macrosomal 01/24/2022 [id number] Esteban Calculation Initial Esteban Date Initial Exam Date Initial Exam Provider Initial Ultrasound Date Last Menstrual Period Date Ultra Sound Weeks Gestation 03/13/2022 10/23/2021 09/25/2021 06/06/2021 15 Eighteen To Twenty Week Esteban Update Ultra Sound Date Fundal Height At Umbil Quickening Date Ultra Sound Latest Weeks Gestation Final Esteban Confirmed By Final Esteban Confirmed Date Final Esteban Date Ultra Sound Latest Days Gestation 0 [email or web address] 10/23/2021 03/16/19 23 0 Pre-ysabel Flowsheet Flowsheet Date 10/23/2021 Moe Score Blood Edema Fundus Height Fundus Units Glucose Ketones Leukocytes Nitrite Labor Signs Protein Cervic Dilation Cervic Effacement Cervic Station Type Weight in lbs Pre/Post Dialysis Refused Weight 275.796014570076 BP Diastolic BP Location Tested BP Systolic BP Type 85 R arm 149 sitting Fetus Heart Rate Present Fetus Movement Comments this patient is a 31-year-ol d 4 para 03/12/2002 at 19 weeks and 6 days gestation who presents for initial care. She has a strong history of preeclampsia in each of her pregnancies. She has had 3 pregnancies with 3 vaginal births. All appear to be at term. She claims there was a 36 week delivery. Her last child was at 37 weeks. She takes labetalol for chronic hypertension. complicated by anxiety and gastroesophageal reflux disease. She appears to have infants are large for gestational age are would be large for gestational age at term. She should be observed for LGA /macrosomia. To have genetic screening today. labs have already been done. To begin care. She has seizure associated with Tdap shot. Does not do flu vaccines. She was encouraged to do flu vaccine. She has been infected with COVID twice. Flowsheet Date 11/20/2021 Moe Score Blood Edema Fundus Height Fundus Units Glucose Ketones Leukocytes Nitrite Labor Signs Protein Cervic Dilation Cervic Effacement Cervic Station Type Weight in lbs Pre/Post Dialysis Refused BP Diastolic BP Location Tested BP Systolic BP Type Fetus Heart Rate Present Fetus Movement Comments Flowsheet Date 11/20/2021 Moe Score Blood Edema Fundus Height Fundus Units Glucose Ketones Leukocytes Nitrite Labor Signs Protein Cervic Dilation Cervic Effacement Cervic Station neg none none trace Type Weight in lbs Pre/Post Dialysis Refused Weight 270.49207375978 BP Diastolic BP Location Tested BP Systolic BP Type 78 130 Fetus Heart Rate Present Fetus Movement A Yes Comments patient is having nausea and vomiting. has zofran and its helping lots of food aversions, efw 61% anatomy incomplete f/u 4 weeks LLP resolved, precautions reviewed Flowsheet Date 12/16/2021 Moe Score Blood Edema Fundus Height Fundus Units Glucose Ketones Leukocytes Nitrite Labor Signs Protein Cervic Dilation Cervic Effacement Cervic Station Type Weight in lbs Pre/Post Dialysis Refused BP Diastolic BP Location Tested BP Systolic BP Type Fetus Heart Rate Present Fetus Movement Comments Flowsheet Date 12/16/2021 Moe Score Blood Edema Fundus Height Fundus Units Glucose Ketones Leukocytes Nitrite Labor Signs Protein Cervic Dilation Cervic Effacement Cervic Station neg none 30 none trace Type Weight in lbs Pre/Post Dialysis Refused Weight 278.050958580132 BP Diastolic BP Location Tested BP Systolic BP Type 79 132 Fetus Heart Rate Present A 140 Fetus Movement A Yes Comments Doing well. GCT today. Canno t do Tdap. Nausea finally improved. US today anatomy now complete. Growth 52%. Flowsheet Date 01/17/2022 Moe Score Blood Edema Fundus Height Fundus Units Glucose Ketones Leukocytes Nitrite Labor Signs Protein Cervic Dilation Cervic Effacement Cervic Station neg trace 39 Type Weight in lbs Pre/Post Dialysis Refused Weight 276.976760588797 BP Diastolic BP Location Tested BP Systolic BP Type 79 130 Fetus Heart Rate Present A 135 Fetus Movement A Yes Comments Doing ok except stress- orde r of protection for oldest- dad is registered sex offender. Will add US next visit for LGA. Precautions given. Flowsheet Date 01/24/2022 Moe Score Blood Edema Fundus Height Fundus Units Glucose Ketones Leukocytes Nitrite Labor Signs Protein Cervic Dilation Cervic Effacement Cervic Station neg none Type Weight in lbs Pre/Post Dialysis Refused Weight 279.307542039173 BP Diastolic BP Location Tested BP Systolic BP Type 82 138 Fetus Heart Rate Present A 125 Fetus Movement A Yes Comments Doing well eexcept for stres s. No concerns. US 74%. Precautions discussed. Flowsheet Date 01/24/2022 Moe Score Blood Edema Fundus Height Fundus Units Glucose Ketones Leukocytes Nitrite Labor Signs Protein Cervic Dilation Cervic Effacement Cervic Station Type Weight in lbs Pre/Post Dialysis Refused BP Diastolic BP Location Tested BP Systolic BP Type Fetus Heart Rate Present Fetus Movement Comments Flowsheet Date 02/07/2022 Moe Score Blood Edema Fundus Height Fundus Units Glucose Ketones Leukocytes Nitrite Labor Signs Protein Cervic Dilation Cervic Effacement Cervic Station neg none none trace Type Weight in lbs Pre/Post Dialysis Refused Weight 280.70570166524 BP Diastolic BP Location Tested BP Systolic BP Type 79 129 Fetus Heart Rate Present Fetus Movement A Yes Comments patient is having some contr actions, discharge, nausea and vomiting. testing was not scheduled. NST today, pt unable to stay for BPP. will schedule weekly with growth at next visit. contractions sporadic, thinks from stress, has to go to court soon, cervical exam and firm, discussed PTL precautions has to do IOL on a or thursday, will schedule at 38.5 NO mayer visual changes, bp normotensive Flowsheet Date 02/07/2022 Moe Score Blood Edema Fundus Height Fundus Units Glucose Ketones Leukocytes Nitrite Labor Signs Protein Cervic Dilation Cervic Effacement Cervic Station Type Weight in lbs Pre/Post Dialysis Refused BP Diastolic BP Location Tested BP Systolic BP Type Fetus Heart Rate Present Fetus Movement Comments Flowsheet Date 02/14/2022 Moe Score Blood Edema Fundus Height Fundus Units Glucose Ketones Leukocytes Nitrite Labor Signs Protein Cervic Dilation Cervic Effacement Cervic Station Type Weight in lbs Pre/Post Dialysis Refused BP Diastolic BP Location Tested BP Systolic BP Type Fetus Heart Rate Present Fetus Movement Comments Flowsheet Date 02/14/2022 Moe Score Blood Edema Fundus Height Fundus Units Glucose Ketones Leukocytes Nitrite Labor Signs Protein Cervic Dilation Cervic Effacement Cervic Station Type Weight in lbs Pre/Post Dialysis Refused BP Diastolic BP Location Tested BP Systolic BP Type Fetus Heart Rate Present Fetus Movement Comments Flowsheet Date 02/14/2022 Moe Score Blood Edema Fundus Height Fundus Units Glucose Ketones Leukocytes Nitrite Labor Signs Protein Cervic Dilation Cervic Effacement Cervic Station neg none none trace 1cm 20% -3 Type Weight in lbs Pre/Post Dialysis Refused Weight 286.344694381804 BP Diastolic BP Location Tested BP Systolic BP Type 78 127 Fetus Heart Rate Present Fetus Movement A Yes Comments patient is having some contr actions, nausea and vomiting. having trouble with insomnia but no sleep aids, hx of trauma in childhood. BPP 10/10 doing well, gbs today, precautions reviewed, f/u one week Flowsheet Date 02/21/2022 Moe Score Blood Edema Fundus Height Fundus Units Glucose Ketones Leukocytes Nitrite Labor Signs Protein Cervic Dilation Cervic Effacement Cervic Station Type Weight in lbs Pre/Post Dialysis Refused BP Diastolic BP Location Tested BP Systolic BP Type Fetus Heart Rate Present Fetus Movement Comments Flowsheet Date 02/21/2022 Moe Score Blood Edema Fundus Height Fundus Units Glucose Ketones Leukocytes Nitrite Labor Signs Protein Cervic Dilation Cervic Effacement Cervic Station Type Weight in lbs Pre/Post Dialysis Refused BP Diastolic BP Location Tested BP Systolic BP Type Fetus Heart Rate Present Fetus Movement Comments Flowsheet Date 02/21/2022 Moe Score Blood Edema Fundus Height Fundus Units Glucose Ketones Leukocytes Nitrite Labor Signs Protein Cervic Dilation Cervic Effacement Cervic Station 1cm 40% -2 Type Weight in lbs Pre/Post Dialysis Refused Weight 286.705482802927 BP Diastolic BP Location Tested BP Systolic BP Type Fetus Heart Rate Present Fetus Movement Comments efw 94%, doing well, court p ostponed until after her induction, precautions reviewed f/u one week Flowsheet Date 02/28/2022 Moe Score Blood Edema Fundus Height Fundus Units Glucose Ketones Leukocytes Nitrite Labor Signs Protein Cervic Dilation Cervic Effacement Cervic Station Type Weight in lbs Pre/Post Dialysis Refused BP Diastolic BP Location Tested BP Systolic BP Type Fetus Heart Rate Present Fetus Movement Comments Flowsheet Date 02/28/2022 Moe Score Blood Edema Fundus Height Fundus Units Glucose Ketones Leukocytes Nitrite Labor Signs Protein Cervic Dilation Cervic Effacement Cervic Station Type Weight in lbs Pre/Post Dialysis Refused BP Diastolic BP Location Tested BP Systolic BP Type Fetus Heart Rate Present Fetus Movement Comments Flowsheet Date 02/28/2022 Moe Score Blood Edema Fundus Height Fundus Units Glucose Ketones Leukocytes Nitrite Labor Signs Protein Cervic Dilation Cervic Effacement Cervic Station neg none none trace 2cm 30% -2 Type Weight in lbs Pre/Post Dialysis Refused Weight 288.469620933445 BP Diastolic BP Location Tested BP Systolic BP Type 76 124 Fetus Heart Rate Present Fetus Movement A Yes Comments Patient states having nausea , ready for IOL, NST R, no swelling, precautions reviewed Flowsheet Date 04/04/2022 Moe Score Blood Edema Fundus Height Fundus Units Glucose Ketones Leukocytes Nitrite Labor Signs Protein Cervic Dilation Cervic Effacement Cervic Station Type Weight in lbs Pre/Post Dialysis Refused BP Diastolic BP Location Tested BP Systolic BP Type Fetus Heart Rate Present Fetus Movement Comments Flowsheet Date 04/11/2022 Moe Score Blood Edema Fundus Height Fundus Units Glucose Ketones Leukocytes Nitrite Labor Signs Protein Cervic Dilation Cervic Effacement Cervic Station Type Weight in lbs Pre/Post Dialysis Refused Weight 275.360112278988 BP Diastolic BP Location Tested BP Systolic BP Type 91 138 Fetus Heart Rate Present Fetus Movement Comments Menstrual History Last Menstrual Date Menses Monthly On Bcp Conception Prior Menses Frequency Hcg Plus Date Menarche Onset Age 0406/06/2021 Genetic Screening And Infection History Question Response Note Mental Retardation/Autism false Patient's Age Will Be 35 Years Or Older At Estim ated Date of Delivery false Thalassemia (Ukrainian, Portuguese, Mediterranean, Or Background): MCV < 80 false Neural Tube Defect (Meningomyelocele, Spina Bifi da, Or Anencephaly) false Congenital Heart Defect false Down Syndrome false Camacho-Sachs (eg, Restorationist, Cajun, Gambian-[place]) f alse Kalpesh Disease false Sickle Cell Disease Or Trait () false Hemophilia Or Other Blood Disorders false Muscular Dystrophy false Cystic Fibrosis false Zahra's Chorea false Intellectual Disability/Autism false If Yes, Was Person Tested For Fragile X? false Other Inherited Genetic Or Chromosomal Disorder false Maternal Metabolic Disorder (eg, Type 1 Diabetes , PKU) false Patient Or Baby's Father Had A Child With Defects Not Listed Above false Recurrent Loss, Or A Stillbirth false Medications (including Suppl ements, Vitamins, Herbs, OTC Drugs), Illicit/Recreational Drugs, Alcohol false If Yes, Agent(s) And Strength/Dosage false Any Other Genetic History false Live With Someone With TB Or Exposed To TB false Patient Or Partner Has History Of Genital Herpes false Rash Or Viral Illness Since Last Menstrual Perio d false History Of STD, Gonorrhea, Chlamydia, HPV, Syphi lis true HPV Other Infection History false History of HIV false History of Hepatitis false Prior GBS-infected child false Hemoglobinopathy Or Carrier false Other Structural Defect false Recent Travel History Outside of Country false Delivery Information Delivery Date Delivery Type Labor Anesthesia Weeks Gestation Incision Type Labor Labor Length Hrs Delivered By Post Complications Tubal Sterilization Discharge Date Comments 3 Induce d Regional-Ep idural 38 false Jaz Clark CNM CHTN, SMA CARRIER, Discharge Information Feeding Method Contraceptive Method Maternal HG B and HCT Levels Ob Episode Information Episode Created Date Number of Fetuses Patient Bloodtype Patient rh Status Prepregnancy Weight lbs Domestic Partner Domestic Partner Phone Father Name Stone Polisher Status 09/26/19 22 1 CLOSED Fetus Data First Name Last Name Admitted to NICU Weight (g) Sex Living Outcome Pediatric Complications Fetus ID Race Codes Race Delivery Type 4252.42 5 M Full Term [id number] Vaginal Delivery Esteban Calculation Initial Esteban Date Initial Exam Date Initial Exam Provider Initial Ultrasound Date Last Menstrual Period Date Ultra Sound Weeks Gestation 0 Eighteen To Twenty Week Esteban Update Ultra Sound Date Fundal Height At Umbil Quickening Date Ultra Sound Latest Weeks Gestation Final Esteban Confirmed By Final Esteban Confirmed Date Final Esteban Date Ultra Sound Latest Days Gestation 0 0 Menstrual History Last Menstrual Date Menses Monthly On Bcp Conception Prior Menses Frequency Hcg Plus Date Menarche Onset Age Delivery Information Delivery Date Delivery Type Labor Anesthesia Weeks Gestation Incision Type Labor Labor Length Hrs Delivered By Post Complications Tubal Sterilization Discharge Date Comments 0 40 preeclam p marcela Discharge Information Feeding Method Contraceptive Method Maternal HG B and HCT Levels Ob Episode Information Episode Created Date Number of Fetuses Patient Bloodtype Patient rh Status Prepregnancy Weight lbs Domestic Partner Domestic Partner Phone Father Name Stone Polisher Status 09/26/19 22 1 CLOSED Fetus Data First Name Last Name Admitted to NICU Weight (g) Sex Living Outcome Pediatric Complications Fetus ID Race Codes Race Delivery Type 3259.96 5704 M Prematur e [id number] Vaginal Delivery Esteban Calculation Initial Esteban Date Initial Exam Date Initial Exam Provider Initial Ultrasound Date Last Menstrual Period Date Ultra Sound Weeks Gestation 0 Eighteen To Twenty Week Esteban Update Ultra Sound Date Fundal Height At Umbil Quickening Date Ultra Sound Latest Weeks Gestation Final Esteban Confirmed By Final Esteban Confirmed Date Final Esteban Date Ultra Sound Latest Days Gestation 0 0 Menstrual History Last Menstrual Date Menses Monthly On Bcp Conception Prior Menses Frequency Hcg Plus Date Menarche Onset Age Delivery Information Delivery Date Delivery Type Labor Anesthesia Weeks Gestation Incision Type Labor Labor Length Hrs Delivered By Post Complications Tubal Sterilization Discharge Date Comments 8 36 true preeclam p marcela Discharge Information Feeding Method Contraceptive Method Maternal HG B and HCT Levels Ob Episode Information Episode Created Date Number of Fetuses Patient Bloodtype Patient rh Status Prepregnancy Weight lbs Domestic Partner Domestic Partner Phone Father Name Stone Polisher Status 09/26/19 22 1 CLOSED Fetus Data First Name Last Name Admitted to NICU Weight (g) Sex Living Outcome Pediatric Complications Fetus ID Race Codes Race Delivery Type 3997.05 2704 F Full Term [id number] Vaginal Delivery Esteban Calculation Initial Esteban Date Initial Exam Date Initial Exam Provider Initial Ultrasound Date Last Menstrual Period Date Ultra Sound Weeks Gestation 0 Eighteen To Twenty Week Esteban Update Ultra Sound Date Fundal Height At Umbil Quickening Date Ultra Sound Latest Weeks Gestation Final Esteban Confirmed By Final Esteban Confirmed Date Final Esteban Date Ultra Sound Latest Days Gestation 0 0 Menstrual History Last Menstrual Date Menses Monthly On Bcp Conception Prior Menses Frequency Hcg Plus Date Menarche Onset Age Delivery Information Delivery Date Delivery Type Labor Anesthesia Weeks Gestation Incision Type Labor Labor Length Hrs Delivered By Post Complications Tubal Sterilization Discharge Date Comments 0 37 preeclam p marcela Discharge Information Feeding Method Contraceptive Method Maternal HG B and HCT Levels
--- OUTSIDE RECORDS SUMMARY | 2024-04-26 18:10 | XMS_ITS | Patient Health Record ---
Author Organization [facility] Address [address] [place], [place] [id number] Care Team Providers Care Tactical Debriefer Officer Name Role Phone Madhav Cortez Unavailable [phone] Reason For Referral No Information Plan Of Treatment No Information
--- OUTSIDE RECORDS SUMMARY | 2024-04-26 18:10 | XMS_ITS | Clinical Summary ---
Author Organization [facility] Address [address] [place] [address] Care Team Providers Care Buyers' Agent Name Role Phone Maylin Miller MD Primary Care Provider [phone] Allergies Active Allergy Reactions Criticality Noted Date Comments [place] Butter Hives,Itching,Rash,Swelling Low 2013 Tetanus-Diphtheria Toxoids Td Seizure 08/16/2021 Medications folic acid 1 MG tablet Take 4 mg by mouth daily. Active ondansetron 4 MG tabletIndications :Nausea and vomiting, unspecified vomiting type Take 1 tablet (4 mg total) by mouth every 8 (eight) hours as needed for Nausea. 30 tablet 2 2 Active ( VITAMINS) 28-0.8 MG tabletIndications :11 weeks gestation of ([facility]) Take 1 tablet by mouth daily. 90 tablet 3 2 Active famotidine 20 MG tabletIndications :Gastroesophageal reflux disease without esophagitis Take 1 tablet (20 mg total) by mouth 2 (two) times daily as needed for Heartburn. 60 tablet 4 2 Active nystatin creamIndications: Tinea corporis Apply topically 2 (two) times daily. Use on rash for the next 7 days. 30 g 1 2 Active bisacodyl EC (DULCOLAX) 5 MG Tab EC tabletIndications :Constipation, unspecified constipation type Take 2 tablets (10 mg total) by mouth daily as needed. at bedtime. 60 tablet 1 2 Active NIFEdipine (PROCARDIA) 10 MG capsuleIndication s:Chronic hypertension in ([facility]) Take 1 capsule (10 mg total) by mouth 2 (two) times a day. Take if BP >140/90 90 capsule 1 2 Active labetalol (NORMODYNE) 200 MG tabletIndications :Chronic hypertension in ([facility]) TAKE 1 TABLET(200 MG) BY MOUTH TWICE DAILY 180 tablet 3 Active Active Problems Problem Noted Date Diagnosed Date Anxiety 08/16/2021 Arthritis 08/16/2021 Chronic hypertension during ([facility]) 08/16/2021 Overview (08/16/2021): baseline labs (prior to 20 weeks): BUN 8/creatinine 0.53/ALT 13/AST 12 24 hr urine: 216 mg protein/24 hr Last Assessment & Plan: Blood pressure appropriate today without medication. Asymptomatic for preeclampsia. Dull headache with cessation of caffeine. Reassuring testing AGA growth identified 09/12 Maternal Medicine recommendations: 1. Continue to check blood pressure at home daily 2. Instructed to review blood pressures at each Instructional Developer visit 1. Reviewed Goal blood pressures <155/95 2. Report promptly elevations to primary OB 3. Continue Aspirin 162 mg daily 4. Serial growth assessments 5. Twice daily kick counts 6. Weekly 10 point biophysical profile starting at 32 weeks 7. Delivery initiation at 39 weeks 8. Would benefit from and weight reduction 9. Preeclampsia warnings reviewed again in detail, and also discussed if headache not relieved with starting caffeine to alert Instructional Developer and seek evaluation. Laquita verbalized understanding. Fatty (change of) liver, not elsewhere classifie d 08/16/2021 GERD (gastroesophageal reflux disease) 2 High cholesterol 08/16/2021 Maternal morbid obesity, antepartum ([facility]) 05/11/2019 Overview (08/16/2021): Last Assessment & Plan: Total weight gain thus far: 10 lb 9.6 oz (4.808 kg) Borderline fasting value on GTT of 91 Maternal Medicine recommendations: 1. Recommend virtual visit with CDE for nutritional counseling, patient agreeable, will coordinate with our CDE 2. Recommended limiting weight gain to less than 15 lb 3. Encouraged daily exercise 4. Serial growth ultrasounds, if fetus shows signs of possible GDM, will have patient check glucoses, thus far AGA with appropriate SAMARA. Generalized anxiety disorder 02/09/2006 Overview (08/16/2021): Last Assessment & Plan: Reports that she is coping with life stressors. Maternal Medicine recommendations: 1. recommend establishing care with a mental health provider--assistance initiated today 2. Reassess mood visits Estimated Date of Delivery Comme nts Yes 03/19/2022 Immunizations Name Administration Dates Next Due Tdap (Generic) 11/24/2009 Family History Medical History Relation Comments Arthritis Father Cancer Father Depression Father Heart Disease Father Hypertension Father Kidney Disease Father Cancer Mother Hypertension Mother Mental Health Mother Miscarriages / Stillbirths Mother Relation Status Comments Father Mother Social History Tobacco Use Types Packs/Day Years Used Date Smoking Tobacco: Never Alcohol Use Standard Drinks/Week Comments Not Currently 0 (1 standard drink = 0.6 oz pur e alcohol) PHQ-2 Answer Date Recorded PHQ-2 Score - If the patient scores above 3, please move on to questions 3-9 0 08/16/2021 Estimated Date of Delivery Comme nts Yes 03/19/2022 Sex and Gender Information Value Date Recorded Sex Assigned at Not on file Legal Sex Female 9:28 AM CDT Gender Identity Not on file Sexual Orientation Not on file Last Filed Vital Signs Vital Sign Reading Time Taken Comments Blood Pressure 130/88 09/13/2021 7:27 AM CDT Pulse 89 09/13/2021 7:13 AM CDT Temperature 37 C (98.6 F) 09/13/2021 7:13 AM CDT Respiratory Rate 18 09/13/2021 7:13 AM CDT Oxygen Saturation 99% 09/13/2021 7:13 AM CDT Inhaled Oxygen Concentration - - Weight 125.4 kg (276 lb 6.4 oz) 09/13/2021 7:13 AM CDT Height 175.3 cm (5' 9 ) 09/13/2021 7:13 AM CDT Body Mass Index 40.82 09/13/2021 7:13 AM CDT Plan of Treatment Health Maintenance Due Date Last Done Comments Cervical Cancer Screening Pa p Smear (Age 30 to 64) Every 3 Years 1990 PHQ-2 ([facility] [place]) 2002 Hepatitis B Vaccines (1 of 3 - 19+ 3-dose series) 2009 DTaP, Tdap and Td Vaccines ( 2 - Td or Tdap) 11/25/2019 11/24/2009 Cervical Cancer Screening Pa p with HPV Testing (Age 30 to 64) Every 5 Years 01/21/2020 Cervical Cancer Screening with HPV 01/21/2020 Annual Physical 09/13/2022 09/13/2021 COVID-19 Vaccine (1 - 2023-2 5 season) 2023 Influenza Adult (#1) 2023 PHQ-2 ([facility] [place]) 02/10/2024 RSV Immunization or 60+ Years (1 - 1-dose 75+ series) 2065 Hepatitis C Completed 08/16/2021 HPV Vaccines Aged Out No longer eligi ble based on patient's age to complete this topic Meningococcal B Vaccine Aged Out No l onger eligible based on patient's age to complete this topic Meningococcal Vaccine Aged Out No radha yolanda eligible based on patient's age to complete this topic Pneumococcal Vaccine: Pediat rics (0 to 5 Years) and At-Risk Patients (6 to 64 Years) Aged Out No longer eligi ble based on patient's age to complete this topic RSV Immunizations Under 20 Months Aged Out No longer eligible based on patient's age to complete this topic Procedures Procedure Name Priority Date/Time Associated Diagnosis Comments HEPATITIS C ANTIBODY Routine 08/16/2021 7:58 AM CDT Encounter for medical examination to establish care General medical exam Encounter for hepatitis C screening test for low risk patient from Last 3 Months or Most Recently Relevant to Health Maintenance Results * HEPATITIS C ANTIBODY (08/16/2021 7:58 AM CDT) HEPATITIS C AB NON-REACTI VE NON-REACT [place] 08/16/2021 6:45 PM CDT [facility] Comment: ANTIBODIES TO HCV NOT DETECTED. DOES NOT EXCLUDE THE POSSIBILITY OF EXPOSURE TO HCV. 08/16/2021 7:58 AM CDT Maylin Miller MD LABORATORY Final Result [facility] [address] [place] [address], [id number] from Last 3 Months or Most Recently Relevant to Health Maintenance Insurance [employer] Care Teams Buyers' Agent Relationship Specialty Start Date End Date Maylin Miller MD [address] [address] PCP - General INTERNAL MEDICINE 08/16/21
--- OUTSIDE RECORDS SUMMARY | 2024-04-26 18:10 | XMS_ITS | Clinical Summary ---
Author Organization [facility] Address [address] 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 This disclosure is being madepursuant to the Care Everywhere program and may not contain all information available regarding this patient. Last updated 17.[facility] Allergies Active Allergy Reactions Criticality Noted Date Comments Chocolate 05/27/2009 [place] Butter 08/15/2013 Tylenol Cold & Flu Severe Nighttime 11/21/2013 Medications * Be aware that medications may not be up to date on this document. Alwaysverify current medications with the patient. Medication Sig Dispensed Refills Start Date End Date Status Multiple Vitamins-Calcium (DAILY VITAMINS FOR WOMEN PO) Take by mouth. Active buPROPion XL 24hr (WELLBUTRIN-XL) 150 MG tablet Take 150 mg by mouth daily. Active mebendazole (VERMOX) 100 MG chew tablet Chew 1 tab by mouth. Repeat in 2 weeks if symptoms continue. 2 Tab 0 04/11/2013 Active Additional Information Patient not taking.Reported on 05/11/2019 ondansetron (ZOFRAN) 4 MG tablet Take 1 Tab by mouth every 4 hours as needed for Nausea/Vomiting. 10 Tab 0 04/11/2013 Active Additional Information Patient not taking.Reported on 05/11/2019 amLODIPine (NORVASC) 5 MG tablet Take 1 Tab by mouth once daily. 30 Tab 0 08/19/2013 Active Additional Information Patient not taking.Reported on 05/11/2019 ciprofloxacin-dexa methasone (CIPRODEX) 0.3-0.1 % otic suspension Instill 4 Drops into right ear 2 times daily. Shake well before using. 1 Bottle 0 08/19/2013 Active Additional Information Patient not taking.Reported on 05/11/2019 predniSONE (DELTASONE) 20 MG tablet Take 2 Tabs by mouth once daily. 10 Tab 0 11/06/2013 Active Additional Information Patient not taking.Reported on 05/11/2019 famotidine (PEPCID) 20 MG tablet Take 1 Tab by mouth 2 times daily. 20 Tab 0 11/06/2013 Active Additional Information Patient not taking.Reported on 05/11/2019 diphenhydrAMINE (BENADRYL) 25 MG capsule Take 1 Cap by mouth every 4 hours as needed for Itching. 20 Cap 0 11/06/2013 Active Additional Information Patient not taking.Reported on 05/11/2019 ketorolac (TORADOL) 10 MG tablet Take 1 Tab by mouth every 6 hours as needed for Pain. 20 Tab 0 05/19/2014 Active Additional Information Patient not taking.Reported on 05/11/2019 ibuprofen (MOTRIN) 600 MG tablet Take 1 Tab by mouth every 6 hours as needed for Pain 20 Tab 0 10/31/2014 Active Additional Information Patient not taking.Reported on 05/11/2019 loratadine (CLARITIN) 10 MG tablet Take 1 Tab by mouth once daily 30 Tab 0 10/31/2014 Active Additional Information Patient not taking.Reported on 05/11/2019 guaifenesin ER 12hr (MUCINEX) 600 MG tablet Take 1 Tab by mouth every 12 hours 30 Tab 0 10/31/2014 Active Additional Information Patient not taking.Reported on 05/11/2019 hydrocodone-acetam inophen (NORCO) 5-325 MG tablet Take 1 Tab by mouth every 4 hours as needed for Pain 15 Tab 0 04/05/2015 Active Additional Information Patient not taking.Reported on 05/11/2019 ondansetron, disintegrating, (ZOFRAN ODT) 4 MG tablet Take 1 Tab by mouth every 6 hours as needed for Nausea/Vomiting Allow tablet to dissolve on the tongue 20 Tab 0 04/05/2015 Active Additional Information Patient not taking.Reported on 05/11/2019 cyclobenzaprine (FLEXERIL) 10 MG tablet Take 10 mg by mouth 3 times daily as needed for Muscle Spasms Active progesterone micronized (PROMETRIUM) 100 MG capsule Take 100 mg by mouth 2 times daily Active folic acid (FOLVITE) 1 MG tablet Take 4 mg by mouth once daily Active Vit-Fe Fumarate-FA ( VITAMIN) 28-0.8 MG tablet Take 1 tablet by mouth once daily Active aspirin (ASPIRIN) 81 MG chew tabletIndications: preeclampsia prevention Take 2 tablets by mouth once daily Reasons: preeclampsia prevention 120 tablet 11 05/11/2019 Active riboflavin 100 MG tabletIndications: Prevention of Headaches Take 4 tablets by mouth once daily Reasons: Headache Prophylaxis 120 tablet 11 08/31/2019 Active Active Problems Problem Noted Date Diagnosed Date Maternal morbid obesity, antepartum 05/11/2019 Assessment & Plan (08/17/2019 2:07 PM CDT): Total weight gain thus far: 10 lb [...] glucoses, thus far AGA with appropriate SAMARA. Assessment & Plan (07/20/2019 3:50 PM CDT): 3 lb (1.361 kg): TWG thus far Maternal Medicine recommendations: 1. detailed anatomy survey in process, see formal ultrasound report 2. recommended limiting weight gain to less than 15 lb 3. Encouraged daily exercise 4. Please sent GCT results once they are available Assessment & Plan (05/11/2019 3:25 PM CDT): Obese women have higher rates of spontaneous miscarriage. Morbid obesity is associated with a host of complications: increased risk for preeclampsia and gestational hypertension, delivery, macrosomia, gestational diabetes, deep venous thrombosis, delivery, stillbirth and certain defects, such as open neural tube defects. deliveries are associated with an increased risk of complications, such as anesthetic complications, wound complications and infections. During , limited weight gain is recommended. The [place] of Medicine recommends a total weight gain in between 11-20 lb for women who have obese body habitus as defined by a body mass index greater than or equal to 30. Maternal Medicine recommendations: 1. detailed anatomy survey at 22 weeks 2. recommended limiting weight gain to less than 15 lb Generalized anxiety disorder 02/09/2006 Assessment & Plan (05/11/2019 3:27 PM CDT): Reports that she is coping with life stressors. Maternal Medicine recommendations: 1. recommend establishing care with a mental health provider--assistance initiated today 2. Reassess mood visits Chronic hypertension during , with prior history of preeclampsia Overview (05/11/2019): baseline labs (prior to 20 weeks): BUN 8/creatinine 0.53/ALT 13/AST 12 24 hr urine: 216 mg protein/24 hr Assessment & Plan (09/28/2019 10:02 AM CDT): Blood pressure appropriate today without medication. Asymptomatic for preeclampsia. Dull headache with cessation of caffeine. Reassuring testing AGA growth identified 09/12 Maternal Medicine recommendations: 1. Continue to check blood pressure at home daily 2. Instructed to review blood pressures at each [employer] visit 1. Reviewed Goal blood pressures <155/95 [...] not relieved with starting caffeine to alert [employer] and seek evaluation. Laquita verbalized understanding. Assessment & Plan (08/31/2019 10:41 AM CDT): Blood pressure normotensive today without medication. Asymptomatic for preeclampsia. Reassuring testing AGA growth identified 08/16. Maternal Medicine recommendations: 1. Continue to check blood pressure at home daily 2. Instructed to review blood pressures at each [employer] visit 1. Reviewed Goal blood pressures <155/95 2. Report promptly elevations to primary OB 3. Continue Aspirin 162 mg daily 4. Serial growth assessments 5. Twice daily kick counts 6. Weekly 10 point biophysical profile starting at 32 weeks, began today 7. Delivery initiation at 39 weeks 8. Would benefit from and weight reduction 9. Preeclampsia warnings reviewed again in detail, patient with strong understanding Assessment & Plan (08/17/2019 2:00 PM CDT): Blood pressure logs: appropriate. Blood pressure normotensive today without medication. Asymptomatic for preeclampsia. AGA growth identified today. Maternal Medicine recommendations: 1. Continue to check blood pressure at home daily 2. Instructed to review blood pressures at each [employer] visit 1. Goal blood pressures <155/95 2. Report promptly elevations to primary OB 3. Continue Aspirin 162 mg daily 4. Serial growth assessments 5. Twice daily kick counts 6. Weekly 10 point biophysical profile starting at 32 weeks, plans to do in our office 7. Delivery initiation at 39 weeks 8. Would benefit from and weight reduction 9. Preeclampsia warnings reviewed again in detail, patient with strong understanding Assessment & Plan (07/20/2019 3:52 PM CDT): Blood pressure logs: appropriate. Blood pressure normotensive today without medication. Incomplete anatomy survey, AGA growth identified today. Maternal Medicine recommendations: 1. Continue to check blood pressure at home daily 2. Instructed to review blood pressures at each [employer] visit 1. Goal blood pressures <155/95 2. Report promptly elevations 3. Continue Aspirin 162 mg daily 4. Serial growth assessments 5. Twice daily kick counts 6. Weekly 10 point biophysical profile starting at 32 weeks 7. Delivery initiation at 39 weeks 8. Would benefit from and weight reduction 9. Preeclampsia warnings reviewed in detail, strict surveillance thereof Assessment & Plan (05/11/2019 3:26 PM CDT): Chronic Hypertension Hypertension prior to and during the first 20 weeks of this is consistent with chronic hypertension. Chronic hypertension is associated with a 20-25% risk for superimposed preeclampsia. Low dose aspirin has a small-moderate benefit in the prevention of preeclampsia in at risk women ([place] DSR, 2008). There is no significant risk of low dose aspirin if initiated after the first trimester of . Low dose aspirin therapy is discussed. Antihypertensive therapy does not reduce the risk for superimposed preeclampsia. Aldomet and labetalol are the agents with the largest experience in (NIH, 2000). Both are FDA category C medications. Considerations with both include a potential association of beta-nirali use with growth disturbance and somnolence as an undesirable side effect of Aldomet. Labetalol is the agent which is typically used by providers at this institution. Diuretic therapy during is associated with a reduction in the normal physiologic expansion of plasma volume. The targets of therapy with chronic hypertension are typically <160 mm Hg systolic and 90-105 mm Hg diastolic. Consistent blood pressures above 155/95 would be an indication to initiate antihypertensive medication. Aggressive normalization of blood pressure does not have benefit otherwise; it may have an undesirable impact on outcome. Aggressive treatment of hypertension does not reduce the risk for superimposed preeclampsia. Chronic hypertension is associated with an elevated risk of growth disturbance. It provides an indication for periodic assessments of the growth throughout . A reasonably aggressive approach is an ultrasound for growth at 28 weeks gestation with subsequent assessments at 4-6 week intervals thereafter (NIH, 2000). Chronic hypertension is associated with an elevated risk for morbidity and mortality. It provides an indication for formal antepartum surveillance. Such surveillance is typically initiated at 32 weeks gestation. The mechanics and performance characteristics of formal surveillance are discussed. movement monitoring is an adjunct form of surveillance. No macro proteinuria or abnormalities of kidneys or liver on baseline studies. Currently normotensive without medication. Currently taking aspirin for preeclampsia risk reduction. Maternal Medicine recommendations: 1. blood pressure supplies given today 2. Instructed to sign up to MyChart and send blood pressure logs weekly for review 1. Goal blood pressures <155/95 3. increase Aspirin to 162 mg daily 4. Serial growth assessments at 28, 33 and 37-38 weeks 5. Daily kick count starting at 28 weeks 6. Weekly 10 point biophysical profile starting at 32 weeks 7. Delivery initiation at 39 weeks 8. Would benefit from and weight reduction Depression and Anxiety Assessment & Plan (08/17/2019 2:05 PM CDT): Mood appropriate today. No current medications for anxiety/depression. Maternal Medicine recommendations: 1. Encouraged consideration of establishing with a counselor 2. Assess mood at all visits, monitor for PP depression following delivery Assessment & Plan (07/20/2019 3:37 PM CDT): Mood appropriate today. Shares she has more support at home which has made a positive impact on her mood. Maternal Medicine recommendations: 1. Encouraged consideration of establishing with a counselor 2. Assess mood at all visits Assessment & Plan (05/11/2019 3:27 PM CDT): Mood appears appropriate today. At risk for mood deterioration. Maternal Medicine recommendations: 1. recommend establishing care with a mental health provider--assistance initiated today 2. Reassess mood visits Resolved Problems Problem Noted Date Diagnosed Date Resolved Date LGA (large for gestational age) fetus 11/12/2009 05/06/2019 Overview (11/12/2009): >90% GERD (gastroesophageal reflux disease) 11/08/2009 05/11/2019 Overview (11/08/2009): History of GERD relieved with pepcid previous to , no current issues and not currently using pepcid. HSV infection 08/20/2009 05/11/2019 Overview (11/08/2009): By serology; no outbreaks, check for lesions at delivery Hepatitis C 07/16/2009 05/11/2019 Overview (09/20/2009): HCV RNA Log Quant <1.6 06/22/09 Pervasive developmental disorder 07/16/2009 07/16/2009 High risk social situation 07/16/2009 0 05/06/2019 Overview (09/20/2009): Pt has a restraining order against the father of the baby; safe at home Supervision of high-risk pre gnancy of young primigravida 07/16/2009 05/06/2019 Overview (11/15/2009): O+/I/-/-; HIV NR GCT 116, 105 QS wnl GBS negative total [facility] from [facility] Obesity 07/16/2009 05/11/2019 Overview (11/15/2009): Patient's height is 69 inches. Her weight at first visit was 212 pounds. Her pre BMI is 31.3. Her ideal weight gain is 0 to 15 pounds, so long as she does not have ketonuria (secondary to starvation ketosis) and fetus is AGA. GCT 105 Abdominal pain, generalized 06/22/2009 11/08/2009 Near syncope 06/21/2009 05/11/2019 1st trimester screening 05/04/2009 040 02/2019 Abdominal pain in 04/19/2009 11/08/2009 Syncope and collapse 04/02/2009 020 Overview (11/08/2009): Events every 4-6 months previous to , more events early in , has improved with progression of and no events since July Attention deficit hyperactiv ity disorder (ADHD) 05/11/2019 Overview (11/08/2009): On adderall previous to . Bladder irritability 010 Overview (09/20/2009): Spasmotic; no meds GERD (gastroesophageal reflux disease) 11/08/2009 Overview (09/20/2009): Pepcid Generalized anxiety disorder 05/11/2019 Overview (09/20/2009): Stable, no other meds Depressive disorder, not elsewhere classified 05/11/2019 Overview (09/20/2009): wellbutrin SR 100mg q day, mood stable PDD (pervasive developmental disorder) 05/11/2019 Overview (09/20/2009): Lives with mother. Fuctional Immunizations Name Administration Dates Next Due TDAP (7yrs+) 11/24/2009 Family History Medical History Relation Name Comments Arthritis Father autoimmune Arthritis - Osteo Father Cancer Father thyroid Heart Failure Father Hypertension Father Kidney Disease Father Thyroid Disease Father Cancer Mother thyroid (a diff erent kind than her father) Migraine Mother Clotting Disorder Other dad's uncl e, doesn't know etiology Heart Disease Paternal Grandfather Heart Disease Paternal Grandmother Relation Name Status Comments Father Mother Alive Other Paternal Grandfather Paternal Grandmother Social History Tobacco Use Types Packs/Day Years Used Date Smoking Tobacco: Former Smokeless Tobacco: Never Tobacco Cessation:Counseling Given: Yes Alcohol Use Standard Drinks/Week Comments No 0 (1 standard drink = 0.6 oz pur e alcohol) Sex and Gender Information Value Date Recorded Sex Assigned at Not on file Gender Identity Not on file Sexual Orientation Not on file Last Filed Vital Signs Vital Sign Reading Time Taken Comments Blood Pressure 131/83 10/12/2019 2:53 PM CDT Pulse 104 10/12/2019 2:53 PM CDT Temperature 36.1 C (97 F) 10/12/2019 2:53 PM CDT Respiratory Rate 16 03/03/2016 10:35 AM [employer] Oxygen Saturation 99% 08/17/2019 8:44 AM CDT Inhaled Oxygen Concentration - - Weight 135 kg (297 lb 9.6 oz) 09/28/2019 9:00 AM CDT Height 175.3 cm (5' 9 ) 05/11/2019 1:54 PM CDT Body Mass Index 43.95 05/11/2019 1:54 PM CDT Plan of Treatment Health Maintenance Due Date Last Done Comments PAP SMEAR 1990 HEPATITIS B VACCINE (1 of 3 - 19+ 3-dose series) 2009 DTAP/TDAP/TD VACCINES (2 - Td or Tdap) 11/25/2019 11/24/2009 COVID-19 VACCINE ( - 2023- season) 2023 INFLUENZA VACCINE (#1) 2023 DEPRESSION SCREENING 02/10/2024 ZOSTER VACCINE (1 of 2) 01/21/2040 HIV SCREENING Completed 09/12/2009, 06/22/2009 HEPATITIS C SCREENING Completed 05/11/2019 , 11/21/2009, 11/15/2009, Additional history exists HIB VACCINE Aged Out No longer eligi ble based on patient's age to complete this topic HPV VACCINE Aged Out No longer eligi ble based on patient's age to complete this topic MENINGOCOCCAL (Group B) VACCINE SHARED DECISION-MAKING Aged Out No longer eligible based on patient's age to complete this topic MENINGOCOCCAL GROUPS A/C/Y/W VACCINE Aged Out No longer eligible based on patient's age to complete this topic PNEUMOCOCCAL VACCINE Aged Out No long er eligible based on patient's age to complete this topic Procedures Procedure Name Priority Date/Time Associated Diagnosis Comments HIV-1 HIV-2 ANTIBODY Today 09/12/2009 3:30 PM CDT Suprv High-Risk Preg NEC HEPATITIS C RNA QUANTITATIVE STAT 06/22/2009 3:45 AM CDT Orthostatic Hypotension from Last 3 Months or Most Recently Relevant to Health Maintenance Results * HIV-1 HIV-2 ANTIBODY (09/12/2009 3:30 PM CDT) Pathologist [facility] HIV-1/HIV-2 Nonreactive Nonreactive [facility] BLOOD SPECIMEN / Unknown 09/12/2009 3:30 PM CDT 09/12/2009 5:20 PM CDT Bobby Yan MD LAB - CHEMISTRY [facility] [address] [place] [address] * HEPATITIS C RNA QUANTITATIVE PCR (06/22/2009 3:45 AM CDT) Pathologist [facility] Hepatitis C Virus RNA Log Quantitative <1.6 log IU/ml [facility] Comment Ref Lab [facility] Comment: Comments and Normal Ranges for Component HCV RNA Quant(log IU/ml) TEST INFORMATION/ Hepatitis C Virus RNA Quantitative Real-Time PCR(log IU/mL) The quantitative range of this assay is 1.6-7.8 log IU/mL (43- 69,000,000 IU/mL). An interpretation of Not Detected does not rule out the presence of PCR inhibitors in the patient specimen or hepatitis C virus RNA concentrations below the level of detection of the assay. Care should be taken when interpreting any single viral load determination. This assay should not be used for blood donor screening, associated re-entry protocols, or for screening Human Cell, Tissues and Cellular Tissue-Based Products (HCT/P). Interpretation Hepatitis C RNA Quantitative Not Detected Not Detected [facility] Hepatitis C Virus RNA Quantitative <43 IU/ml [facility] BLOOD SPECIMEN / Unknown 06/22/2009 3:45 AM CDT 06/22/2009 4:07 AM CDT Narrative Resulting Agency Comment Performed By [employer] [address] [place], [place] [address] Sirisha Downs MD LAB - CHEMISTRY [facility]ELISSA LORD Performing Organization Address City/State/[facility] Co de Phone Number [facility] [address] [place] [address] from Last 3 Months or Most Recently Relevant to Health Maintenance Advance Directives * Full Code (Latest Code Status on File) Date Activated Date Inactivated Comments 08/16/2013 5:01 AM 08/19/2013 7:42 PM * Full Code Date Activated Date Inactivated Comments 11/23/2009 8:33 AM 11/26/2009 5:40 AM * Full Code Date Activated Date Inactivated Comments 11/21/2009 6:13 PM 11/23/2009 7:09 AM * Full Code Date Activated Date Inactivated Comments 06/22/2009 3:04 AM 06/29/2009 2:54 PM * Full Code Date Activated Date Inactivated Comments 05/04/2009 6:48 PM 05/08/2009 7:02 AM Care Teams Re[employer] Relationship Specialty Start Date End Date Philip Devine MD [address] [place] [address] PCP - General Family Medicine [facility]03[facility] [place] [address] [address] [facility] [place] [address] 03/03/16 Laura Bobby RN Extract Operator 08/16/13
--- OUTSIDE RECORDS SUMMARY | 2024-04-26 18:10 | XMS_ITS | CONTINUITY OF CARE DOCUMENT ---
Author Name antonio alvarez Address Unknown Organization [facility] Address [address] [address] [place] [address] Phone [phone] Care Team Providers Care Talking Books Library Clerk Name Role Phone Tyson ROMERO, Oliver Unavailable VENANCIO OTERO MD Unavailable [phone] VENANCIO OTERO MD Unavailable [phone] PROBLEMS Condition Status Date Provider Notes SYNCOPE;NEG HOLTER, EVENT RE C, ECHO, CAROTID AND TILT 2010 active Oliver Mehta MD CAD;NEG STRESS ECHO 11 active Oliver Mehta MD OBESITY;CANNOT AFFORD MEDIFAST active Festus Mehta MD HYPERCHOLESTEROLEMIA active Oliver Auguste HYPERTRIGLYCERIDEMIA;WILLTRY FISH OIL active Oliver Mehta MD ANEMIA, IRON DEFICIENCY;ON IRON active Verónica Mehta MD HEPATITIS C;TO SEE SPEICIALIST completed 2 - Oliver Mehta MD GALLSTONES;CLEAR FOR SURGERY active Oliver Mehta MD TONSILLITIS;OK FOR SURGERY active Oliver davidson MD ANXIETY DISORDER active Oliver Mehta MD DEPRESSION active Oliver Mehta MD PERVASIVE DVLPMENTL D/O CURR /ACTV STATE active Oliver Mehta MD GERD active Oliver Mehta MD HYPOALBUMINEMIA;3.1 2010 WIT H MILD PROTEINURIA active Oliver Mehta MD ENCOUNTERS Date Type Provider Location Encounter Diag nosis - In-person encounter Office Visit Oliver Mehta MD [facility] Office SYNCOPE;NEG HOLTER, EVENT REC, ECHO, CAROTID AND TILT 2011OBESITY;CANNOT AFFORD MEDIFASTANEMIA, IRON DEFICIENCY;ON IRONHEPATITIS C;TO SEE SPEICIALISTHYPOALBUMINEMIA;3.1 2010 WITH MILD PROTEINURIA - In-person encounter Office Visit Oliver Mehta MD [facility] Office SYNCOPE;NEG HOLTER, EVENT REC, ECHO, CAROTID AND TILT 2011CAD;NEG STRESS ECHO 11OBESITY;CANNOT AFFORD MEDIFASTHYPERCHOLESTEROLEMIAHYPE RTRIGLYCERIDEMIA;WILLTRY FISH OILANEMIA, IRON DEFICIENCY;ON IRONGALLSTONES;CLEAR FOR SURGERYTONSILLITIS;OK FOR SURGERYANXIETY DISORDERDEPRESSIONPERVASIVE DVLPMENTL D/O CURR/ACTV STATEGERD VITAL SIGNS Date Observation Value Provider blood pressure, diastolic 72 mm[Hg] Al sara Hernandez blood pressure, systolic 122 mm[Hg] Tonie Hernandez pulse rate 85 /min Spring Hernandez oxygen saturation, oximetry 97 % Spring Hernandez respiratory rate E&M 18 /min Spring Hernandez weight E&M 216 [lb_av] Spring Hernandez blood pressure, diastolic 72 mm[Hg] Al sara Hernandez blood pressure, systolic 124 mm[Hg] Tonie Hernandez pulse rate 106 /min Spring Hernandez oxygen saturation, oximetry 99 % Spring Hernandez respiratory rate E&M 18 /min Spring Hernandez weight E&M 232.8 [lb_av] Spring Hernandez ALLERGIES Allergy Name Onset Date Reaction Criticality Status CHOCOLATE High Criticality active HISTORY OF MEDICATION USE Medication Status Instructions Dates Provider Indications Com ments WELLBUTRIN TABLET active one a day Oliver Mehta MD FEOSOL 200 (65 Fe) MG ORAL TABLET active one a day Oliver Mehta MD OMEGA-3 FISH OIL 1000 MG ORAL CAPSULE active One tab. daily Oliver Mehta MD DAILY VITAMINS ORAL TABLET active 1 tablet once daily Spring Hernandez SOCIAL HISTORY Date Observation Value Provider social history reviewed E&M reviewed Oliver Mehta MD social history E&M Marital Status: Single Oliver Mehta MD smoking status Non-Smoker Oliver Mehta MD social history reviewed E&M reviewed Oliver Mehta MD MENTAL STATUS Date Observation Value Provider assessment of judgme nt and insight E&M Alert and oriented to time, place and person. Mood and affect are normal. Oliver Mehta MD assessment of judgme nt and insight E&M Alert and oriented to time, place and person. Mood and affect are normal. Oliver Mehta MD INSURANCE PROVIDERS Payer name Policy type / Coverage type On license of [facility] AND FAMILY SERVICES Medicaid 9 [id number] TREATMENT PLAN Date Name Performer 3 month follow up Oliver Mehta MD 3 month follow up Oliver Mehta MD 3 month follow up Oliver Mehta MD 3 month follow up Oliver Mehta MD 3 month follow up Oliver Mehta MD 3 month follow up Oliver Mehta MD 3 month follow up Oliver Mehta MD 3 month follow up Oliver Mehta MD 3 month follow up Oliver Mehta MD 3 month follow up Oliver Mehta MD 3 month follow up Oliver Mehta MD hospital follow up: O rders: e Prescribe - Check this box if eRx is used (CPT-G8553) C arotid Duplex Bilateral (CPT-76308) Oliver Mehta MD hospital follow up Oliver Mehta MD hospital follow up: O rders: E KG (CPT-30502) C omplete Echo (CPT-99376) M obile Cardiac Tele (CPT-86351) e Prescribe - Check this box if eRx is used (CPT-G8553) C arotid Duplex Bilateral (CPT-94399) Oliver Mehta MD hospital follow up: O rders: E KG (CPT-35114) C omplete Echo (CPT-66585) M obile Cardiac Tele (CPT-06585) e Prescribe - Check this box if eRx is used (CPT-G8553) C arotid Duplex Bilateral (CPT-80917) Oliver Mehta MD hospital follow up: O rders: E KG (CPT-80460) C omplete Echo (CPT-56700) M obile Cardiac Tele (CPT-15129) Oliver Mehta MD hospital follow up: O rders: E KG (CPT-13147) C omplete Echo (CPT-85034) M obile Cardiac Tele (CPT-19284) Oliver Mehta MD hospital follow up: O rders: E KG (CPT-59573) C omplete Echo (CPT-94359) M obile Cardiac Tele (CPT-71447) e Prescribe - Check this box if eRx is used (CPT-G8553) C arotid Duplex Bilateral (CPT-70858) Oliver Mehta MD hospital follow up: O rders: E KG (CPT-77313) C omplete Echo (CPT-80707) M obile Cardiac Tele (CPT-47628) Oliver Mehta MD hospital follow up: O rders: E KG (CPT-93457) C omplete Echo (CPT-22303) M obile Cardiac Tele (CPT-71097) Oliver Mehta MD hospital follow up: O rders: E KG (CPT-01943) C omplete Echo (CPT-91547) M obile Cardiac Tele (CPT-38486) e Prescribe - Check this box if eRx is used (CPT-G8553) C arotid Duplex Bilateral (CPT-51730) Oliver Mehta MD Date Name Carotid Duplex Bilat eral Mobile Cardiac Tele Complete Echo HISTORY OF PROCEDURES Procedure Date Procedure Name Provider Procedure Notes S tatus ePrescribe - Check t his box if eRx is used Oliver Mehta MD completed EKG Oliver Mehta MD complete d
[2024-04-26 19:41] VITALS: BP 180/100; PULSE 88; RESP 16; TEMP 36.7; O2SAT 100
--- NOTE | 2024-04-26 19:43 | ECG_ITS ---
Test Date: 2024-04-26 22:25:24 Measurements Intervals Isabella Rate: 80 P: 54 NV: 181 QRS: 31 QRSD: 91 T: -7 QT: 416 QTc: 481 Interpretive Statements SINUS RHYTHM WITH SINUS ARRHYTHMIA NONSPECIFIC T-WAVE ABNORMALITY ABNORMAL ECG Electronically Signed On 04-27-2024 12:24:01 CDT by Bassem Choudhary M.D.
[2024-04-26 19:53] LABS: Basophils Absolute Auto 0.1 K/mm3 (0.0-0.1); Basophils Percent Auto 0.7 % (0.2-1.2); Eosinophils Absolute Auto 0.3 K/mm3 (0-0.3); Eosinophils Percent Auto 3.4 % (0-4.4); Hematocrit 38.8 % (37.0-47.0); Hemoglobin 12.6 g/dL (12.0-15.0); Immature Granulocyte Absolute 0.01 K/mm3 (0.00-0.031); Immature Granulocyte Percent A 0.1 % (0-0.5); Lymphocytes Absolute Auto 2.61 K/mm3 (0.9-3.2); Lymphocytes Percent Auto 35.7 % (18.3-44.2); Mean Corpuscular HGB Conc 32.5 g/dl (32-36); Mean Corpuscular Hemoglobin 26.4 pg (26-34); Mean Corpuscular Volume 81.3 fl (80-100); Mean Platelet Volume 9.5 fl (7.4-10.4); Monocytes Absolute Auto 0.5 K/mm3 (0.1-0.6); Monocytes Percent Auto 7.3 % (2.6-8.5); Neutrophils Absolute Auto 3.9 K/mm3 (1.3-6.7); Neutrophils Percent Auto 52.8 % (45.5-73.1); Platelet Count Result 262 k/mm3 (150-375); Red Blood Count 4.77 M/mm3 (4.2-5.4); Red Cell Distribution Width 14.4 % (11.5-14.5); White Blood Count 7.3 K/mm3 (4.5-10.0)
[2024-04-26 20:02] LABS: Alanine Aminotransferase 30 U/L (6-35); Albumin Level 4.5 g/dL (3.5-5.1); Alkaline Phosphatase 50 U/L (38-126); Anion Gap 12 mmol/L (4-12); Aspartate Amino Transferase 24 U/L (14-36); Bilirubin,Total 0.4 mg/dL (0.2-1.3); Blood Urea Nitrogen 16 mg/dL (7-17); Calcium 9.1 mg/dL (8.4-10.2); Carbon Dioxide 25 mmol/L (22-30); Chloride 101 mmol/L (98-107); Estimated Glomerular Filt Rate > 60; Glucose 105 mg/dL (65-110); Potassium 3.9 mmol/L (3.4-5.0); Sodium 138 mmol/L (137-145)
[2024-04-26 20:14] LABS: Troponin I < 0.012 ng/mL (0.000-0.034)
--- OUTSIDE RECORDS SUMMARY | 2024-04-26 21:16 | XMS_ITS | Clinical Summary ---
Author Organization [facility] Address [address] [place] [address] Care Team Providers Care Hospitality Recruiter Name Role Phone Philip Devine MD Primary Care Provider [phone] [facility] Laura Bobby RN Unavailable [phone] Source Comments [facility],non-owned Affiliates and Associated Physician Practices is amultiple site organization consisting of ambulatory clinics and hospital sitesin [place], [place], [place]. This disclosure is being madepursuant to the Care Everywhere program and may not contain all information available regarding this patient. Last updated 17.[facility] Allergies Active Allergy Reactions Criticality Noted Date Comments Chocolate 05/27/2009 [place] Butter 08/15/2013 Tylenol Cold & Flu Severe [...] , limited weight gain is recommended. The [place] of Medicine recommends a total weight gain [...] Instructed to review blood pressures at each Edge Roller visit 1. Reviewed Goal blood pressures <155/95 [...] not relieved with starting caffeine to alert Edge Roller and seek evaluation. Laquita verbalized understanding. Assessment & Plan (08/31/2019 10:41 AM CDT): Blood pressure normotensive today without medication. Asymptomatic for preeclampsia. Reassuring testing AGA growth identified 08/16. Maternal Medicine recommendations: 1. Continue to check blood pressure at home daily 2. Instructed to review blood pressures at each Edge Roller visit 1. Reviewed Goal blood pressures <155/95 [...] Instructed to review blood pressures at each Edge Roller visit 1. Goal blood pressures <155/95 2. [...] Instructed to review blood pressures at each Edge Roller visit 1. Goal blood pressures <155/95 2. [...] prevention of preeclampsia in at risk women ([place] DSR, 2008). 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 Oxygen Saturation 99% 08/17/2019 8:44 AM CDT [...] HIV-2 ANTIBODY (09/12/2009 3:30 PM CDT) Pathologist [facility] HIV-1/HIV-2 Nonreactive Nonreactive [facility] BLOOD SPECIMEN / Unknown 09/12/2009 3:30 PM CDT 09/12/2009 5:20 PM CDT Bobby Yan MD LAB - CHEMISTRY MELISSA LORD [facility] [address] [place] [address] * HEPATITIS C RNA QUANTITATIVE PCR (06/22/2009 3:45 AM CDT) Pathologist [facility] Hepatitis C Virus RNA Log Quantitative <1.6 log IU/ml [facility] Comment Ref Lab [facility] Comment: Comments and Normal Ranges for [...] C RNA Quantitative Not Detected Not Detected [facility] Hepatitis C Virus RNA Quantitative <43 IU/ml [facility] BLOOD SPECIMEN / Unknown 06/22/2009 3:45 AM CDT 06/22/2009 4:07 AM CDT Narrative Resulting Agency Comment Performed By [facility] [address] [place], [place] [address] Sirisha Downs MD LAB - CHEMISTRY MELISSA LORD Performing Organization Address City/State/[facility] Co de Phone Number [facility] [address] [place] [address] from Last 3 Months or Most Recently [...] 6:48 PM 05/08/2009 7:02 AM Care Teams Hospitality Recruiter Relationship Specialty Start Date End Date Philip Devine MD [address] [place] [address] PCP - General Family Medicine 03/03/16 [facility] [place] [address] [address] [place] [address] 03/03/16 Laura Bobby RN Manager Creative 08/16/13
--- OUTSIDE RECORDS SUMMARY | 2024-04-26 21:16 | XMS_ITS | CONTINUITY OF CARE DOCUMENT ---
Author Name antonio alvarez Address Unknown Organization [facility] Address [address] [address] [place] [address] Phone [phone] Care Team Providers Care Neurology Specialist Name Role Phone Tyson ROMERO, Oliver Unavailable [phone] VENANCIO OTERO MD Unavailable VENANCIO OTERO MD Unavailable PROBLEMS Condition Status Date Provider Notes SYNCOPE;NEG [...] In-person encounter Office Visit Oliver Mehta MD [facility] Office SYNCOPE;NEG HOLTER, EVENT REC, ECHO, CAROTID AND TILT 2011OBESITY;CANNOT AFFORD MEDIFASTANEMIA, IRON DEFICIENCY;ON IRONHEPATITIS C;TO SEE SPEICIALISTHYPOALBUMINEMIA;3.1 2010 WITH MILD PROTEINURIA - In-person encounter Office Visit Oliver Mehta MD [facility] Office SYNCOPE;NEG HOLTER, EVENT REC, ECHO, CAROTID [...] Payer name Policy type / Coverage type [facility] AND FAMILY SERVICES Medicaid 9 [id number] TREATMENT PLAN Date Name Performer 3 month [...] is used (CPT-G8553) C arotid Duplex Bilateral (CPT-88767) Oliver Mehta MD hospital follow up Oliver Mehta MD hospital follow up: O rders: E KG (CPT-82544) C omplete Echo (CPT-32109) M obile Cardiac Tele (CPT-27000) e Prescribe - Check this box if eRx is used (CPT-G8553) C arotid Duplex Bilateral (CPT-75452) Oliver Mehta MD hospital follow up: O rders: E KG (CPT-76899) C omplete Echo (CPT-06994) M obile Cardiac Tele (CPT-75659) e Prescribe - Check this box if eRx is used (CPT-G8553) C arotid Duplex Bilateral (CPT-43742) Oliver Mehta MD hospital follow up: O rders: E KG (CPT-00176) C omplete Echo (CPT-38233) M obile Cardiac Tele (CPT-00384) Oliver Mehta MD hospital follow up: O rders: E KG (CPT-51344) C omplete Echo (CPT-91701) M obile Cardiac Tele (CPT-35723) Oliver Mehta MD hospital follow up: O rders: E KG (CPT-90368) C omplete Echo (CPT-81843) M obile Cardiac Tele (CPT-65516) e Prescribe - Check this box if eRx is used (CPT-G8553) C arotid Duplex Bilateral (CPT-53048) Oliver Mehta MD hospital follow up: O rders: E KG (CPT-38001) C omplete Echo (CPT-07987) M obile Cardiac Tele (CPT-43770) Oliver Mehta MD hospital follow up: O rders: E KG (CPT-37074) C omplete Echo (CPT-63540) M obile Cardiac Tele (CPT-12525) Oliver Mehta MD hospital follow up: O rders: E KG (CPT-37121) C omplete Echo (CPT-09716) M obile Cardiac Tele (CPT-84842) e Prescribe - Check this box if eRx is used (CPT-G8553) C arotid Duplex Bilateral (CPT-58529) Oliver Mehta MD Date Name Carotid Duplex Bilat eral Mobile Cardiac Tele Complete Echo HISTORY OF PROCEDURES Procedure Date Procedure Name Provider Procedure Notes S tatus ePrescribe - Check t his box if eRx is used Oliver Mehta MD completed EKG Oliver Mehta MD complete d
--- OUTSIDE RECORDS SUMMARY | 2024-04-26 21:16 | XMS_ITS | Clinical Summary ---
Author Organization [facility] Address [address] [place] [address] Care Team Providers Care Gas Cutting Machine Operator Name Role Phone Maylin Miller MD Primary Care Provider [phone] Allergies Active Allergy Reactions Criticality Noted Date Comments Olivia Butter Hives,Itching,Rash,Swelling Low 2013 Tetanus-Diphtheria Toxoids Td Seizure 08/16/2021 Medications folic acid 1 MG tablet Take 4 mg by mouth daily. Active ondansetron 4 MG tabletIndications :Nausea and vomiting, unspecified vomiting type Take 1 tablet (4 mg total) by mouth every 8 (eight) hours as needed for Nausea. 30 tablet 2 2 Active ( VITAMINS) 28-0.8 MG tabletIndications :11 weeks gestation of ([facility]) Take 1 tablet by mouth daily. 90 [...] (PROCARDIA) 10 MG capsuleIndication s:Chronic hypertension in ([facility]) Take 1 capsule (10 mg total) by mouth 2 (two) times a day. Take if BP >140/90 90 capsule 1 2 Active labetalol (NORMODYNE) 200 MG tabletIndications :Chronic hypertension in ([facility]) TAKE 1 TABLET(200 MG) BY MOUTH TWICE DAILY 180 tablet 3 Active Active Problems Problem Noted Date Diagnosed Date Anxiety 08/16/2021 Arthritis 08/16/2021 Chronic hypertension during ([facility]) 08/16/2021 Overview (08/16/2021): baseline labs [...] Instructed to review blood pressures at each Collar Runner visit 1. Reviewed Goal blood pressures <155/95 [...] not relieved with starting caffeine to alert Collar Runner and seek evaluation. Laquita verbalized understanding. Fatty (change of) liver, not elsewhere classifie d 08/16/2021 GERD (gastroesophageal reflux disease) 2 High cholesterol 08/16/2021 Maternal morbid obesity, antepartum ([facility]) 05/11/2019 Overview (08/16/2021): Last Assessment & Plan: [...] 64) Every 3 Years 1990 PHQ-2 (Physician [place]) 2002 Hepatitis B Vaccines (1 of 3 [...] 2023 Influenza Adult (#1) 2023 PHQ-2 (Physician [place]) 02/10/2024 RSV Immunization or 60+ Years (1 [...] TAYLER 08/16/2021 6:45 PM CDT [facility] Comment: ANTIBODIES TO HCV NOT DETECTED. DOES NOT EXCLUDE THE POSSIBILITY OF EXPOSURE TO HCV. 08/16/2021 7:58 AM CDT Maylin Miller MD LABORATORY Final Result [facility] [address] [place] [address], [id number] from Last 3 Months or Most Recently Relevant to Health Maintenance Insurance [employer] Care Teams Gas Cutting Machine Operator Relationship Specialty Start Date End Date Maylin Miller MD [address] [address] PCP - General INTERNAL MEDICINE 08/16/21
[2024-04-26] MEDS: PROCHLORPERAZINE EDISYLATE 10 MG/2 ML VIAL IV PUSH (21:22)
[2024-04-26] MEDS: SODIUM CHLORIDE 0.9% IV 1,000 ML 999 ML IV CONT (21:22)
[2024-04-26] MEDS: diphenhydrAMINE HCl INJ 50 MG/ML VIAL 25 MG IV PUSH (21:24)
[2024-04-26] MEDS: MECLIZINE HCL 25 MG TABLET PO (22:37)
[2024-04-26 22:42] VITALS: BP 164/87; PULSE 92; RESP 21; O2SAT 99
--- NOTE | 2024-04-26 22:42 | ED.GENADULT ---
HPI - General Adult General Chief complaint: Dizziness Stated complaint: Dizzy, Pain back of head, unsteady gait Time Seen by Provider: 04/26/24 20:49 History of Present Illness HPI narrative: Patient 34-year-old female presents emergency department complaining dizziness. Patient reports he had headache and had pain in her left shoulder area patient states that she has felt a little off balance with this mom felt as though the room was spinning patient states symptoms are not improved by anything patient does report that she has had a headache feels different than her normal migraine Related Data Home Medications ?Medication ?Instructions ?Recorded ?Confirmed ?Last Taken ?Type labetalol 200 mg tablet 200 mg PO BID 05/01/20 05/01/20 02/22/22 04:00 History aspirin 81 mg tablet 81 mg PO DAILY 02/22/22 02/22/22 02/22/22 04:00 History Allergies Allergy/AdvReac Type Severity Reaction Status Date / Time diphtheria,pertussis Allergy Severe Seizure Verified 04/26/24 17:32 (acellular),te (From Adacel(Tdap Adolesn/Adult)(PF)) cocoa butter Allergy Mild Hives Verified 04/26/24 17:32 Review of Systems Review of Systems: A 10 system review of systems was completed on the patient and is negative except for what is stated in the HPI. Nursing and ancillary documentation was reviewed. 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 Mother Tachycardia Thyroid cancer Grandparent Cerebrovascular accident Hypertension Kidney failure Thyroid cancer Heart disease Depression Son Asthma ADD (attention deficit disorder) Depression Social History Social History Social History: Surrogate decision maker: Chris Matias, . Code status: Full code. Smoking status: Never smoker Second hand tobacco smoke exposure: No Alcohol intake: never Substance use: never Substance use type: marijuana Lack of Transportation: No Lack of Food: Never True Current Housing: I Have Housing Concerned About Future Housing: No Difficulty Paying Gas/Electric Bills: No Difficulty Paying for Meds: No Currently Unemployed: No Education: High School Diploma/GED Difficulty w/ Childcare or Family Care: No Living arrangements: with family Additional living arrangements comments: Lives in [place] with her and 3 children. 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 Now a [id number] mom. Gender identity (if verbalized by the patient): Female Sexual Orientation (if Verbalized by the Patient): Straight or Heterosexual Spiritual care concerns: No Agree to blood products: Yes Exam Narrative: GENERAL: Well-appearing, well-nourished, and in no acute distress. HEAD: Normocephalic, atraumatic. EYES: PERRLA and EOMI. ENT: Nares clear, no rhinorrhea or epistaxis. Mucous membranes moist. NECK: Supple. CHEST: Clear to auscultation. No respiratory distress. HEART: Regular rate and rhythm. No murmur heard. Normal peripheral pulses. ABDOMEN: Soft, nontender, nondistended, normal active bowel sounds. EXTREMITIES: Normal range of motion. No edema. SKIN: Warm, dry, no rash. NEURO: No focal deficits. Alert and oriented x3. PSYCH: Normal mood and affect. Course Vital Signs Vital signs: Vital Signs Temperature 36.5 C 04/26/24 17:37 Pulse Rate 96 04/26/24 17:37 Respiratory Rate 16 04/26/24 17:37 Blood Pressure 158/106 H 04/26/24 17:37 Pulse Oximetry 100 04/26/24 17:37 Temperature 36.7 C 04/26/24 19:41 Pulse Rate 88 04/26/24 19:41 Respiratory Rate 16 04/26/24 19:41 Blood Pressure 180/100 H 04/26/24 19:41 Pulse Oximetry 100 04/26/24 19:41 Medical Decision Making MDM Narrative Medical decision making narrative: Differential diagnosis includes vertigo, migraine headache, atypical Migraine, laboratory studies were obtained on the patient showed a normal CBC normal CMP EKG showed no acute ischemic Changes initial troponin was negative CT head showed no acute abnormality Chest x-ray showed no focal infiltrate Patient received IV fluids antiemetics Benadryl is feeling much better the patient still had some residual vertiginous symptoms that were improved with meclizine. The patient will be discharged home with a prescription for Zofran and meclizine the patient should follow-up with her primary care provider if she develops worsening symptoms she should return to the emergency department for re-evaluation Vital Signs Vital Signs: Vital Signs Temperature 36.5 C 04/26/24 17:37 Pulse Rate 96 04/26/24 17:37 Respiratory Rate 16 04/26/24 17:37 Blood Pressure 158/106 H 04/26/24 17:37 Pulse Oximetry 100 04/26/24 17:37 Temperature 36.7 C 04/26/24 19:41 Pulse Rate 88 04/26/24 19:41 Respiratory Rate 16 04/26/24 19:41 Blood Pressure 180/100 H 04/26/24 19:41 Pulse Oximetry 100 04/26/24 19:41 Lab Data 04/26/24 19:46 04/26/24 19:46 Labs: Lab Results 04/26/24 04/26/24 04/26/24 Range/Units 19:46 19:46 19:46 WBC 7.3 (4.5-10.0) K/mm3 RBC 4.77 (4.2-5.4) M/mm3 Hgb 12.6 (12.0-15.0) g/dL Hct 38.8 (37.0-47.0) % MCV 81.3 (80-100) fl MCH 26.4 (26-34) pg MCHC 32.5 (32-36) g/dl RDW 14.4 (11.5-14.5) % Plt Count 262 (150-375) k/mm3 MPV 9.5 (7.4-10.4) fl Immature Gran % (Auto) 0.1 (0-0.5) % Neut % (Auto) 52.8 (45.5-73.1) % Lymph % (Auto) 35.7 (18.3-44.2) % [place] % (Auto) 7.3 (2.6-8.5) % Eos % (Auto) 3.4 (0-4.4) % Baso % (Auto) 0.7 (0.2-1.2) % Lymph # (Auto) 2.61 (0.9-3.2) K/mm3 [place] # (Auto) 0.5 (0.1-0.6) K/mm3 Eos # (Auto) 0.3 (0-0.3) K/mm3 Baso # (Auto) 0.1 (0.0-0.1) K/mm3 Abs Immat Gran (auto) 0.01 (0.00-0.031) K/mm3 Absolute Neuts (auto) 3.9 (1.3-6.7) K/mm3 Absolute Nucleated RBC 0.000 (0.0-0.012) K/mm3 Nucleated RBC % 0.0 (0.0-0.2) % Sodium 138 Cancelled (137-145) mmol/L Potassium 3.9 Cancelled (3.4-5.0) mmol/L Chloride 101 (98-107) mmol/L Carbon Dioxide (22-30) mmol/L Anion Gap (4-12) mmol/L BUN (7-17) mg/dL Creatinine (0.7-1.0) mg/dL Estim Creat Clear Calc Estimated GFR (59 - ) Glucose (65-110) mg/dL Calcium (8.4-10.2) mg/dL Total Bilirubin (0.2-1.3) mg/dL AST (14-36) U/L ALT (6-35) U/L Alkaline Phosphatase (38-126) U/L Troponin I (0.000-0.034) ng/mL Total Protein (6.3-8.2) g/dL Albumin (3.5-5.1) g/dL 04/26/24 04/26/24 04/26/24 Range/Units 19:46 19:46 19:46 WBC (4.5-10.0) K/mm3 RBC (4.2-5.4) M/mm3 Hgb (12.0-15.0) g/dL Hct (37.0-47.0) % MCV (80-100) fl MCH (26-34) pg MCHC (32-36) g/dl RDW (11.5-14.5) % Plt Count (150-375) k/mm3 MPV (7.4-10.4) fl Immature Gran % (Auto) (0-0.5) % Neut % (Auto) (45.5-73.1) % Lymph % (Auto) (18.3-44.2) % [place] % (Auto) (2.6-8.5) % Eos % (Auto) (0-4.4) % Baso % (Auto) (0.2-1.2) % Lymph # (Auto) (0.9-3.2) K/mm3 [place] # (Auto) (0.1-0.6) K/mm3 Eos # (Auto) (0-0.3) K/mm3 Baso # (Auto) (0.0-0.1) K/mm3 Abs Immat Gran (auto) (0.00-0.031) K/mm3 Absolute Neuts (auto) (1.3-6.7) K/mm3 Absolute Nucleated RBC (0.0-0.012) K/mm3 Nucleated RBC % (0.0-0.2) % Sodium (137-145) mmol/L Potassium (3.4-5.0) mmol/L Chloride Cancelled (98-107) mmol/L Carbon Dioxide 25 Cancelled (22-30) mmol/L Anion Gap 12 Cancelled (4-12) mmol/L BUN 16 (7-17) mg/dL Creatinine (0.7-1.0) mg/dL Estim Creat Clear Calc Estimated GFR (59 - ) Glucose (65-110) mg/dL Calcium (8.4-10.2) mg/dL Total Bilirubin (0.2-1.3) mg/dL AST (14-36) U/L ALT (6-35) U/L Alkaline Phosphatase (38-126) U/L Troponin I (0.000-0.034) ng/mL Total Protein (6.3-8.2) g/dL Albumin (3.5-5.1) g/dL 04/26/24 04/26/24 04/26/24 Range/Units 19:46 19:46 19:46 WBC (4.5-10.0) K/mm3 RBC (4.2-5.4) M/mm3 Hgb (12.0-15.0) g/dL Hct (37.0-47.0) % MCV (80-100) fl MCH (26-34) pg MCHC (32-36) g/dl RDW (11.5-14.5) % Plt Count (150-375) k/mm3 MPV (7.4-10.4) fl Immature Gran % (Auto) (0-0.5) % Neut % (Auto) (45.5-73.1) % Lymph % (Auto) (18.3-44.2) % [place] % (Auto) (2.6-8.5) % Eos % (Auto) (0-4.4) % Baso % (Auto) (0.2-1.2) % Lymph # (Auto) (0.9-3.2) K/mm3 [place] # (Auto) (0.1-0.6) K/mm3 Eos # (Auto) (0-0.3) K/mm3 Baso # (Auto) (0.0-0.1) K/mm3 Abs Immat Gran (auto) (0.00-0.031) K/mm3 Absolute Neuts (auto) (1.3-6.7) K/mm3 Absolute Nucleated RBC (0.0-0.012) K/mm3 Nucleated RBC % (0.0-0.2) % Sodium (137-145) mmol/L Potassium (3.4-5.0) mmol/L Chloride (98-107) mmol/L Carbon Dioxide (22-30) mmol/L Anion Gap (4-12) mmol/L BUN Cancelled (7-17) mg/dL Creatinine 0.57 L Cancelled (0.7-1.0) mg/dL Estim Creat Clear Calc Not Reportable Cancelled Estimated GFR > 60 (59 - ) Glucose (65-110) mg/dL Calcium (8.4-10.2) mg/dL Total Bilirubin (0.2-1.3) mg/dL AST (14-36) U/L ALT (6-35) U/L Alkaline Phosphatase (38-126) U/L Troponin I (0.000-0.034) ng/mL Total Protein (6.3-8.2) g/dL Albumin (3.5-5.1) g/dL 04/26/24 04/26/2425 Range/Units 19:46 19:46 19:46 WBC (4.5-10.0) K/mm3 RBC (4.2-5.4) M/mm3 Hgb (12.0-15.0) g/dL Hct (37.0-47.0) % MCV (80-100) fl MCH (26-34) pg MCHC (32-36) g/dl RDW (11.5-14.5) % Plt Count (150-375) k/mm3 MPV (7.4-10.4) fl Immature Gran % (Auto) (0-0.5) % Neut % (Auto) (45.5-73.1) % Lymph % (Auto) (18.3-44.2) % [place] % (Auto) (2.6-8.5) % Eos % (Auto) (0-4.4) % Baso % (Auto) (0.2-1.2) % Lymph # (Auto) (0.9-3.2) K/mm3 [place] # (Auto) (0.1-0.6) K/mm3 Eos # (Auto) (0-0.3) K/mm3 Baso # (Auto) (0.0-0.1) K/mm3 Abs Immat Gran (auto) (0.00-0.031) K/mm3 Absolute Neuts (auto) (1.3-6.7) K/mm3 Absolute Nucleated RBC (0.0-0.012) K/mm3 Nucleated RBC % (0.0-0.2) % Sodium (137-145) mmol/L Potassium (3.4-5.0) mmol/L Chloride (98-107) mmol/L Carbon Dioxide (22-30) mmol/L Anion Gap (4-12) mmol/L BUN (7-17) mg/dL Creatinine (0.7-1.0) mg/dL Estim Creat Clear Calc Estimated GFR Cancelled (59 - ) Glucose 105 Cancelled (65-110) mg/dL Calcium 9.1 Cancelled (8.4-10.2) mg/dL Total Bilirubin 0.4 (0.2-1.3) mg/dL AST (14-36) U/L ALT (6-35) U/L Alkaline Phosphatase (38-126) U/L Troponin I (0.000-0.034) ng/mL Total Protein (6.3-8.2) g/dL Albumin (3.5-5.1) g/dL 04/26/24 04/26/24 04/26/24 Range/Units 19:46 19:46 19:46 WBC (4.5-10.0) K/mm3 RBC (4.2-5.4) M/mm3 Hgb (12.0-15.0) g/dL Hct (37.0-47.0) % MCV (80-100) fl MCH (26-34) pg MCHC (32-36) g/dl RDW (11.5-14.5) % Plt Count (150-375) k/mm3 MPV (7.4-10.4) fl Immature Gran % (Auto) (0-0.5) % Neut % (Auto) (45.5-73.1) % Lymph % (Auto) (18.3-44.2) % [place] % (Auto) (2.6-8.5) % Eos % (Auto) (0-4.4) % Baso % (Auto) (0.2-1.2) % Lymph # (Auto) (0.9-3.2) K/mm3 [place] # (Auto) (0.1-0.6) K/mm3 Eos # (Auto) (0-0.3) K/mm3 Baso # (Auto) (0.0-0.1) K/mm3 Abs Immat Gran (auto) (0.00-0.031) K/mm3 Absolute Neuts (auto) (1.3-6.7) K/mm3 Absolute Nucleated RBC (0.0-0.012) K/mm3 Nucleated RBC % (0.0-0.2) % Sodium (137-145) mmol/L Potassium (3.4-5.0) mmol/L Chloride (98-107) mmol/L Carbon Dioxide (22-30) mmol/L Anion Gap (4-12) mmol/L BUN (7-17) mg/dL Creatinine (0.7-1.0) mg/dL Estim Creat Clear Calc Estimated GFR (59 - ) Glucose (65-110) mg/dL Calcium (8.4-10.2) mg/dL Total Bilirubin Cancelled (0.2-1.3) mg/dL AST 24 Cancelled (14-36) U/L ALT 30 Cancelled (6-35) U/L Alkaline Phosphatase 50 (38-126) U/L Troponin I (0.000-0.034) ng/mL Total Protein (6.3-8.2) g/dL Albumin (3.5-5.1) g/dL 04/26/24 04/26/24 04/26/24 Range/Units 19:46 19:46 19:46 WBC (4.5-10.0) K/mm3 RBC (4.2-5.4) M/mm3 Hgb (12.0-15.0) g/dL Hct (37.0-47.0) % MCV (80-100) fl MCH (26-34) pg MCHC (32-36) g/dl RDW (11.5-14.5) % Plt Count (150-375) k/mm3 MPV (7.4-10.4) fl Immature Gran % (Auto) (0-0.5) % Neut % (Auto) (45.5-73.1) % Lymph % (Auto) (18.3-44.2) % [place] % (Auto) (2.6-8.5) % Eos % (Auto) (0-4.4) % Baso % (Auto) (0.2-1.2) % Lymph # (Auto) (0.9-3.2) K/mm3 [place] # (Auto) (0.1-0.6) K/mm3 Eos # (Auto) (0-0.3) K/mm3 Baso # (Auto) (0.0-0.1) K/mm3 Abs Immat Gran (auto) (0.00-0.031) K/mm3 Absolute Neuts (auto) (1.3-6.7) K/mm3 Absolute Nucleated RBC (0.0-0.012) K/mm3 Nucleated RBC % (0.0-0.2) % Sodium (137-145) mmol/L Potassium (3.4-5.0) mmol/L Chloride (98-107) mmol/L Carbon Dioxide (22-30) mmol/L Anion Gap (4-12) mmol/L BUN (7-17) mg/dL Creatinine (0.7-1.0) mg/dL Estim Creat Clear Calc Estimated GFR (59 - ) Glucose (65-110) mg/dL Calcium (8.4-10.2) mg/dL Total Bilirubin (0.2-1.3) mg/dL AST (14-36) U/L ALT (6-35) U/L Alkaline Phosphatase Cancelled (38-126) U/L Troponin I < 0.012 (0.000-0.034) ng/mL Total Protein 8.0 Cancelled (6.3-8.2) g/dL Albumin 4.5 Cancelled (3.5-5.1) g/dL Discharge Plan Discharge Clinical Impression: Vertigo, Headache Patient Disposition: Home, Self-Care Condition: Stable Instructions: Antibiotic Form, Vertigo (ED), Acute Headache (ED), Dizziness (ED) Patient Language: Georgian Prescriptions: New meclizine [Antivert] 50 mg tablet 50 mg PO BID PRN (Reason: dizziness) Qty: 20 0RF ondansetron 4 mg tablet,disintegrating 4 mg PO Q8H PRN (Reason: nausea and vomiting) Qty: 10 0RF No Action PNV cmb#[id number] fumarate-FA [] 28 mg iron- 800 mcg tablet 1 tablet PO DAILY Qty: 100 3RF labetalol 200 mg tablet 200 mg PO BID aspirin 81 mg Tablet 81 mg PO DAILY clindamycin HCl 300 mg capsule 300 mg PO Q6H 7 Days Qty: 28 0RF hydrocodone-acetaminophen 5-325 mg tablet 1 tablet PO Q8H PRN (Reason: pain) Qty: 14 0RF Follow-up/Referrals: Stan Lambert MD [Physician] - UNKNOWN,DOCTOR [Primary Care Provider] - Time of Disposition: 22:46
[2024-04-26 23:10] VITALS: PULSE 85
[2024-04-26 23:11] VITALS: BP 147/75; PULSE 83; RESP 16; O2SAT 97
[2024-04-26 23:18] VITALS: BP 147/75; PULSE 83; RESP 16; O2SAT 97
== END 2024-04-26 23:20 | disposition home or self-care (01) ==
PROVIDERS: Emergency Provider Emergency Medicine
DX: R42 Dizziness and giddiness (principal); R51.9 Headache, unspecified; K76.0 Fatty (change of) liver, not elsewhere classified; F32.A Depression, unspecified; K21.9 Gastro-esophageal reflux disease without esophagitis; F41.9 Anxiety disorder, unspecified; I10 Essential (primary) hypertension
CPT/HCPCS: 36415; 70450; 71046; 80053; 84484; 85025; 93005; 96361; 96374; 96375; 99284; A9270; J0780; J1200; J7030

== ENCOUNTER 2024-10-16 08:38 | Emergency (ER) | payer OTHER, SELFPAY ==
--- OUTSIDE RECORDS SUMMARY | 2024-10-16 08:41 | XMS_ITS | Clinical Summary ---
Author Organization [facility] Address [address] [address] Care Team Providers Care Metal Hanger Name Role Phone Philip Devine MD Primary Care Provider [phone] [facility] Unavailab le Laura Bobby RN Unavailable [phone] Source Comments [facility],non-owned Affiliates and Associated Physician Practices is amultiple site organization consisting of ambulatory clinics and hospital sitesin [place], [place], [place] and [place]. This disclosure is being madepursuant to the Care Everywhere program and may not contain all information available regarding this patient. 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 Medications * This document contains information received from the source organization and may not represent a complete record from that organization. * Be aware that medications may not be up to date on this document. Alwaysverify current medications with the patient. ondansetron (ZOFRAN) 4 MG tablet Take 1 Tab by mouth every 4 hours as needed for Nausea/Vomiting. 10 Tab 0 04/12/19 14 Active Vit-Fe Fumarate-FA ( VITAMIN) 28-0.8 MG tablet Take 1 (one) tablet by mouth once daily Active aspirin (ASPIRIN) 81 MG chew tabletIndicati ons:preeclamps ia prevention Take 2 tablets by mouth once daily Reasons: preeclampsia prevention 120 tablet 11 05/11/19 20 Active fluticasone propionate (Flonase) 50 MCG/ACT nasal sprayIndicatio ns:Allergic Rhinitis,Nasal Congestion [place] 2 (two) sprays into each nostril once daily Reasons: Allergic Rhinitis, Stuffy Nose Active cetirizine (ZyrTEC) 10 MG tabletIndicati ons:Seasonal Allergic Rhinitis Take 1 (one) tablet by mouth once daily Reasons: Hayfever Active labetalol (Normodyne; Trandate) 200 MG tablet Take 2 (two) tablets by mouth 2 times daily Active insulin NPH pen Prime needle with 2 units waste, then inject 22 units every night. Increase dose as directed due to increasing insulin requirements during . Max total daily dose = 50u. 15 mL 6 10/15/19 25 Active Multiple Vitamins-Calci um (DAILY VITAMINS FOR WOMEN PO) Take by mouth. 025 Discontin ued(List Clean-Up) buPROPion XL 24hr (WELLBUTRIN-XL ) 150 MG tablet Take 1 (one) tablet by mouth once daily 025 Discontin ued(List Clean-Up) mebendazole (VERMOX) 100 MG chew tablet Chew 1 tab by mouth. Repeat in 2 weeks if symptoms continue. 2 Tab 0 04/12/19 14 025 Discontin ued(List Clean-Up) amLODIPine (NORVASC) 5 MG tablet Take 1 Tab by mouth once daily. 30 Tab 0 08/20/19 14 025 Discontin ued(List Clean-Up) ciprofloxacin- dexamethasone (CIPRODEX) 0.3-0.1 % otic suspension Instill 4 Drops into right ear 2 times daily. Shake well before using. 1 Bottle 0 08/20/19 14 025 Discontin ued(List Clean-Up) predniSONE (DELTASONE) 20 MG tablet Take 2 Tabs by mouth once daily. 10 Tab 0 11/07/19 14 025 Discontin ued(List Clean-Up) famotidine (PEPCID) 20 MG tablet Take 1 Tab by mouth 2 times daily. 20 Tab 0 11/07/19 14 08/29/2 025 Discontin ued(List Clean-Up) diphenhydrAMIN E (BENADRYL) 25 MG capsule Take 1 Cap by mouth every 4 hours as needed for Itching. 20 Cap 0 11/07/19 14 Discontin ued(List Clean-Up) ketorolac (TORADOL) 10 MG tablet Take 1 Tab by mouth every 6 hours as needed for Pain. 20 Tab 0 05/20/19 15 Discontin ued(List Clean-Up) ibuprofen (MOTRIN) 600 MG tablet Take 1 Tab by mouth every 6 hours as needed for Pain 20 Tab 0 11/01/19 15 Discontin ued(List Clean-Up) loratadine (CLARITIN) 10 MG tablet Take 1 Tab by mouth once daily 30 Tab 0 11/01/19 15 Discontin ued(List Clean-Up) guaifenesin ER 12hr (MUCINEX) 600 MG tablet Take 1 Tab by mouth every 12 hours 30 Tab 0 11/01/19 15 Discontin ued(List Clean-Up) hydrocodone-ac etaminophen (NORCO) 5-325 MG tablet Take 1 Tab by mouth every 4 hours as needed for Pain 15 Tab 0 04/05/19 16 Discontin ued(List Clean-Up) ondansetron, disintegrating , (ZOFRAN ODT) 4 MG tablet Take 1 Tab by mouth every 6 hours as needed for Nausea/Vomiting Allow tablet to dissolve on the tongue 20 Tab 0 04/05/19 16 Discontin ued(List Clean-Up) cyclobenzaprin e (FLEXERIL) 10 MG tablet Take 1 (one) tablet by mouth 3 times daily as needed for Muscle Spasms Discontin ued(List Clean-Up) progesterone micronized (PROMETRIUM) 100 MG capsule Take 1 (one) capsule by mouth 2 times daily Discontin ued(List Clean-Up) folic acid (FOLVITE) 1 MG tablet Take 4 (four) tablets by mouth once daily Discontin ued(List Clean-Up) riboflavin 100 MG tabletIndicati ons:Prevention of Headaches Take 4 tablets by mouth once daily Reasons: Headache Prophylaxis 120 tablet 11 08/31/19 20 025 Discontin ued(List Clean-Up) insulin NPH (HumuLIN N; NovoLIN N) vial Inject 8 (eight) Units subcutaneously at bedtime 025 Discontin ued(List Clean-Up) Active Problems Problem Noted Date Diagnosed Date BMI 30.0-30.9,adult 10/07/2024 Prediabetes in mother during (HCC): HgbA1C 6.0 on 09/07/24 10/07/2024 Antepartum multigravida of advanced maternal age : 35 at JD 10/07/2024 Maternal morbid obesity, antepartum 05/11/2019 Assessment & [...] , limited weight gain is recommended. The [place] of Medicine recommends a total weight gain [...] Instructed to review blood pressures at each Reagent Tender visit 1. Reviewed Goal blood pressures <155/95 [...] not relieved with starting caffeine to alert Reagent Tender and seek evaluation. Kiesha verbalized understanding. Assessment & Plan (08/31/2019 10:41 AM CDT): Blood pressure normotensive today without medication. Asymptomatic for preeclampsia. Reassuring testing AGA growth identified 08/16. Maternal Medicine recommendations: 1. Continue to check blood pressure at home daily 2. Instructed to review blood pressures at each Reagent Tender visit 1. Reviewed Goal blood pressures <155/95 [...] Instructed to review blood pressures at each Reagent Tender visit 1. Goal blood pressures <155/95 2. [...] Instructed to review blood pressures at each Reagent Tender visit 1. Goal blood pressures <155/95 2. [...] prevention of preeclampsia in at risk women ([place] DSR, 2008). There is no significant risk [...] today 2. Instructed to sign up to [employer] and send blood pressure logs weekly for [...] Estimated Date of Delivery Comme nts Yes 04/04/2025 Based on Ultraso und Resolved Problems Problem Noted Date Diagnosed Date [...] syncope 06/21/2009 05/11/2019 1st trimester screening 05/04/2009 04/0 02/2019 Abdominal pain in 04/19/2009 11/08/2009 Syncope [...] 05/11/2019 Overview (09/20/2009): Lives with mother. Fuctional Encounters Date Type Department Care Team Description 10/14/2024 Telephone [facility] [address], [place] [id number] Louisa Rico RN Update (Called patient after receiving my chart message with blood sugars to review details and make sure she was feeling okay. ) 10/05/2024 8:49 AM CDT - 10/05/2024 11:59 PM CDT Hospital Encounter [facility] [address] [place] [address] Jumana Tirado MD Discharge Disposition: Home or Self Care 10/05/2024 8:48 AM CDT Hospital Encounter [facility] [address] [place] [address] Jumana Tirado MD Discharge Disposition: Home or Self Care from Last 3 Months Immunizations Immunization Administration Dates Next Due TDAP (7yrs+) 11/24/2009 [...] Packs/Day Years Used Date Smoking Tobacco: Never Smokeless Tobacco: Never Tobacco Cessation:Counseling Given: Not Answered Alcohol Use Standard Drinks/Week Comments No 0 (1 standard drink = 0.6 oz pur e alcohol) Estimated Date of Delivery Comme nts Yes 04/04/2025 Based on Ultraso und Sex and Gender Information Value Date Recorded Sex Assigned at Not on file 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 Gender Identity Not on file Sexual Orientation Not on file Last Filed Vital Signs Vital Sign Reading Time Taken Comments Blood Pressure 149/72 10/05/2024 9:28 AM CDT Pulse 89 10/05/2024 9:28 AM CDT Temperature 36.1 C (97 F) 10/12/2019 2:53 PM CDT Respiratory Rate 16 03/03/2016 10:35 AM CHIMNEY MECHANIC Oxygen Saturation 99% 08/17/2019 8:44 AM CDT Inhaled Oxygen Concentration - - Weight 134.7 kg (297 lb) 10/05/2024 9:28 AM CDT Height 170.2 cm (5' 7) 10/05/2024 9:28 AM CDT Body Mass Index 46.52 10/05/2024 9:28 AM CDT Plan of Treatment Upcoming Encounters Date Type Department Care Team (Late st Contact Info) Description 11/02/2024 9:45 AM CDT Appointment [facility] [address] [phone] Health Maintenance Due Date Last Done Comments HEPATITIS B VACCINE (1 of 3 - 19+ 3-dose series) 2009 PAP SMEAR 2011 HPV VACCINE (1 - 3-dose SCDM series) 2017 DTAP/TDAP/TD VACCINES (2 - Td or Tdap) 11/25/2019 11/24/2009 DEPRESSION SCREENING 02/10/2024 COVID-19 VACCINE (1 - season) 2024 INFLUENZA VACCINE (#1) 2024 11/17/2012, 2010 OB-ONE HOUR GLUCOSE 12/27/2024 12/16/2021, 11/15/2009, 09/12/2009 OB-TDAP CURRENT 01/03/20252019, 10/26/2017, 12/13/2010, Additional history exists Respiratory Syncytial Virus (RSV) Vaccine Pt: or over 60 yrs (1 - Risk 1-dose series) 02/07/2025 OB-GROUP B STREP SCREEN 02/28/2025 02/14/2022, 11/01 ZOSTER VACCINE (1 of 2) 01/21/2040 HEPATITIS C SCREENING Completed 09/07/2024 , 08/16/2021, 05/11/2019, Additional history exists HIV SCREENING Completed 09/07/2024, 08/2021, 09/12/2009, Additional history exists HIB VACCINE Aged Out [...] Procedure Name Priority Date/Time Associated Diagnosis Comments SONOGRAM - COMPLETE Routine 10/05/2024 8 :56 AM CDT Elevated hemoglobin A1c Chronic hypertension affecting (HCC) Maternal morbid obesity, antepartum (HCC) GLUCOSE CHALLENGE Routine 11/15/2009 10: 35 AM CDT CULTURE STREP B Routine 11/01/2009 9:50 AM CDT HIV-1 HIV-2 ANTIBODY Today 09/12/2009 3:30 PM CDT Suprv High-Risk Preg NEC HEPATITIS C RNA QUANTITATIVE STAT 06/22/2009 3:45 AM CDT Orthostatic Hypotension from Last 3 Months or Most Recently Relevant to Health Maintenance Results * Sonogram - Complete (10/05/2024 8:56 AM CDT) Linked Results Indication ======== Pre-existing essential hypertension complicating , Essential (primary) hypertension Gestational diabetes mellitus in , unspecified control HgA1C 6.0 on 09/07 Obesity complicating , Class 3 - BMI of 40.0 or greater History ====== OB History 5. Para 4 [id number] 1. live 2009. Gest. age 39 w + 2 d. Weight 3,317 g. Sex of child: male. Details: Vaginal delivery; Poly, CHTN 2. live 2017. Gest. age 37 w + 5 d. Weight 3,260 g. Sex of child: male. Details: Vaginal delivery; CHTN; IOL Decreased Movement 3. live 2019. Gest. age 37 w + 0 d. Weight 3,997 g. Sex of child: female. Details: Vaginal delivery; CHTN 4. live 2022. Gest. age 38 w + 0 d. Weight 3,770 g. Sex of child: female. Details: Vaginal delivery; CHTN Lab Tests Test Date Result NIPT Low risk, Male Maternal Assessment Physical Exam Height 163 cm, 5 ft 4 in. Weight 135 kg, 297 lb. Initial weight 136 kg, 300 lb. BMI 50.98 kg/m . Initial BMI 51.50 kg/m . Weight gain -1 kg, -3 lb Method ====== Transabdominal ultrasound. View: Sufficient ========= [place] . Number of fetuses: 1 Dating ====== Date Details Gest. age JD Stated JD 14 w + 1 d 04/04/2025 U/S 10/05/2024 based upon AC, BPD, Femur, HC 14 w + 5 d 03/31/2025 Assigned dating based on stated JD, selected on 10/05/2024 14 w + 1 d 04/04/2025 General Evaluation Cardiac activity present. FHR 154 bpm. Presentation: breech Placenta: Placental site: posterior Umbilical cord: Cord vessels: 3 vessel cord. Insertion site: normal insertion Amniotic fluid: Amount of AF: normal. MVP 4.6 cm Biometry BPD 27.5 mm 14w 6d 75% Hadlock HC 108.2 mm 15w 1d 83% Hadlock AC 85.5 mm 14w 6d 79% Hadlock Femur 13.6 mm 14w 0d 38% Hadlock HC / AC 1.27 -/- 79% Hadlock Weight Calculation: EFW 99 g 58% Hadlock EFW (lb,oz) 0 lb 3 oz EFW by Hadlock (LNN-VP-PV-FL) appropriate Growth Overview Exam date GA BPD (mm) HC (mm) AC (mm) FL (mm) HL (mm) EFW (g) 10/05/2024 14w 1d 27.5 75% 108.2 83% 85.5 79% 13.6 38% 99 58% Anatomy The following structures appear normal: Head / Neck Cranium. Choroid plexus. Abdomen Cord insertion. Stomach. Bladder. Extremities / Skeleton Arms. Legs. The following structures could not be adequately visualized: Abdomen Kidneys. Maternal Structures Right Ovary Not visualized Appearance: Adnexa appears normal Left Ovary Not visualized Appearance: Adnexa appears normal Impression ========= Single, live, intrauterine at 14w 1d The size is appropriate. The amniotic fluid volume is normal. No major malformations were seen within the limitations of ultrasound at this early gestational age. Follow-up ======== Please see separate MFM visit note. 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 Coding ====== Diagnoses O99.212, E66.813: Obesity complicating , Class 3 - BMI of 40.0 or greater O24.419: Gestational diabetes mellitus in , unspecified control O10.012, I10: Pre-existing essential hypertension complicating , Essential (primary) hypertension Procedures 27354: US Preg Uterus >14 weeks [facility] Cubito PACS Anatomical Region Laterality Modality Other 10/05/2024 8:56 AM CDT Jaz Clark APRN-LEAD ELECTRICIAN MFM ORDERABLES Edited Result - Final * GLUCOSE CHALLENGE (11/15/2009 10:35 AM CDT) Glucose Challenge 105 mg/dl [facility] Glucose Challenge Time 1035 [facility] BLOOD SPECIMEN / Unknown 11/15/2009 10:35 AM CDT 11/15/2009 10:58 AM CDT Caridad Tello MD LAB - CHEMISTRY ORDERABLES Final Result Performing Organization Address City/[facility] Co de Phone Number [facility] [address] [place] [address] * CULTURE STREP B (11/01/2009 9:50 AM CDT) Report [facility] Comment: Final - CULTURE No Group B Beta Strep isolated ENTIRE ENDOCERVIX / Unknown 11/01/2009 9:50 AM CDT 11/01/2009 11:59 AM CDT Alisha Anderson MD LAB - MICROBIOLOGY ORDERABLES F inal Result Performing Organization Address City/[facility] Co de Phone Number [facility] [address] [place] [phone] * HIV-1 HIV-2 ANTIBODY (09/12/2009 3:30 PM CDT) Pathologist [facility] HIV-1/HIV-2 Nonreactive Nonreactive [facility] BLOOD SPECIMEN / Unknown 09/12/2009 3:30 PM CDT 09/12/2009 5:20 PM CDT us Bobby Yan MD LAB - CHEMISTRY ORDERABLES Nikkie l Result Performing Organization Address [facility] Co de Phone Number [facility] [address] [place] [phone] * HEPATITIS C RNA QUANTITATIVE PCR (06/22/2009 3:45 AM CDT) [facility] Hepatitis C Virus RNA Log Quantitative <1.6 log IU/ml [facility] Comment Ref Lab [facility] Comment: Comments and Normal Ranges [...] C RNA Quantitative Not Detected Not Detected [facility] Hepatitis C Virus RNA Quantitative <43 IU/ml [facility] BLOOD SPECIMEN / Unknown 06/22/2009 3:45 AM CDT 06/22/2009 4:07 AM CDT Narrative Resulting Agency Comment Performed By [employer] [address] us Sirisha Downs MD LAB - CHEMISTRY ORDERABLES Final Result Performing Organization Address City/[facility]/ZIP Co de Phone Number [facility] [address] [place] [phone] from Last 3 Months or Most Recently Relevant to Health Maintenance Insurance [facility] [place] Member Subscriber Plan / Payer (Ef fective for All Dates) Name:Kiesha Leahy Relation to Subscriber:Self Name:KIESHA LEAHY Payer ID:Not on file Group ID:Not on file Type:Medicaid [place] Address: [address] Member Subscriber Plan / Payer (Ef fective for All Dates) Name:Kiesha Leahy Relation to Subscriber:Self Name:KIESHA LEAHY Payer ID:Not on file Group ID:Not on file Type:Medicaid [place] Address: [address] Advance Directives * Full Code (Latest Code [...] 6:48 PM 05/08/2009 7:02 AM Care Teams Metal Hanger Relationship Specialty Start Date End Date Philip Devine MD [address] [place] [phone] PCP - General Family Medicine 03/03/[address] [place] [address] 03/03/16 Laura Bobby RN Yardage Caller 08/16/13
--- OUTSIDE RECORDS SUMMARY | 2024-10-16 08:41 | XMS_ITS | Patient Health Record ---
Author Organization [facility] Address [address] [facility] [address] [place], [place] [id number] Care Team Providers Care Ekg/Ecg Technician Name Role Phone Madhav Cortez Unavailable [phone] Reason For Referral No Information Plan Of Treatment No Information
[2024-10-16 08:45] VITALS: BP 159/96; PULSE 83; RESP 20; TEMP 36.6; O2SAT 99
[2024-10-16] MEDS: BELLADONNA ALK/PHENOB ELIX 10 ML, MAG HYDROX/ALUMINUM HYD/SIMETH 30 ML, LIDOCAINE 2% VI... PO (09:08)
[2024-10-16] MEDS: PANTOPRAZOLE SODIUM IV 40 MG VIAL IV PUSH (09:17)
--- NOTE | 2024-10-16 09:29 | ED.GENADULT ---
HPI - General Adult General Chief complaint: Abdominal Pain Stated complaint: abdominal pain, 16-17 wks preg Time Seen by Provider: 10/16/24 08:55 History of Present Illness HPI narrative: 34-year-old female that is approximately 16 weeks presents to the emergency department for evaluation for upper abdominal pain that was worsened after eating. Patient states she is currently on medications for preeclampsia, 500 mg of labetalol b.i.d., patient did not take her morning dose today. Patient states after eating she had upper abdominal discomfort which she felt was similar to contractions. Related Data Home Medications ?Medication ?Instructions ?Recorded ?Confirmed ?Last Taken ?Type labetalol 200 mg tablet 200 mg PO BID 05/01/20 05/01/20 02/22/22 04:00 History aspirin 81 mg tablet 81 mg PO DAILY 02/22/22 02/22/22 02/22/22 04:00 History Allergies Allergy/AdvReac Type Severity Reaction Status Date / Time diphtheria,pertussis Allergy Severe Seizure Verified 10/16/24 08:54 (acellular),te (From Adacel(Tdap Adolesn/Adult)(PF)) cocoa butter Allergy Mild Hives Verified 10/16/24 08:54 Review of Systems Review of Systems: All systems reviewed & are unremarkable except as noted in HPI and below PMFSH Past Medical History Medical History Marijuana use Upper abdominal pain Hepatic steatosis Depression Human papilloma virus infection Gastroesophageal reflux disease Anxiety History of pre-eclampsia Nephrolithiasis Chronic hypertension Compound heterozygous MTHFR mutation [id number] Morbid obesity Surgical History Surgical History History of lithotripsy History of cholecystectomy History of tonsillectomy Family History Family History Father Kidney failure Arthritis Thyroid cancer Heart disease Father had a hole in his heart. Mother Tachycardia Thyroid cancer Grandparent Cerebrovascular accident Hypertension Kidney failure Thyroid cancer Heart disease Depression Son Asthma ADD (attention deficit disorder) Depression Social History Social History Social History: Surrogate decision maker: Chris Florencio, . Code status: Full code. Smoking status: Never smoker Second hand tobacco smoke exposure: No Alcohol intake: never Substance use: never Substance use type: marijuana Lack of Transportation: No Lack of Food: Never True Current Housing: I Have Housing Concerned About Future Housing: No Difficulty Paying Gas/Electric Bills: No Difficulty Paying for Meds: No Currently Unemployed: No Education: High School Diploma/GED Difficulty w/ Childcare or Family Care: No Living arrangements: with family Additional living arrangements comments: Lives in [place] with her and 3 children. 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 Gender identity (if verbalized by the patient): Female Sexual Orientation (if Verbalized by the Patient): Straight or Heterosexual Spiritual care concerns: No Agree to blood products: Yes Exam Narrative: APPEARANCE: Well appearing, no pain, no distress, well-nourished. HEAD: normocephalic, atraumatic. EYES: PERRLA/EOMI, conjunctivae clear. NOSE: Normal no drainage EARS:TMS clear with good light reflex. THROAT: Pharynx clear, no exudate. NECK: Supple. No adenopathy, no masses. RESPIRATORY: Airway patent, respirations nonlabored. Clear to auscultation bilaterally, no rales, rhonchi, wheezing. CARDIOVASCULAR: Regular rate and rhythm without murmurs rubs or gallops. ABDOMINAL: Soft, nontender, nondistended, normal bowel sounds MUSCULOSKELETAL: Moves all extremities. Strength/ROM intact, No edema, No calf tenderness. NEURO: Alert. Cranial nerves II through XII intact. Good gait. Good coordination SKIN: Warm, dry. Normal Color Course Vital Signs Vital signs: Vital Signs Temperature 97.8 F 10/16/24 08:45 Pulse Rate 83 10/16/24 08:45 Respiratory Rate 20 10/16/24 08:45 Blood Pressure 159/96 H 10/16/24 08:45 Pulse Oximetry 99 10/16/24 08:45 Oxygen Delivery Room Air 10/16/24 08:45 Temperature 97.8 F 10/16/24 08:45 Pulse Rate 74 10/16/24 11:29 Respiratory Rate 18 10/16/24 11:29 Blood Pressure 146/84 H 10/16/24 11:29 Pulse Oximetry 98 10/16/24 11:29 Oxygen Delivery Room Air 10/16/24 08:45 Medical Decision Making [facility] Narrative Medical decision making narrative: [age] old female presents to the emergency department for evaluation for upper abdominal pain and cramping. Patient is currently afebrile with no leukocytosis hemoglobin 11.4. Patient denies any urinary symptoms, urine culture was ordered due to the abnormal UA. no significant abnormalities on the patient's CMP. Patient's blood pressure was elevated on arrival but she was treated with her morning dose of labetalol and patient's blood pressure did significantly improve. On re-evaluation patient states she does feel improved. Patient will be started on omeprazole for possible underlying gastritis and patient was encouraged of close follow-up with her physicians including OB Gyne. heart tones were within normal limits. All questions concerns were addressed patient was comfortable the plan for discharge and close follow-up. Patient did have abnormal UA but denies any urinary symptoms, urine culture was ordered. Differential Diagnosis Differential Diagnosis: Urinary tract infection, gastritis, esophagitis, abdominal pain Vital Signs Vital Signs: Vital Signs Temperature 97.8 F 10/16/24 08:45 Pulse Rate 83 10/16/24 08:45 Respiratory Rate 20 10/16/24 08:45 Blood Pressure 159/96 H 10/16/24 08:45 Pulse Oximetry 99 10/16/24 08:45 Oxygen Delivery Room Air 10/16/24 08:45 Temperature 97.8 F 10/16/24 08:45 Pulse Rate 74 10/16/24 11:29 Respiratory Rate 18 10/16/24 11:29 Blood Pressure 146/84 H 10/16/24 11:29 Pulse Oximetry 98 10/16/24 11:29 Oxygen Delivery Room Air 10/16/24 08:45 Lab Data Lab results reviewed: Yes I reviewed the patient's lab results. 10/16/24 09:27 10/16/24 09:27 Labs: Lab Results 10/16/24 10/16/24 Range/Units 09:27 12:30 WBC 7.1 (4.5-10.0) K/mm3 RBC 4.41 (4.2-5.4) M/mm3 Hgb 11.4 L (12.0-15.0) g/dL Hct 35.4 L (37.0-47.0) % MCV 80.3 (80-100) fl MCH 25.9 L (26-34) pg MCHC 32.2 (32-36) g/dl RDW 14.9 H (11.5-14.5) % Plt Count 212 (150-375) k/mm3 MPV 9.4 (7.4-10.4) fl Immature Gran % (Auto) 0.7 H (0-0.5) % Neut % (Auto) 69.6 (45.5-73.1) % Lymph % (Auto) 19.4 (18.3-44.2) % Garza % (Auto) 7.2 (2.6-8.5) % Eos % (Auto) 2.5 (0-4.4) % Baso % (Auto) 0.6 (0.2-1.2) % Lymph # (Auto) 1.37 (0.9-3.2) K/mm3 Garza # (Auto) 0.5 (0.1-0.6) K/mm3 Eos # (Auto) 0.2 (0-0.3) K/mm3 Baso # (Auto) 0.0 (0.0-0.1) K/mm3 Abs Immat Gran (auto) 0.05 H (0.00-0.031) K/mm3 Absolute Neuts (auto) 4.9 (1.3-6.7) K/mm3 Absolute Nucleated RBC 0.000 (0.0-0.012) K/mm3 Nucleated RBC % 0.0 (0.0-0.2) % PT 15.3 H (11.1-14.7) Seconds INR 1.2 APTT 31.3 (22.3-36.8) Seconds Sodium 134 L (137-145) mmol/L Potassium 4.1 (3.4-5.0) mmol/L Chloride 104 (98-107) mmol/L Carbon Dioxide 21 L (22-30) mmol/L Anion Gap 9 (4-12) mmol/L BUN 7 D (7-17) mg/dL Creatinine 0.43 L (0.7-1.0) mg/dL Estim Creat Clear Calc 216 ml/min Estimated GFR > 60 (59 - ) Glucose 97 (65-110) mg/dL Lactic Acid 1.0 (0.7-2.0) mmol/L Calcium 9.1 (8.4-10.2) mg/dL Total Bilirubin 0.3 (0.2-1.3) mg/dL AST 23 (14-36) U/L ALT 17 (6-35) U/L Alkaline Phosphatase 51 (38-126) U/L Total Protein 7.0 (6.3-8.2) g/dL Albumin 3.8 (3.5-5.1) g/dL Lipase 31 (23-300) U/L Urine Color Yellow (Yellow) Urine Appearance Sl cloudy (Clear) Urine pH 5.5 (5.0-9.0) Ur Specific [place] > 1.030 (1.001-1.035) Urine Protein 1+ H (Negative) mg/dL Urine Glucose (UA) Negative (Negative) mg/dL Urine Ketones 4+ H (Negative) mg/dL Ur Blood (Man) Negative (Negative) Urine Nitrate Negative (Negative) Urine Bilirubin Negative (Negative) Urine Urobilinogen 0.2 (<2.0) mg/dL Leukocyte Esterase Rfl Negative (Negative) MATT/UL Urine RBC 3-5 H (0-2) /hpf Urine WBC 6-10 H (0-3) /hpf Ur Squamous Epith Cells Moderate (Few) /hpf Urine Bacteria Rare /hpf Urine Casts 0-2 Discharge Plan Discharge Clinical Impression: Acute upper abdominal pain, Gastritis Patient Disposition: Home Condition: Stable Instructions: Antibiotic Form, Abdominal Pain in (ED) Additional Instructions: Drink plenty fluids. Omeprazole as directed to help with gastritis. Have close follow-up with OB Gyne have close follow-up with her primary care physician. If you have any worsening symptoms please call or return to the emergency department. Patient Language: Sinhala Prescriptions: New omeprazole 20 mg capsule,delayed release(DR/EC) 20 mg PO DAILY 14 Days Qty: 14 0RF ondansetron 4 mg tablet,disintegrating 4 mg PO Q8H PRN (Reason: nausea and vomiting) Qty: 14 0RF No Action PNV no.95-ferrous fumarate-FA [] 28 mg iron- 800 mcg tablet 1 tablet PO DAILY Qty: 100 3RF labetalol 200 mg tablet 200 mg PO BID aspirin 81 mg Tablet 81 mg PO DAILY clindamycin HCl 300 mg capsule 300 mg PO Q6H 7 Days Qty: 28 0RF hydrocodone-acetaminophen 5-325 mg tablet 1 tablet PO Q8H PRN (Reason: pain) Qty: 14 0RF meclizine [Antivert] 50 mg tablet 50 mg PO BID PRN (Reason: dizziness) Qty: 20 0RF ondansetron 4 mg tablet,disintegrating 4 mg PO Q8H PRN (Reason: nausea and vomiting) Qty: 10 0RF Follow-up/Referrals: UNKNOWN,DOCTOR [Primary Care Provider]
[2024-10-16 09:33] LABS: Hematocrit 35.4 % (37.0-47.0); Hemoglobin 11.4 g/dL (12.0-15.0); Immature Granulocyte Percent A 0.7 % (0-0.5); Lymphocytes Absolute Auto 1.37 K/mm3 (0.9-3.2); Mean Corpuscular HGB Conc 32.2 g/dl (32-36); Mean Corpuscular Hemoglobin 25.9 pg (26-34); Mean Corpuscular Volume 80.3 fl (80-100); Nucleated Red Blood Cells Absolute Auto 0.000 K/mm3 (0.0-0.012); Nucleated Red Blood Cells Perc 0.0 % (0.0-0.2); Platelet Count Result 212 k/mm3 (150-375); Red Blood Count 4.41 M/mm3 (4.2-5.4); White Blood Count 7.1 K/mm3 (4.5-10.0)
[2024-10-16 09:44] LABS: Alanine Aminotransferase 17 U/L (6-35); Albumin Level 3.8 g/dL (3.5-5.1); Alkaline Phosphatase 51 U/L (38-126); Anion Gap 9 mmol/L (4-12); Aspartate Amino Transferase 23 U/L (14-36); Bilirubin,Total 0.3 mg/dL (0.2-1.3); Blood Urea Nitrogen 7 mg/dL (7-17); Calcium 9.1 mg/dL (8.4-10.2); Carbon Dioxide 21 mmol/L (22-30); Chloride 104 mmol/L (98-107); Estimated CRCL calculation 216 ml/min; Estimated Glomerular Filt Rate > 60; Glucose 97 mg/dL (65-110); INR 1.2; Lipase 31 U/L (23-300); Partial Thromboplastin Time 31.3 Seconds (22.3-36.8); Potassium 4.1 mmol/L (3.4-5.0); Prothrombin Time 15.3 Seconds (11.1-14.7); Sodium 134 mmol/L (137-145); Total Protein 7.0 g/dL (6.3-8.2)
[2024-10-16] MEDS: LACTATED RINGERS 1,000 ML 999 ML IV CONT (09:57)
[2024-10-16 10:05] VITALS: PULSE 72
[2024-10-16] MEDS: LABETALOL HCL 100 MG TABLET 400 MG PO (10:05)
[2024-10-16 10:07] VITALS: BP 163/90; PULSE 72; RESP 20; O2SAT 100
[2024-10-16 11:29] VITALS: BP 146/84; PULSE 74; RESP 18; O2SAT 98
[2024-10-16 12:49] LABS: Appearance Urine Sl Cloudy (Clear); Glucose Urine UA Negative (Negative); Nitrate Urine Negative (Negative); Specific Grav Ur > 1.030 (1.001-1.035)
[2024-10-16 12:50] LABS: Add Urine Microscopic? YES; Leukocyte Esterase Ur Negative LEU/UL (Negative)
[2024-10-16 12:51] LABS: Non Pathogenic Casts 0-2
== END 2024-10-16 13:40 | disposition home or self-care (01) ==
PROVIDERS: Emergency Provider Emergency Medicine
DX: O99.612 Diseases of the digestive system complicating pregnancy, second trimester (principal); K29.70 Gastritis, unspecified, without bleeding; Z3A.16 16 weeks gestation of pregnancy
CPT/HCPCS: 36415; 80053; 81001; 83605; 83690; 85025; 85610; 85730; 96361; 96374; 99284; A9270; J2470; J7120